=== PATIENT | female | born 2000 | race Caucasian/White ===

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

== ENCOUNTER 2020-01-27 02:10 | Emergency (ER) | payer OTHER, SELFPAY ==
[2020-01-27] MEDS ORDERED: ONDANSETRON 4 MG/2 ML VIAL ONE (02:57)
[2020-01-27] MEDS ORDERED: NA CHLORIDE 0.9% 1,000 ML ONE (02:57)
[2020-01-27 03:28] LABS: Absolute Lymphocytes (CBC) 3.4 K/uL (0.7-4.9); Basophils % 0.6 % (0-1.3); Hematocrit 36.4 % (36.0-45.0); Lymphocytes % 36.6 % (15.3-44.8); MPV 7.8 fL (7.6-11.3); RBC Red Blood Cell Count 4.12 M/uL (3.86-4.86)
[2020-01-27 03:41] LABS: BUN Blood Urea Nitrogen 8 mg/dL (7-18); Bicarbonate 24 mmol/L (21-32); Glucose Level 98 mg/dL (74-106); HCG, Quantitative 3472 mIU/mL (1-3); Sodium Level 142 mmol/L (136-145)
[2020-01-27] MEDS ORDERED: POTASSIUM 25 MEQ EFFERV TAB ONE (04:05)
[2020-01-27] MEDS ORDERED: NITROFURAN MACRO 100 MG CAP PO ONE (04:40)
[2020-01-27 05:53] LABS: Urine Blood 3+ (NEG); Urine Glucose TRACE (NEG); Urine Protein 3+ (NEG); Urine pH 8.5 (5.0-7.0)
--- NOTE | 2020-01-27 06:17 | EDPHYS ---
Physician Documentation [facility] Name: Nabila Quinonez Age: 19 yrs Sex: Female : 2000 Arrival Date: 01/27/2020 Time: 02:13 Bed 7 Private MD: ED Physician Samm Reid HPI: 01/26 02:31 This 19 yrs old Female presents to ER via Unassigned with complaints of mh7 Vaginal Bleeding, +6 WKS PREG. 02:31 The patient presents with vaginal bleeding that is heavy, with clots. Onset: The mh7 symptoms/episode began/occurred yesterday. Modifying factors: The symptoms are alleviated by nothing, the symptoms are aggravated by nothing. Associated signs and symptoms: Pertinent positives: cramping, vaginal bleeding, Pertinent negatives: constipation, diarrhea, dyspareunia, dysuria, fever, hematuria, nausea, urinary frequency, vaginal discharge, vomiting. Severity of symptoms: At their worst the symptoms were moderate, earlier today, in the emergency department the symptoms have improved, moderately. 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 - Social history:: Smoking status: Patient denies any tobacco usage or history of. Patient/guardian denies using alcohol, street drugs, IV drugs. ROS: 02:31 Constitutional: Negative for fever, chills, and weight loss, Eyes: Negative for injury, mh7 pain, redness, and discharge, ENT: Negative for injury, pain, and discharge, Neck: Negative for injury, pain, and swelling, Cardiovascular: Negative for chest pain, palpitations, and edema, Respiratory: Negative for shortness of breath, cough, wheezing, and pleuritic chest pain, Abdomen/GI: Negative for abdominal pain, nausea, vomiting, diarrhea, and constipation, Back: Negative for injury and pain, MS/Extremity: Negative for injury and deformity, Skin: Negative for injury, rash, and discoloration, Neuro: Negative for headache, weakness, numbness, tingling, and seizure, Psych: Negative for depression, anxiety, suicide ideation, homicidal ideation, and hallucinations, Allergy/Immunology: Negative for hives, rash, and allergies, Endocrine: Negative for neck swelling, polydipsia, polyuria, polyphagia, and marked weight changes, Hematologic/Lymphatic: Negative for swollen nodes, abnormal bleeding, and unusual bruising. Exam: 06:10 Constitutional: This is a well developed, well nourished patient who is awake, alert, mh7 and in no acute distress. Head/Face: Normocephalic, atraumatic. Eyes: Pupils equal round and reactive to light, extra-ocular motions intact. Lids and lashes normal. Conjunctiva and sclera are non-icteric and not injected. Cornea within normal limits. Periorbital areas with no swelling, redness, or edema. Neck: Trachea midline, no thyromegaly or masses palpated, and no cervical lymphadenopathy. Supple, full range of motion without nuchal rigidity, or vertebral point tenderness. No Meningismus. Chest/axilla: Normal chest wall appearance and motion. Nontender with no deformity. No lesions are appreciated. Cardiovascular: Regular rate and rhythm with a normal S1 and S2. No gallops, murmurs, or rubs. Normal PMI, no JVD. No pulse deficits. Respiratory: Lungs have equal breath sounds bilaterally, clear to auscultation and percussion. No rales, rhonchi or wheezes noted. No increased work of breathing, no retractions or nasal flaring. Abdomen/GI: Soft, non-tender, with normal bowel sounds. No distension or tympany. No guarding or rebound. No evidence of tenderness throughout. Back: No spinal tenderness. No costovertebral tenderness. Full range of motion. 06:10 Skin: Warm, dry with normal turgor. Normal color with no rashes, no lesions, and no evidence of cellulitis. MS/ Extremity: Pulses equal, no cyanosis. Neurovascular intact. Full, normal range of motion. Neuro: Awake and alert, GCS 15, oriented to person, place, time, and situation. Cranial nerves II-XII grossly intact. Motor strength 5/5 in all extremities. Sensory grossly intact. Cerebellar exam normal. Normal gait. Psych: Awake, alert, with orientation to person, place and time. Behavior, mood, and affect are within normal limits. 06:10 : CVA tenderness, is absent, Pelvic Exam: External exam: is normal, Speculum exam: mild bleeding, no cervicitis, os that is open, tissue in cervix is seen, tissue in vagina is seen, bimanual exam reveals no cervical motion tenderness, os that is open, normal sized uterus, no uterine tenderness, no adnexa tenderness or masses bilaterally, discharge, is not appreciated, the nurse was present for the exam, Gravid exam: Bladder: is normal, Rectal exam: is refused by patient or guardian. Vital Signs: 02:37 BP 110 / 67; Pulse 84; Resp 18; Pulse Ox 100% on R/A; Weight 65.77 kg; Height 5 ft. 6 mg2 in. (167.64 cm); 03:44 Temp 97.8(TE); mg2 04:09 BP 103 / 65; Pulse 81; Resp 18; Pulse Ox 100% on R/A; mg2 05:31 BP 108 / 67; Pulse 90; Resp 18; Pulse Ox 100% on R/A; mg2 02:37 Body Mass Index 23.40 (65.77 kg, 167.64 cm) mg2 MDM: 06:10 Differential diagnosis: ectopic , menometrorrhagia, menorrhea, threatened Ab, mh7 inevitable Ab, complete Ab, retained Ab, septic Ab, missed Ab. Data reviewed: vital signs, nurses notes, lab test result(s), Beta HCG: CBC, electrolytes, urinalysis, radiologic studies, ultrasound. Data interpreted: Pulse oximetry: on room air is 100 %. Interpretation: normal. Counseling: I had a detailed discussion with the patient and/or guardian regarding: the historical points, exam findings, and any diagnostic results supporting the discharge/admit diagnosis, lab results, radiology results, to return to the emergency department if symptoms worsen or persist or if there are any questions or concerns that arise at home. Response to treatment: the patient's symptoms have resolved after treatment, the patient's blood pressure is in an acceptable range, mental status has returned to baseline, the patient no longer shows bradycardia, the patient is not short of breath, the patient is not tachycardic, the patient's pain is gone, the patient's temperature has normalized. 06:16 Patient medically screened. mh7 07:36 ED course: Well appearing, NAD. VSS, no focal neurological deficits. Discussed test [facility] results and findings with the patient. Also discussed treatment options including spontaneous passage, Misoprostol, and D\T\C. Patient preferred to try spontaneous passage. She will follow up with her doctor but agreed to return to the ED if worsening of symptoms or other concerns.. 01/26 02:30 Order name: Abo/rh Typing; Complete Time: 04:09 [facility] 01/26 02:30 Order name: Basic Metabolic Panel; Complete Time: 03:45 [facility] 01/26 02:30 Order name: CBC with Diff; Complete Time: 03:45 [facility] 01/26 02:30 Order name: HCG-Quantitative; Complete Time: 03:45 [facility] 01/26 04:10 Order name: Urine --Ancillary (enter results) [facility] 01/26 04:10 Order name: Urine Dipstick--Ancillary (enter results) [facility] 01/26 02:30 Order name: IV Saline Lock; Complete Time: 02:57 [facility] 01/26 02:30 Order name: Labs collected and sent; Complete Time: 02:57 [facility] 01/26 02:30 Order name: US Transvaginal Ob [facility] 01/26 02:30 Order name: NPO; Complete Time: 02:57 [facility] 01/26 02:30 Order name: Urine Dipstick-Ancillary (obtain specimen); Complete Time: 04:08 [facility] 01/26 02:30 Order name: Urine Test (obtain specimen); Complete Time: 03:01 7 Administered Medications: 03:01 Drug: Zofran (Ondansetron) 4 mg Route: IVP; Site: left forearm; mg2 03:53 Follow up: Response: No adverse reaction mg2 03:01 Drug: NS 0.9% 1000 ml Route: IV; Rate: 1000 ml; Site: left forearm; mg2 04:02 Drug: Potassium Effervescent Tablet 50 mEq Route: PO; mg2 04:02 Follow up: Response: No adverse reaction mg2 04:35 Drug: Macrobid 100 mg Route: PO; mg2 Disposition: 01/27/20 06:16 Discharged to Home. Impression: Incomplete spontaneous without complication, Urinary tract infection, site not specified. - Condition is Stable. - Discharge Instructions: Urinary Tract Infection, Adult, [id number], Miscarriage, [id number]. - Prescriptions for Zofran ODT 4 mg Oral tablet,disintegrating - place 1 tablet by TRANSLINGUAL route every 8 hours As needed; 6 tablet. Tylenol- Codeine #3 300-30 mg Oral Tablet - take 1 tablet by ORAL route every 6 hours As needed; 12 tablet. Macrobid 100 mg Oral Capsule - take 1 capsule by ORAL route every 12 hours for 7 days; 14 capsule. - Medication Reconciliation Form, Thank You Letter, Antibiotic Education, Prescription Opioid Use form. - Follow up: Private Physician; When: 24 Hours; Reason: Worsening of condition, Recheck today's complaints, Continuance of care, Re-evaluation by your physician. Follow up: Ivania Barreto MD; When: 24 Hours; Reason: Worsening of condition, Recheck today's complaints. - Problem is new. - Symptoms have improved. Signatures: Dispatcher [employer] EDVA Brittany Vega RN RN lp1 John García RN RN mg2 Samm Reid MD MD 7 Corrections: (The following items were deleted from the chart) 03:54 03:46 Transvaginal Study (Probe)+[email or web address] ordered. [facility] 06:16 06:16 01/27/2020 06:16 Discharged to Home. Impression: Incomplete spontaneous mh7 without complication. Condition is Stable. Forms are Medication Reconciliation Form, Thank You Letter, Antibiotic Education, Prescription Opioid Use. Follow up: Private Physician; When: 24 Hours; Reason: Worsening of condition, Recheck today's complaints, Continuance of care, Re-evaluation by your physician. Follow up: Ivania Dent; When: 24 Hours; Reason: Worsening of condition, Recheck today's complaints. Problem is new. Symptoms have improved. mh7 06:23 06:16 01/27/2020 06:16 Discharged to Home. Impression: Incomplete spontaneous mg2 without complication; Urinary tract infection, site not specified. Condition is Stable. Forms are Medication Reconciliation Form, Thank You Letter, Antibiotic Education, Prescription Opioid Use. Follow up: Private Physician; When: 24 Hours; Reason: Worsening of condition, Recheck today's complaints, Continuance of care, Re-evaluation by your physician. Follow up: Ivania Jax Dent; When: 24 Hours; Reason: Worsening of condition, Recheck today's complaints. Problem is new. Symptoms have improved. mh7
--- NOTE | 2020-01-27 06:17 | ER ---
Nurse's Notes [facility] Name: Nabila Quinonez Age: 19 yrs Sex: Female : 2000 Arrival Date: 01/27/2020 Time: 02:13 Bed 7 Private MD: Diagnosis: Incomplete spontaneous without complication;Urinary tract infection, site not specified Presentation: 01/26 02:37 Chief complaint: Parent and/or Guardian states: she is 6 weeks , been having mg2 vag bleeding and abdominal pain since yesterday was seen in [facility] yesterday. Coronavirus screen: Client denies travel out of the [place] in the last 14 days. At this time, the client does not indicate any symptoms associated with coronavirus-19. Ebola Screen: No symptoms or risks identified at this time. Initial Sepsis Screen: Does the patient meet any 2 criteria? No. Patient's initial sepsis screen is negative. Does the patient have a suspected source of infection? No. Patient's initial sepsis screen is negative. Risk Assessment: Do you want to hurt yourself or someone else? Patient reports no desire to harm self or others. Onset of symptoms was January 26, 2020. 02:37 Method Of Arrival: Wheelchair mg2 02:37 Acuity: FRENCH 3 mg2 Triage Assessment: 02:57 General: Appears in no apparent distress. comfortable, Behavior is calm, cooperative. mg2 Pain: Complains of pain in abdomen. EENT: No signs and/or symptoms were reported regarding the EENT system. Neuro: Level of Consciousness is awake, alert, obeys commands, Oriented to person, place, time, situation. Cardiovascular: Capillary refill < 3 seconds Patient's skin is warm and dry. Respiratory: Airway is patent Respiratory effort is even, unlabored, Respiratory pattern is regular, symmetrical. GI: Reports lower abdominal pain, vomiting. : Reports vaginal bleeding that is with clots, moderate flow, since yesterday. Derm: Skin is intact, is healthy with good turgor, Skin is pink, warm \T\ dry. normal. Musculoskeletal: Circulation, motion, and sensation intact. Capillary refill < 3 seconds. 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 - Social history:: Smoking status: Patient denies any tobacco usage or history of. Patient/guardian denies using alcohol, street drugs, IV drugs. Screenin:58 Abuse screen: Denies threats or abuse. Denies injuries from another. Nutritional mg2 screening: No deficits noted. Tuberculosis screening: No symptoms or risk factors identified. Fall Risk IV access (20 points). Assessment: 02:58 General: see triage assessment. mg2 03:52 Reassessment: civil cadd technician at bedside to re-evaluate after pelvic exam and POC lp1 obtained with Dr. Reid. 04:08 Reassessment: POC sent to lab for histopathology. mg2 04:18 Reassessment: Verbal order from Dr. Reid for Macrobid 100mg PO now. lp1 05:31 Reassessment: Patient appears in no apparent distress at this time. Patient and/or mg2 family updated on plan of care and expected duration. Pain level reassessed. Vital Signs: 02:37 BP 110 / 67; Pulse 84; Resp 18; Pulse Ox 100% on R/A; Weight 65.77 kg; Height 5 ft. 6 mg2 in. (167.64 cm); 03:44 Temp 97.8(TE); mg2 04:09 BP 103 / 65; Pulse 81; Resp 18; Pulse Ox 100% on R/A; mg2 05:31 BP 108 / 67; Pulse 90; Resp 18; Pulse Ox 100% on R/A; mg2 02:37 Body Mass Index 23.40 (65.77 kg, 167.64 cm) mg2 ED Course: 02:13 Patient arrived in ED. bp1 02:23 Samm Reid MD is Attending Physician. mh7 02:37 John García, CORIN is Primary Nurse. mg2 02:39 Triage completed. mg2 02:39 Arm band placed on. mg2 02:59 Patient has correct armband on for positive identification. Pulse ox on. NIBP on. Door mg2 closed. Warm blanket given. 02:59 No provider procedures requiring assistance completed. Inserted saline lock: 22 gauge mg2 in left forearm, using aseptic technique. Blood collected. by JENNIFER Hendrix. 03:43 Transvaginal Ob In Process Unspecified. EDMS 03:45 Assist provider with pelvic exam: Set up pelvic tray. Performed by Samm Reid MD lp1 Specimens sent to lab. POC sent to pathology. 06:15 Ivania Barreto MD is Referral Physician. [facility] 06:22 IV discontinued, intact, bleeding controlled, No redness/swelling at site. Pressure mg2 dressing applied. Administered Medications: 03:01 Drug: Zofran (Ondansetron) 4 mg Route: IVP; Site: left forearm; mg2 03:53 Follow up: Response: No adverse reaction mg2 03:01 Drug: NS 0.9% 1000 ml Route: IV; Rate: 1000 ml; Site: left forearm; mg2 04:02 Drug: Potassium Effervescent Tablet 50 mEq Route: PO; mg2 04:02 Follow up: Response: No adverse reaction mg2 04:35 Drug: Macrobid 100 mg Route: PO; mg2 Outcome: 06:16 Discharge ordered by . [facility] 06:22 Discharged to home ambulatory, with family. mg2 06:22 Condition: stable 06:22 Discharge instructions given to patient, family, Instructed on discharge instructions, follow up and referral plans. medication usage, Demonstrated understanding of instructions, follow-up care, medications, Prescriptions given X 3. 06:23 Patient left the ED. mg2 Signatures: Dispatcher [employer] EDNC Brittany Vega RN RN lp1 John García RN RN mg2 Ai Spears Maurice, MD MD 7 Corrections: (The following items were deleted from the chart) 02:57 02:37 BP 110 / 67; Resp 18bpm; Pulse Ox 100% RA; 65.77 kg; Height 5 ft. 6 in.; BMI: mg2 23.4; mg2 05:32 05:31 Pulse 90bpm; Resp 18bpm; Pulse Ox 100% RA; mg2 mg2
[2020-01-27 06:40] VITALS: O2SAT 100
[2020-01-27 06:42] VITALS: TEMP 97.8
[2020-01-27 06:45] VITALS: BP 108/67
--- NOTE | 2020-01-27 08:01 | RAD REPORT ---
EXAM DESCRIPTION: US - Transvaginal OB - 01/27/2020 3:42 am CLINICAL HISTORY: with pelvic pain and vaginal bleeding COMPARISON: None. FINDINGS: The uterus measures 10 x 5 x 5 centimeters. A gestational sac is present within the lower uterine segment near the cervix. It contains a yolk sac. It measures 1.7 x 1 x 2.7 centimeters. A fe saida pole is not seen The right and left ovaries normal in size and echotexture the. Left ovary is normal in size and echot exture. . An adnexal mass is not noted. No significant free fluid is seen. IMPRESSION: These findings likely indicate an impending . The estimate gestational age 6 wee ks 0 days
== END 2020-01-27 06:23 | disposition home or self-care (01) ==
LOC: ER 02:10
DX: O03.4 Incomplete spontaneous abortion without complication (principal); O23.41 Unspecified infection of urinary tract in pregnancy, first trimester; Z3A.01 Less than 8 weeks gestation of pregnancy
CPT/HCPCS: 36415; 76817; 80048; 81003; 81025; 84702; 85025; 86900; 86901; 88305; 96374; 99284; J2405; J7030

== ENCOUNTER 2021-02-11 08:31 | Emergency (ER) | payer OTHER ==
--- OUTSIDE RECORDS SUMMARY | 2021-02-11 08:40 | XMS REPORT | Continuity of Care Document ---
:2000 Author Organization [facility] t Address [address] [place] [address] Care Team Providers Name Role Phone Angel ALVA C Primary Care Physician Visit, Nurse Attending Clinician Unavailable Angel ALVA C Attending Clinician Marlen ORTIZ Attending Clinician Unavailable Doctor Unassigned, Name Attending Clinician Unavailable Jorge BEATTY, N Attending Clinician Dillan APTEL Attending Clinician Unavailable Ang Castillo DO Attending Clinician Rina BEATTY, R Attending Clinician Sher FLYNN Attending Clinician Unavailable Brittany Villalta MD Attending Clinician Ajay PAC, S Attending Clinician 3, M[facility] Usg Room Attending Clinician Unavailable Kathryn Castillo MD Attending Clinician Lab Attending Clinician Unavailable Lab, Fam Pob I Attending Clinician Unavailable Naman BEATTY Attending Clinician Henri BEATTY, F Attending Clinician Pollo Haque MD Attending Clinician Katherine TAPIA Attending Clinician Unavailable Payers Payer Name Policy Type Policy Number Effective Date Expiration Date Pollo ESPINOS [id number] 2019 HEALTH 00:00:00 Advance Directives Directive Decision Effective Termination Comments Source Date Date Healthcare Agents on N/A Univ ersity FileNameRelationshipHealthcare of [place] Agent Medical RelationshipCommunicationSare Branch [facility] [phone] (Mobile) Problems Condition Condition Condition Status Onset Resolution Last Treating Co mments Source Name Details Category Date Date Treatment Clinician Date Positive Positive Disease Active Unive rs test for test for 5-07 ity of herpes herpes 00:00: [place] simplex simplex 00 Medical virus virus Branch (HSV) (HSV) antibody antibody Stress at Stress at Disease Active Uni vers home home 3-05 ity of 00:00: [place] 00 Medical Branch Rubella Rubella Disease Active 2019-03 Overview: Univ ers non-immune non-immune 0-14 Address i ty of status, status, 00:00: [facility] antepartum antepartum 00 Me dical Branch GBS (group GBS (group Disease Active 2019-03 Overview : Univers B B 0-09 Pending ity of streptococ streptococ [place] UTI cus) UTI 00 Medica l complicati complicati Br anch ng ng Supervisio Supervisio Disease Active 2020- U nivers n of n of 0-07 ity of high[place]risk high[place] [facility] [place] Nausea and Nausea and Disease Active 2020- U nivers vomiting vomiting 0-07 ity of in in 00:00: [place] 00 [facility] Branch Chlamydia Chlamydia Disease Active Uni vers trachomati trachomati 831 it y of s s 00:00: [place] infection infection 00 Medi lazaro of lower of lower Branch genitourin genitourin tonya sites tonya sites BMI BMI Disease Active 2020- Univers 24.0-24.9, 24.0-24.9, 8-28 it y of adult adult 00:00: [place] 00 Medical Branch Encounter Encounter Disease Active Uni vers for other for other 8 ity of general general 00:00: [place] counseling counseling 00 Me dical or advice or advice Bran ch on on contracept contracept ion ion Marijuana Marijuana Disease Active Overview: Univers use use 8- Formattin ity of 00:00: g of this [place] 00 note Medical might be Branch different from the original. Reports quit 10/1/20, but states daily use prior to finding out about Allergies, Adverse Reactions, Alerts Allergy Allergy Status Severity Reaction(s) Onset Inactive Treating Comm ents Source Name Type Date Date Clinician NO KNOWN Drug Active Univers ALLERGIE Class ity of S [place] [facility] Social History Social Habit Start Date Stop Date Quantity Comments Source ASSERTION 2019-12-10 University of 00:00:00 [place] [facility] Exposure to Not sure University SARS-CoV-2 [place] [facility] (event) Branch Alcohol intake 2020-11-27 2020-11-27 Current drinker Unive rsity of 00:00:00 00:00:00 of alcohol [place] Medical (finding) Branch Tobacco use and 2020-05-15 2020-05-15 Never used Universit y of exposure 00:00:00 00:00:00 [place] [facility] History SDOH 2020-05-15 2020-05-15 2 University o f Alcohol Frequency 00:00:00 00:00:00 [facility] edical Branch Alcohol Comment 2020-05-15 2020-05-15 social Universit y of 00:00:00 00:00:00 [place] [facility] History SDOH 2019-11-08 2019-11-08 99 University o f Alcohol Std 00:00:00 00:00:00 [place] Medical Drinks Branch History SDOK 2019-11-08 2019-11-08 99 University o f Alcohol Binge 00:00:00 00:00:00 [facility] al Branch Sex Assigned At 2000 2000 Universit y of 00:00:00 00:00:00 [facility] Branch Smoking Status Start Date Stop Date Source Unknown if ever smoked Universit y of [place] [facility] [place] Current some day smoker 2020-07-16 00:00:00 [facility] ersity of [facility] Never smoker [facility] Medications Ordered Filled Start Stop Current Ordering Indication Dosage Frequency Signature Comments Components Source Medication Medication Date Date Medication? Clinician (SIG) Name Name medroxyPROG 2021- 150mg Uni vers ESTERone 05-29 control ity of (DEPO-PROVE 16:00: 16:59 counseling [place] RA) 00 :00 Medical injection Branch 150 mg medroxyPROG 2021- No [id number] 150mg Univers ESTERone 3-19 02-18 ity of (DEPO-PROVE 16:00: 16:59 [place] RA) 00 :00 Medical injection Branch 150 mg medroxyPROG 2021-0 2- No [id number] 150mg 150 mg, Univers ESTERone 3-01 05-18 Intramuscu ity of (DEPO-PROVE 16:00: 16:59 lar, [place] RA) 00 :00 [id number], Medical injection 4 doses, Branch 150 mg First dose on Mon05/29/20 at 1100, Last dose on Mon02/05/21 at 1100, Routine medroxyPROG 2021-0 2- No [id number] 150mg Univers ESTERone 3-19 -18 ity of (DEPO-PROVE 16:00: 16:59 [place] RA) 00 :00 Medical injection Branch 150 mg medroxyPROG 2021-0 2- No [id number] 150mg 150 mg, Univers ESTERone 3-01 05-18 Intramuscu ity of (DEPO-PROVE 16:00: 16:59 lar, [place] RA) 00 :00 [id number], Medical injection 4 doses, Branch 150 mg First dose on Mon05/29/20 at 1100, Last dose on Mon02/05/21 at 1100, Routine medroxyPROG 2021-0 2- No [id number] 150mg Univers ESTERone 3-01 05-18 ity of (DEPO-PROVE 16:00: 16:59 [place] RA) 00 :00 Medical injection Branch 150 mg medroxyPROG 2021-0 2- No [id number] 150mg Univers ESTERone 3-19 -18 ity of (DEPO-PROVE 16:00: 16:59 [place] RA) 00 :00 Medical injection Branch 150 mg medroxyPROG 2021-0 2- No [id number] 150mg Univers ESTERone 3-19 -18 ity of (DEPO-PROVE 16:00: 16:59 [place] RA) 00 :00 Medical injection Branch 150 mg medroxyPROG 2021-0 2- No [id number] 150mg Univers ESTERone 3-19 -18 ity of (DEPO-PROVE 16:00: 16:59 [place] RA) 00 :00 Medical injection Branch 150 mg medroxyPROG 2021-0 2- No [id number] 150mg Univers ESTERone 3-19 -18 ity of (DEPO-PROVE 16:00: 16:59 [place] RA) 00 :00 Medical injection Branch 150 mg medroxyPROG 2021- No [id number] 150mg Univers ESTERone 05-2918 ity of (DEPO-PROVE 16:00: 16:59 [place] RA) 00 :00 Medical injection Branch 150 mg medroxyPROG 2021- No [id number] 150mg 150 mg, Univers ESTERone 05-29-18 Intramuscu ity of (DEPO-PROVE 16:00: 16:59 lar, [place] RA) 00 :00 [id number], Medical injection 4 doses, Branch 150 mg First dose on Mon05/29/20 at 1100, Last dose on Mon02/05/21 at 1100, Routine medroxyPROG 2021- No [id number] 150mg Univers ESTERone 05-2918 ity of (DEPO-PROVE 16:00: 16:59 [place] RA) 00 :00 Medical injection Branch 150 mg medroxyPROG 2021- No [id number] 150mg Univers ESTERone 05-2918 ity of (DEPO-PROVE 16:00: 16:59 [place] RA) 00 :00 Medical injection Branch 150 mg medroxyPROG 0 2021- No [id number] 150mg Univers ESTERone 05-2918 ity of (DEPO-PROVE 16:00: 16:59 [place] RA) 00 :00 Medical injection Branch 150 mg medroxyPROG 2021- No [id number] 150mg 150 mg, Univers ESTERone 05-29-18 Intramuscu ity of (DEPO-PROVE 16:00: 16:59 lar, [place] RA) 00 :00 [id number], Medical injection 4 doses, Branch 150 mg First dose on Mon05/29/20 at 1100, Last dose on Mon02/05/21 at 1100, Routine medroxyPROG 2022- No 150mg Uni vers ESTERone 05-2918 control ity of (DEPO-PROVE 16:00: 16:59 counseling [place] RA) 00 :00 Medical injection Branch 150 mg multivitami Yes Take by Un kadeem n (DAILY 3-05 mouth. ity of VITAMINS 16:03: [place] ORAL) 28 Medical Branch multivitami 0 Yes Take by Un kadeem n (DAILY 3-05 mouth. ity of VITAMINS 16:03: [place] ORAL) 28 Medical Branch multivitami 0 Yes Take by Un kadeem n (DAILY 3-05 mouth. ity of VITAMINS 16:03: [place] ORAL) 28 Medical Branch multivitami 0 Yes Take by Un kadeem n (DAILY 3-05 mouth. ity of VITAMINS 16:03: [place] ORAL) 28 Medical Branch multivitami 0 Yes Take by Un kadeem n (DAILY 3-05 mouth. ity of VITAMINS 16:03: [place] ORAL) 28 Medical Branch multivitami 0 Yes Take by Un kadeem n (DAILY 3-05 mouth. ity of VITAMINS 16:03: [place] ORAL) 28 Medical Branch multivitami 0 Yes Take by Un kadeem n (DAILY 3-05 mouth. ity of VITAMINS 16:03: [place] ORAL) 28 Medical Branch multivitami 0 Yes Take by Un kadeem n (DAILY 3-05 mouth. ity of VITAMINS 16:03: [place] ORAL) 28 Medical Branch multivitami 0 Yes Take by Un kadeem n (DAILY 3-05 mouth. ity of VITAMINS 16:03: [place] ORAL) 28 Medical Branch multivitami 0 Yes Take by Un kadeem n (DAILY 3-05 mouth. ity of VITAMINS 16:03: [place] ORAL) 28 Medical Branch multivitami 0 Yes Take by Un kadeem n (DAILY 3-05 mouth. ity of VITAMINS 16:03: [place] ORAL) 28 Medical Branch multivitami 0 Yes Take by Un kadeem n (DAILY 3-05 mouth. ity of VITAMINS 16:03: [place] ORAL) 28 Medical Branch multivitami 0 Yes Take by Un kadeem n (DAILY 3-05 mouth. ity of VITAMINS 10:03: [place] ORAL) 28 Medical Branch multivitami 0 Yes Take by Un kadeem n (DAILY 3-05 mouth. ity of VITAMINS 10:03: [place] ORAL) 28 Medical Branch multivitami 0 Yes Take by Un kadeem n (DAILY 3-05 mouth. ity of VITAMINS 10:03: [place] ORAL) 28 Medical Branch multivitami Yes Take by Un kadeem n (DAILY 3-05 mouth. ity of VITAMINS 10:03: [place] ORAL) 28 Medical Branch amoxicillin 2020- No [id number] 1{tbl} Take 1 Univers -clavulanat -18 -29 tablet by it y of e 875-125 00:00: 05:59 mouth [place] mg per 00 :00 every 12 Medical tablet (twelve) Branch hours for 10 days. amoxicillin 2020- No [id number] 1{tbl} Take 1 Univers -clavulanat -18 - tablet by it y of e 875-125 00:00: 05:59 mouth [place] mg per 00 :00 every 12 Medical tablet (twelve) Branch hours for 10 days. ampicillin 2019-03 2020- No [id number] 500mg Take 1 Univers 500 mg 0-09 10-20 capsule by ity of capsule 00:00: 04:59 mouth 4 [place] 00 :00 (four) Medical times Branch daily for 10 days. ampicillin 2019-03- No [id number] 500mg Take 1 Univers 500 mg 0-09 10-20 capsule by ity of capsule 00:00: 04:59 mouth 4 [place] 00 :00 (four) Medical times Branch daily for 10 days. ampicillin 2019-03- No [id number] 500mg Take 1 Univers 500 mg 0-09 10-20 capsule by ity of capsule 00:00: 04:59 mouth 4 [place] 00 :00 (four) Medical times Branch daily for 10 days. proMETHazin 2019-03 Yes [id number] 25mg Take 1 Univers e 25 mg 0-07 tablet by ity of tablet 00:00: mouth [place] 00 every 6 Medical (six) Branch hours as needed for Nausea and Vomiting (N/V). PNV 67-iron 2019-03 Yes [id number] 1{each} Take 1 Univers ps-folate 0-07 Each by ity of no.1-dha 00:00: mouth [place] (VITAFOL 00 daily. Medical ULTRA) 29 Branch mg iron- 1 mg-200 mg Cap proMETHazin 2019-03 Yes [id number] 25mg Take 1 Univers e 25 mg 0-07 tablet by ity of tablet 00:00: mouth [place] 00 every 6 Medical (six) Branch hours as needed for Nausea and Vomiting (N/V). PNV 67-iron 2020-1 Yes [id number] 1{each} Take 1 Univers ps-folate 0-07 Each by ity of no.1-dha 00:00: mouth [place] (VITAFOL 00 daily. Medical ULTRA) 29 Branch mg iron- 1 mg-200 mg Cap proMETHazin 2020-1 Yes [id number] 25mg Take 1 Univers e 25 mg 0-07 tablet by ity of tablet 00:00: mouth [place] 00 every 6 Medical (six) Branch hours as needed for Nausea and Vomiting (N/V). PNV 67-iron 2020-1 Yes [id number] 1{each} Take 1 Univers ps-folate 0-07 Each by ity of no.1-dha 00:00: mouth [place] (VITAFOL 00 daily. Medical ULTRA) 29 Branch mg iron- 1 mg-200 mg Cap proMETHazin 2020-1 Yes [id number] 25mg Take 1 Univers e 25 mg 0-07 tablet by ity of tablet 00:00: mouth [place] 00 every 6 Medical (six) Branch hours as needed for Nausea and Vomiting (N/V). PNV 67-iron 2020-1 Yes [id number] 1{each} Take 1 Univers ps-folate 0-07 Each by ity of no.1-dha 00:00: mouth [place] (VITAFOL 00 daily. Medical ULTRA) 29 Branch mg iron- 1 mg-200 mg Cap proMETHazin 2020-1 Yes [id number] 25mg Take 1 Univers e 25 mg 0-07 tablet by ity of tablet 00:00: mouth [place] 00 every 6 Medical (six) Branch hours as needed for Nausea and Vomiting (N/V). PNV 67-iron 2020-1 Yes [id number] 1{each} Take 1 Univers ps-folate 0-07 Each by ity of no.1-dha 00:00: mouth [place] (VITAFOL 00 daily. Medical ULTRA) 29 Branch mg iron- 1 mg-200 mg Cap proMETHazin 2020-1 Yes [id number] 25mg Take 1 Univers e 25 mg 0-07 tablet by ity of tablet 00:00: mouth [place] 00 every 6 Medical (six) Branch hours as needed for Nausea and Vomiting (N/V). PNV 67-iron 2020-1 Yes [id number] 1{each} Take 1 Univers ps-folate 0-07 Each by ity of no.1-dha 00:00: mouth [place] (VITAFOL 00 daily. Medical ULTRA) 29 Branch mg iron- 1 mg-200 mg Cap proMETHazin 2020-1 Yes [id number] 25mg Take 1 Univers e 25 mg 0-07 tablet by ity of tablet 00:00: mouth [place] 00 every 6 Medical (six) Branch hours as needed for Nausea and Vomiting (N/V). PNV 67-iron 2020- Yes [id number] 1{each} Take 1 Univers ps-folate 0-07 Each by ity of no.1-dha 00:00: mouth [place] (VITAFOL 00 daily. Medical ULTRA) 29 Branch mg iron- 1 mg-200 mg Cap proMETHazin 2020-1 Yes [id number] 25mg Take 1 Univers e 25 mg 0-07 tablet by ity of tablet 00:00: mouth [place] 00 every 6 Medical (six) Branch hours as needed for Nausea and Vomiting (N/V). PNV 67-iron 2020- Yes [id number] 1{each} Take 1 Univers ps-folate 0-07 Each by ity of no.1-dha 00:00: mouth [place] (VITAFOL 00 daily. Medical ULTRA) 29 Branch mg iron- 1 mg-200 mg Cap proMETHazin 2020-1 Yes [id number] 25mg Take 1 Univers e 25 mg 0-07 tablet by ity of tablet 00:00: mouth [place] 00 every 6 Medical (six) Branch hours as needed for Nausea and Vomiting (N/V). PNV 67-iron 2020- Yes [id number] 1{each} Take 1 Univers ps-folate 0-07 Each by ity of no.1-dha 00:00: mouth [place] (VITAFOL 00 daily. Medical ULTRA) 29 Branch mg iron- 1 mg-200 mg Cap proMETHazin 2020-1 Yes [id number] 25mg Take 1 Univers e 25 mg 0-07 tablet by ity of tablet 00:00: mouth [place] 00 every 6 Medical (six) Branch hours as needed for Nausea and Vomiting (N/V). PNV 67-iron 2020- Yes [id number] 1{each} Take 1 Univers ps-folate 0-07 Each by ity of no.1-dha 00:00: mouth [place] (VITAFOL 00 daily. Medical ULTRA) 29 Branch mg iron- 1 mg-200 mg Cap proMETHazin 2020-1 Yes [id number] 25mg Take 1 Univers e 25 mg 0-07 tablet by ity of tablet 00:00: mouth [place] 00 every 6 Medical (six) Branch hours as needed for Nausea and Vomiting (N/V). PNV 67-iron 2020-1 Yes [id number] 1{each} Take 1 Univers ps-folate 0-07 Each by ity of no.1-dha 00:00: mouth [place] (VITAFOL 00 daily. Medical ULTRA) 29 Branch mg iron- 1 mg-200 mg Cap proMETHazin 2020-1 Yes [id number] 25mg Take 1 Univers e 25 mg 0-07 tablet by ity of tablet 00:00: mouth [place] 00 every 6 Medical (six) Branch hours as needed for Nausea and Vomiting (N/V). PNV 67-iron 2020- Yes [id number] 1{each} Take 1 Univers ps-folate 0-07 Each by ity of no.1-dha 00:00: mouth [place] (VITAFOL 00 daily. Medical ULTRA) 29 Branch mg iron- 1 mg-200 mg Cap proMETHazin 2020-1 Yes [id number] 25mg Take 1 Univers e 25 mg 0-07 tablet by ity of tablet 00:00: mouth [place] 00 every 6 Medical (six) Branch hours as needed for Nausea and Vomiting (N/V). PNV 67-iron 2020- Yes [id number] 1{each} Take 1 Univers ps-folate 0-07 Each by ity of no.1-dha 00:00: mouth [place] (VITAFOL 00 daily. Medical ULTRA) 29 Branch mg iron- 1 mg-200 mg Cap proMETHazin 2020-1 Yes [id number] 25mg Take 1 Univers e 25 mg 0-07 tablet by ity of tablet 00:00: mouth [place] 00 every 6 Medical (six) Branch hours as needed for Nausea and Vomiting (N/V). PNV 67-iron 2020-1 Yes [id number] 1{each} Take 1 Univers ps-folate 0-07 Each by ity of no.1-dha 00:00: mouth [place] (VITAFOL 00 daily. Medical ULTRA) 29 Branch mg iron- 1 mg-200 mg Cap proMETHazin 2020-1 Yes [id number] 25mg Take 1 Univers e 25 mg 0-07 tablet by ity of tablet 00:00: mouth [place] 00 every 6 Medical (six) Branch hours as needed for Nausea and Vomiting (N/V). PNV 67-iron 2020-1 Yes [id number] 1{each} Take 1 Univers ps-folate 0-07 Each by ity of no.1-dha 00:00: mouth [place] (VITAFOL 00 daily. Medical ULTRA) 29 Branch mg iron- 1 mg-200 mg Cap proMETHazin 2020-1 Yes [id number] 25mg Take 1 Univers e 25 mg 0-07 tablet by ity of tablet 00:00: mouth [place] 00 every 6 Medical (six) Branch hours as needed for Nausea and Vomiting (N/V). PNV 67-iron 2020-1 Yes [id number] 1{each} Take 1 Univers ps-folate 0-07 Each by ity of no.1-dha 00:00: mouth [place] (VITAFOL 00 daily. Medical ULTRA) 29 Branch mg iron- 1 mg-200 mg Cap proMETHazin 2020-1 Yes [id number] 25mg Take 1 Univers e 25 mg 0-07 tablet by ity of tablet 00:00: mouth [place] 00 every 6 Medical (six) Branch hours as needed for Nausea and Vomiting (N/V). PNV 67-iron 2020-1 Yes [id number] 1{each} Take 1 Univers ps-folate 0-07 Each by ity of no.1-dha 00:00: mouth [place] (VITAFOL 00 daily. Medical ULTRA) 29 Branch mg iron- 1 mg-200 mg Cap proMETHazin 2020-1 Yes [id number] 25mg Take 1 Univers e 25 mg 0-07 tablet by ity of tablet 00:00: mouth [place] 00 every 6 Medical (six) Branch hours as needed for Nausea and Vomiting (N/V). PNV 67-iron 2020-1 Yes [id number] 1{each} Take 1 Univers ps-folate 0-07 Each by ity of no.1-dha 00:00: mouth [place] (VITAFOL 00 daily. Medical ULTRA) 29 Branch mg iron- 1 mg-200 mg Cap proMETHazin 2020-1 Yes [id number] 25mg Take 1 Univers e 25 mg 0-07 tablet by ity of tablet 00:00: mouth [place] 00 every 6 Medical (six) Branch hours as needed for Nausea and Vomiting (N/V). PNV 67-iron 2020-1 Yes [id number] 1{each} Take 1 Univers ps-folate 0-07 Each by ity of no.1-dha 00:00: mouth [place] (VITAFOL 00 daily. Medical ULTRA) 29 Branch mg iron- 1 mg-200 mg Cap proMETHazin 2020-1 Yes [id number] 25mg Take 1 Univers e 25 mg 0-07 tablet by ity of tablet 00:00: mouth [place] 00 every 6 Medical (six) Branch hours as needed for Nausea and Vomiting (N/V). PNV 67-iron 2020- Yes [id number] 1{each} Take 1 Univers ps-folate 0-07 Each by ity of no.1-dha 00:00: mouth [place] (VITAFOL 00 daily. Medical ULTRA) 29 Branch mg iron- 1 mg-200 mg Cap proMETHazin 2020-1 Yes [id number] 25mg Take 1 Univers e 25 mg 0-07 tablet by ity of tablet 00:00: mouth [place] 00 every 6 Medical (six) Branch hours as needed for Nausea and Vomiting (N/V). PNV 67-iron 2020- Yes [id number] 1{each} Take 1 Univers ps-folate 0-07 Each by ity of no.1-dha 00:00: mouth [place] (VITAFOL 00 daily. Medical ULTRA) 29 Branch mg iron- 1 mg-200 mg Cap proMETHazin 2020-1 Yes [id number] 25mg Take 1 Univers e 25 mg 0-07 tablet by ity of tablet 00:00: mouth [place] 00 every 6 Medical (six) Branch hours as needed for Nausea and Vomiting (N/V). PNV 67-iron 2020- Yes [id number] 1{each} Take 1 Univers ps-folate 0-07 Each by ity of no.1-dha 00:00: mouth [place] (VITAFOL 00 daily. Medical ULTRA) 29 Branch mg iron- 1 mg-200 mg Cap proMETHazin 2020-1 Yes [id number] 25mg Take 1 Univers e 25 mg 0-07 tablet by ity of tablet 00:00: mouth [place] 00 every 6 Medical (six) Branch hours as needed for Nausea and Vomiting (N/V). PNV 67-iron 2020- Yes [id number] 1{each} Take 1 Univers ps-folate 0-07 Each by ity of no.1-dha 00:00: mouth [place] (VITAFOL 00 daily. Medical ULTRA) 29 Branch mg iron- 1 mg-200 mg Cap proMETHazin 2020- Yes [id number] 25mg Take 1 Univers e 25 mg 0-07 tablet by ity of tablet 00:00: mouth [place] 00 every 6 Medical (six) Branch hours as needed for Nausea and Vomiting (N/V). PNV 67-iron 2020- Yes [id number] 1{each} Take 1 Univers ps-folate 0-07 Each by ity of no.1-dha 00:00: mouth [place] (VITAFOL 00 daily. Medical ULTRA) 29 Branch mg iron- 1 mg-200 mg Cap proMETHazin 2020- Yes [id number] 25mg Take 1 Univers e 25 mg 0-07 tablet by ity of tablet 00:00: mouth [place] 00 every 6 Medical (six) Branch hours as needed for Nausea and Vomiting (N/V). PNV 67-iron 2020- Yes [id number] 1{each} Take 1 Univers ps-folate 0-07 Each by ity of no.1-dha 00:00: mouth [place] (VITAFOL 00 daily. Medical ULTRA) 29 Branch mg iron- 1 mg-200 mg Cap proMETHazin 2020- Yes [id number] 25mg Take 1 Univers e 25 mg 0-07 tablet by ity of tablet 00:00: mouth [place] 00 every 6 Medical (six) Branch hours as needed for Nausea and Vomiting (N/V). PNV 67-iron 2020- Yes [id number] 1{each} Take 1 Univers ps-folate 0-07 Each by ity of no.1-dha 00:00: mouth [place] (VITAFOL 00 daily. Medical ULTRA) 29 Branch mg iron- 1 mg-200 mg Cap proMETHazin 2020- Yes [id number] 25mg Take 1 Univers e 25 mg 0-07 tablet by ity of tablet 00:00: mouth [place] 00 every 6 Medical (six) Branch hours as needed for Nausea and Vomiting (N/V). PNV 67-iron 2020- Yes [id number] 1{each} Take 1 Univers ps-folate 0-07 Each by ity of no.1-dha 00:00: mouth [place] (VITAFOL 00 daily. Medical ULTRA) 29 Branch mg iron- 1 mg-200 mg Cap proMETHazin 2020-2020- No [id number] 25mg Take 1 Univers e 25 mg 0-07 03-05 tablet by ity of tablet 00:00: 00:00 mouth [place] 00 :00 every 6 Medical (six) Branch hours as needed for Nausea and Vomiting (N/V). PNV 67-iron 2019-03 No [id number] 1{each} Take 1 Univers ps-folate 0-07 03-05 Each by ity of no.1-dha 00:00: 00:00 mouth [place] (VITAFOL 00 :00 daily. Medical ULTRA) 29 Branch mg iron- 1 mg-200 mg Cap proMETHazin 2019-03 No [id number] 25mg Take 1 Univers e 25 mg 0-07 03-05 tablet by ity of tablet 00:00: 00:00 mouth [place] 00 :00 every 6 Medical (six) Branch hours as needed for Nausea and Vomiting (N/V). PNV 67-iron 2019-03 No [id number] 1{each} Take 1 Univers ps-folate 0-07 03-05 Each by ity of no.1-dha 00:00: 00:00 mouth [place] (VITAFOL 00 :00 daily. Medical ULTRA) 29 Branch mg iron- 1 mg-200 mg Cap proMETHazin 2019-03- No [id number] 25mg Take 1 Univers e 25 mg 0-07 03-05 tablet by ity of tablet 00:00: 00:00 mouth [place] 00 :00 every 6 Medical (six) Branch hours as needed for Nausea and Vomiting (N/V). PNV 67-iron 2019-03 No [id number] 1{each} Take 1 Univers ps-folate 0-07 03-05 Each by ity of no.1-dha 00:00: 00:00 mouth [place] (VITAFOL 00 :00 daily. Medical ULTRA) 29 Branch mg iron- 1 mg-200 mg Cap azithromyci 2019- No [id number] 1000mg Take 2 Univers n 8-31 -01 tablets by ity of (ZITHROMAX) 00:00: 04:59 mouth once [place] 500 mg 00 :00 now for 1 Medical tablet dose. Branch No known No Univers medications ity [facility] No known No Univers medications ity of [facility] No known No Univers medications ity of [facility] Immunizations Ordered Immunization Filled Immunization Date Status Commen ts Source Name Name Influenza Virus 2019-12-18 Completed Universit y of Vaccine Quad .5 mL 00:00:00 [place] Medical IM 6+ MO Branch Influenza Virus 2019-12-18 Completed Universit y of Vaccine Quad .5 mL 00:00:00 [place] Medical IM 6+ MO Branch Influenza Virus 2019-12-18 Completed Universit y of Vaccine Quad .5 mL 00:00:00 [place] Medical IM 6+ MO Branch Influenza Virus 2019-12-18 Completed Universit y of Vaccine Quad .5 mL 00:00:00 [place] Medical IM 6+ MO Branch Influenza Virus 2019-12-18 Completed Universit y of Vaccine Quad .5 mL 00:00:00 [place] Medical IM 6+ MO Branch Influenza Virus 2019-12-18 Completed Universit y of Vaccine Quad .5 mL 00:00:00 [place] Medical IM 6+ MO Branch Influenza Virus 2019-12-18 Completed Universit y of Vaccine Quad .5 mL 00:00:00 [place] Medical IM 6+ MO Branch Influenza Virus 2019-12-18 Completed Universit y of Vaccine Quad .5 mL 00:00:00 [place] Medical IM 6+ MO Branch Influenza Virus 2019-12-18 Completed Universit y of Vaccine Quad .5 mL 00:00:00 [place] Medical IM 6+ MO Branch Influenza Virus 2019-12-18 Completed Universit y of Vaccine Quad .5 mL 00:00:00 [place] Medical IM 6+ MO Branch Influenza Virus 2019-12-18 Completed Universit y of Vaccine Quad .5 mL 00:00:00 [place] Medical IM 6+ MO Branch Influenza Virus 2019-12-18 Completed Universit y of Vaccine Quad .5 mL 00:00:00 [place] Medical IM 6+ MO Branch Influenza Virus 2019-12-18 Completed Universit y of Vaccine Quad .5 mL 00:00:00 [place] Medical IM 6+ MO Branch Influenza Virus 2019-12-18 Completed Universit y of Vaccine Quad .5 mL 00:00:00 [place] Medical IM 6+ MO Branch Influenza Virus 2019-12-18 Completed Universit y of Vaccine Quad .5 mL 00:00:00 [facility] Influenza Virus 2019-12-18 Completed [facility] .5 mL 00:00:00 [facility] Influenza Virus 2019-12-18 Completed [facility] .5 mL 00:00:00 [facility] Influenza Virus 2019-12-18 Completed [facility] .5 mL 00:00:00 [facility] Influenza Virus 2019-12-18 Completed [facility] .5 mL 00:00:00 [facility] Influenza Virus 2019-12-18 Completed [facility] .5 mL 00:00:00 [facility] Influenza Virus 2019-12-18 Completed [facility] .5 mL 00:00:00 [facility] Influenza Virus 2019-12-18 Completed [facility] .5 mL 00:00:00 [facility] Influenza Virus 2019-12-18 Completed [facility] .5 mL 00:00:00 [facility] Influenza Virus 2019-12-18 Completed [facility] .5 mL 00:00:00 [facility] Influenza Virus 2019-12-18 Completed [facility] .5 mL 00:00:00 [facility] Influenza Virus 2019-12-18 Completed [facility] .5 mL 00:00:00 [facility] Influenza Virus 2019-12-18 Completed [facility] .5 mL 00:00:00 [facility] Influenza Virus 2019-12-18 Completed [facility] .5 mL 00:00:00 [facility] Influenza Virus 2019-12-18 Completed [facility] .5 mL 00:00:00 [facility] Influenza Virus 2019-12-18 Completed [facility] .5 mL 00:00:00 [facility] Influenza Virus 2019-12-18 Completed [facility] .5 mL 00:00:00 [facility] Influenza Virus 2019-12-18 Completed [facility] .5 mL 00:00:00 [facility] Influenza Virus 2019-12-18 Completed [facility] .5 mL 00:00:00 [facility] Influenza Virus 2019-12-18 Completed [facility] .5 mL 00:00:00 [facility] Influenza Virus 2019-12-18 Completed [facility] .5 mL 00:00:00 [facility] Influenza Virus 2019-12-18 Completed [facility] .5 mL 00:00:00 [facility] Influenza Virus 2019-12-18 Completed [facility] .5 mL 00:00:00 [facility] Influenza Virus 2019-12-18 Completed [facility] .5 mL 00:00:00 [facility] Influenza Virus 2019-12-18 Completed [facility] .5 mL 00:00:00 [facility] Influenza Virus 2019-12-18 Completed [facility] .5 mL 00:00:00 [facility] Influenza Virus 2019-12-18 Completed [facility] .5 mL 00:00:00 [facility] 6+ MO [facility] Meningococcal 2019-02-13 Completed [facility] Vaccine 00:00:00 [facility] Meningococcal 2019-02-13 Completed [facility] Vaccine 00:00:00 [facility] Meningococcal 2019-02-13 Completed [facility] Vaccine 00:00:00 [facility] Meningococcal 2019-02-13 Completed [facility] Vaccine 00:00:00 [facility] Meningococcal 2019-02-13 Completed [facility] Vaccine 00:00:00 [facility] Meningococcal 2019-02-13 Completed [facility] Vaccine 00:00:00 [facility] Meningococcal 2019-02-13 Completed [facility] Vaccine 00:00:00 [facility] Meningococcal 2019-02-13 Completed [facility] Vaccine 00:00:00 [facility] Meningococcal 2019-02-13 Completed [facility] Vaccine 00:00:00 [facility] Meningococcal 2019-02-13 Completed [facility] Vaccine 00:00:00 [facility] Meningococcal 2019-02-13 Completed [facility] Vaccine 00:00:00 [facility] Meningococcal 2019-02-13 Completed [facility] Vaccine 00:00:00 [facility] Meningococcal 2019-02-13 Completed [facility] Vaccine 00:00:00 [facility] Meningococcal 2019-02-13 Completed [facility] Vaccine 00:00:00 [facility] Meningococcal 2019-02-13 Completed [facility] Vaccine 00:00:00 [facility] Meningococcal 2019-02-13 Completed [facility] Vaccine 00:00:00 [facility] HPV 2014-01-02 Completed [facility] 00:00:00 [facility] HPV 2014-01-02 Completed [facility] 00:00:00 [facility] HPV 2014-01-02 Completed [facility] 00:00:00 [facility] HPV 2014-01-02 Completed [facility] 00:00:00 [facility] HPV 2014-01-02 Completed [facility] 00:00:00 [facility] HPV 2014-01-02 Completed [facility] 00:00:00 [facility] HPV 2014-01-02 Completed [facility] 00:00:00 [facility] HPV 2014-01-02 Completed [facility] 00:00:00 [facility] HPV 2014-01-02 Completed [facility] 00:00:00 [facility] HPV 2014-01-02 Completed [facility] 00:00:00 [facility] HPV 2014-01-02 Completed [facility] 00:00:00 [facility] HPV 2014-01-02 Completed [facility] 00:00:00 [facility] HPV 2014-01-02 Completed [facility] 00:00:00 [facility] HPV 2014-01-02 Completed [facility] 00:00:00 [facility] HPV 2014-01-02 Completed [facility] 00:00:00 [facility] HPV 2014-01-02 Completed [facility] 00:00:00 [facility] TDAP 2012-12-25 Completed [facility] 00:00:00 [facility] HPV 2012-12-25 Completed [facility] 00:00:00 [facility] Meningococcal 2012-12-25 Completed [facility] Vaccine 00:00:00 [facility] TDAP 2012-12-25 Completed [facility] 00:00:00 [facility] HPV 2012-12-25 Completed [facility] 00:00:00 [facility] Meningococcal 2012-12-25 Completed [facility] Vaccine 00:00:00 [facility] HPV 2012-12-25 Completed [facility] 00:00:00 [facility] Meningococcal 2012-12-25 Completed [facility] Vaccine 00:00:00 [facility] TDAP 2012-12-25 Completed [facility] 00:00:00 [facility] HPV 2012-12-25 Completed [facility] 00:00:00 [facility] Meningococcal 2012-12-25 Completed [facility] Vaccine 00:00:00 [facility] TDAP 2012-12-25 Completed [facility] 00:00:00 [facility] HPV 2012-12-25 Completed [facility] 00:00:00 [facility] Meningococcal 2012-12-25 Completed [facility] Vaccine 00:00:00 [facility] TDAP 2012-12-25 Completed [facility] 00:00:00 [facility] HPV 2012-12-25 Completed [facility] 00:00:00 [facility] Meningococcal 2012-12-25 Completed [facility] Vaccine 00:00:00 [facility] TDAP 2012-12-25 Completed [facility] 00:00:00 [facility] HPV 2012-12-25 Completed [facility] 00:00:00 [facility] Meningococcal 2012-12-25 Completed [facility] Vaccine 00:00:00 [facility] TDAP 2012-12-25 Completed [facility] 00:00:00 [facility] HPV 2012-12-25 Completed [facility] 00:00:00 [facility] Meningococcal 2012-12-25 Completed [facility] Vaccine 00:00:00 [facility] TDAP 2012-12-25 Completed [facility] 00:00:00 [facility] HPV 2012-12-25 Completed [facility] 00:00:00 [facility] HPV 2012-12-25 Completed [facility] 00:00:00 [facility] Meningococcal 2012-12-25 Completed [facility] Vaccine 00:00:00 [facility] TDAP 2012-12-25 Completed [facility] 00:00:00 [facility] HPV 2012-12-25 Completed [facility] 00:00:00 [facility] Meningococcal 2012-12-25 Completed [facility] Vaccine 00:00:00 [facility] TDAP 2012-12-25 Completed [facility] 00:00:00 [facility] HPV 2012-12-25 Completed [facility] 00:00:00 [facility] Meningococcal 2012-12-25 Completed [facility] of Vaccine 00:00:00 [facility] TDAP 2012-12-25 Completed [facility] 00:00:00 [facility] HPV 2012-12-25 Completed [facility] 00:00:00 [facility] Meningococcal 2012-12-25 Completed [facility] Vaccine 00:00:00 [facility] TDAP 2012-12-25 Completed [facility] 00:00:00 [facility] HPV 2012-12-25 Completed [facility] 00:00:00 [facility] Meningococcal 2012-12-25 Completed [facility] Vaccine 00:00:00 [facility] Meningococcal 2012-12-25 Completed [facility] Vaccine 00:00:00 [facility] TDAP 2012-12-25 Completed [facility] 00:00:00 [facility] HPV 2012-12-25 Completed [facility] 00:00:00 [facility] Meningococcal 2012-12-25 Completed [facility] of Vaccine 00:00:00 [facility] TDAP 2012-12-25 Completed [facility] of 00:00:00 [facility] HPV 2012-12-25 Completed [facility] 00:00:00 [facility] Meningococcal 2012-12-25 Completed [facility] of Vaccine 00:00:00 [facility] TDAP 2012-12-25 Completed [facility] 00:00:00 [facility] TDAP 2012-12-25 Completed [facility] 00:00:00 [facility] Varicella 2006-05-10 Completed [facility] of (varivax)(chicken 00:00:00 [facility] pox[facility] HEPATITIS A 2006-05-10 Completed [facility] 00:00:00 [facility] Varicella 2006-05-10 Completed [facility] (varivax)(chicken 00:00:00 [facility] pox[facility] HEPATITIS A 2006-05-10 Completed [facility] 00:00:00 [facility] HEPATITIS A 2006-05-10 Completed [facility] 00:00:00 [facility] Varicella 2006-05-10 Completed [facility] (varivax)(chicken 00:00:00 [facility] pox[facility] HEPATITIS A 2006-05-10 Completed [facility] 00:00:00 [facility] Varicella 2006-05-10 Completed [facility] (varivax)(chicken 00:00:00 [facility] pox[facility] HEPATITIS A 2006-05-10 Completed [facility] 00:00:00 [facility] Varicella 2006-05-10 Completed [facility] (varivax)(chicken 00:00:00 [facility] pox) [facility] HEPATITIS A 2006-05-10 Completed [facility] 00:00:00 [facility] Varicella 2006-05-10 Completed [facility] (varivax)(chicken 00:00:00 [facility] pox[facility] HEPATITIS A 2006-05-10 Completed [facility] 00:00:00 [facility] Varicella 2006-05-10 Completed [facility] (varivax)(chicken 00:00:00 [facility] pox[facility] HEPATITIS A 2006-05-10 Completed [facility] 00:00:00 [facility] Varicella 2006-05-10 Completed [facility] (varivax)(chicken 00:00:00 [facility] pox) [facility] HEPATITIS A 2006-05-10 Completed [facility] 00:00:00 [facility] Varicella 2006-05-10 Completed [facility] (varivax)(chicken 00:00:00 [facility] pox) [facility] HEPATITIS A 2006-05-10 Completed [facility] 00:00:00 [facility] Varicella 2006-05-10 Completed [facility] (varivax)(chicken 00:00:00 [facility] pox) [facility] HEPATITIS A 2006-05-10 Completed [facility] 00:00:00 [facility] Varicella 2006-05-10 Completed [facility] (varivax)(chicken 00:00:00 [facility] pox) [facility] HEPATITIS A 2006-05-10 Completed [facility] 00:00:00 [facility] HEPATITIS A 2006-05-10 Completed [facility] 00:00:00 [facility] Varicella 2006-05-10 Completed [facility] (varivax)(chicken 00:00:00 [facility] pox) [facility] HEPATITIS A 2006-05-10 Completed [facility] 00:00:00 [facility] Varicella 2006-05-10 Completed [facility] (varivax)(chicken 00:00:00 [facility] pox[facility] HEPATITIS A 2006-05-10 Completed [facility] 00:00:00 [facility] Varicella 2006-05-10 Completed [facility] (varivax)(chicken 00:00:00 [facility] pox) [facility] HEPATITIS A 2006-05-10 Completed [facility] 00:00:00 [facility] Varicella 2006-05-10 Completed [facility] (varivax)(chicken 00:00:00 [facility] Varicella 2006-05-10 Completed [facility] (varivax)(chicken 00:00:00 [facility] MMR 2005-10-12 Completed [facility] 00:00:00 [facility] Polio (IPV/OPV) 2005-10-12 Completed [facility] 00:00:00 [facility] DTP 2005-10-12 Completed [facility] 00:00:00 [facility] HEPATITIS A 2005-10-12 Completed [facility] of 00:00:00 [facility] MMR 2005-10-12 Completed [facility] 00:00:00 [facility] Polio (IPV/OPV) 2005-10-12 Completed [facility] 00:00:00 [facility] DTP 2005-10-12 Completed [facility] 00:00:00 [facility] HEPATITIS A 2005-10-12 Completed [facility] 00:00:00 [facility] DTP 2005-10-12 Completed [facility] 00:00:00 [facility] HEPATITIS A 2005-10-12 Completed [facility] 00:00:00 [facility] MMR 2005-10-12 Completed [facility] 00:00:00 [facility] Polio (IPV/OPV) 2005-10-12 Completed [facility] 00:00:00 [facility] DTP 2005-10-12 Completed [facility] 00:00:00 [facility] HEPATITIS A 2005-10-12 Completed [facility] 00:00:00 [facility] MMR 2005-10-12 Completed [facility] of 00:00:00 [facility] Polio (IPV/OPV) 2005-10-12 Completed [facility] 00:00:00 [facility] DTP 2005-10-12 Completed [facility] 00:00:00 [facility] HEPATITIS A 2005-10-12 Completed [facility] 00:00:00 [facility] MMR 2005-10-12 Completed [facility] of 00:00:00 [facility] Polio (IPV/OPV) 2005-10-12 Completed [facility] 00:00:00 [facility] DTP 2005-10-12 Completed [facility] 00:00:00 [facility] HEPATITIS A 2005-10-12 Completed [facility] of 00:00:00 [facility] MMR 2005-10-12 Completed [facility] 00:00:00 [facility] Polio (IPV/OPV) 2005-10-12 Completed [facility] 00:00:00 [facility] DTP 2005-10-12 Completed [facility] 00:00:00 [facility] HEPATITIS A 2005-10-12 Completed [facility] 00:00:00 [facility] MMR 2005-10-12 Completed [facility] 00:00:00 [facility] Polio (IPV/OPV) 2005-10-12 Completed [facility] 00:00:00 [facility] DTP 2005-10-12 Completed [facility] 00:00:00 [facility] HEPATITIS A 2005-10-12 Completed [facility] 00:00:00 [facility] MMR 2005-10-12 Completed [facility] 00:00:00 [facility] Polio (IPV/OPV) 2005-10-12 Completed [facility] 00:00:00 [facility] DTP 2005-10-12 Completed [facility] 00:00:00 [facility] HEPATITIS A 2005-10-12 Completed [facility] 00:00:00 [facility] MMR 2005-10-12 Completed [facility] 00:00:00 [facility] Polio (IPV/OPV) 2005-10-12 Completed [facility] 00:00:00 [facility] DTP 2005-10-12 Completed [facility] 00:00:00 [facility] HEPATITIS A 2005-10-12 Completed [facility] 00:00:00 [facility] MMR 2005-10-12 Completed [facility] 00:00:00 [facility] Polio (IPV/OPV) 2005-10-12 Completed [facility] 00:00:00 [facility] DTP 2005-10-12 Completed [facility] 00:00:00 [facility] DTP 2005-10-12 Completed [facility] 00:00:00 [facility] HEPATITIS A 2005-10-12 Completed [facility] of 00:00:00 [facility] MMR 2005-10-12 Completed [facility] 00:00:00 [facility] Polio (IPV/OPV) 2005-10-12 Completed [facility] 00:00:00 [facility] DTP 2005-10-12 Completed [facility] 00:00:00 [facility] HEPATITIS A 2005-10-12 Completed [facility] 00:00:00 [facility] HEPATITIS A 2005-10-12 Completed [facility] 00:00:00 [facility] MMR 2005-10-12 Completed [facility] 00:00:00 [facility] Polio (IPV/OPV) 2005-10-12 Completed [facility] 00:00:00 [facility] DTP 2005-10-12 Completed [facility] 00:00:00 [facility] HEPATITIS A 2005-10-12 Completed [facility] 00:00:00 [facility] MMR 2005-10-12 Completed [facility] 00:00:00 [facility] Polio (IPV/OPV) 2005-10-12 Completed [facility] 00:00:00 [facility] DTP 2005-10-12 Completed [facility] 00:00:00 [facility] HEPATITIS A 2005-10-12 Completed [facility] 00:00:00 [facility] MMR 2005-10-12 Completed [facility] 00:00:00 [facility] MMR 2005-10-12 Completed [facility] 00:00:00 [facility] Polio (IPV/OPV) 2005-10-12 Completed [facility] 00:00:00 [facility] DTP 2005-10-12 Completed [facility] 00:00:00 [facility] HEPATITIS A 2005-10-12 Completed [facility] of 00:00:00 [facility] MMR 2005-10-12 Completed [facility] 00:00:00 [facility] Polio (IPV/OPV) 2005-10-12 Completed [facility] 00:00:00 [facility] Polio (IPV/OPV) 2005-10-12 Completed [facility] 00:00:00 [facility] DTP 2003-10-27 Completed [facility] of 00:00:00 [facility] HIB 4 Dose Schedule 2003-10-27 Completed Unive rsity of 00:00:00 [facility] DTP 2003-10-27 Completed [facility] of 00:00:00 [facility] HIB 4 Dose Schedule 2003-10-27 Completed Unive rsity of 00:00:00 [facility] DTP 2003-10-27 Completed [facility] of 00:00:00 [facility] HIB 4 Dose Schedule 2003-10-27 Completed Unive rsity of 00:00:00 [facility] DTP 2003-10-27 Completed [facility] of 00:00:00 [facility] HIB 4 Dose Schedule 2003-10-27 Completed Unive rsity of 00:00:00 [facility] DTP 2003-10-27 Completed [facility] of 00:00:00 [facility] HIB 4 Dose Schedule 2003-10-27 Completed Unive rsity of 00:00:00 [facility] DTP 2003-10-27 Completed [facility] of 00:00:00 [facility] HIB 4 Dose Schedule 2003-10-27 Completed Unive rsity of 00:00:00 [facility] DTP 2003-10-27 Completed [facility] of 00:00:00 [facility] HIB 4 Dose Schedule 2003-10-27 Completed Unive rsity of 00:00:00 [facility] DTP 2003-10-27 Completed [facility] of 00:00:00 [facility] HIB 4 Dose Schedule 2003-10-27 Completed Unive rsity of 00:00:00 [facility] DTP 2003-10-27 Completed [facility] of 00:00:00 [facility] HIB 4 Dose Schedule 2003-10-27 Completed Unive rsity of 00:00:00 [facility] DTP 2003-10-27 Completed [facility] of 00:00:00 [facility] HIB 4 Dose Schedule 2003-10-27 Completed Unive rsity of 00:00:00 [facility] DTP 2003-10-27 Completed [facility] of 00:00:00 [facility] DTP 2003-10-27 Completed [facility] of 00:00:00 [facility] HIB 4 Dose Schedule 2003-10-27 Completed Unive rsity of 00:00:00 [facility] HIB 4 Dose Schedule 2003-10-27 Completed Unive rsity of 00:00:00 [facility] DTP 2003-10-27 Completed [facility] of 00:00:00 [facility] HIB 4 Dose Schedule 2003-10-27 Completed Unive rsity of 00:00:00 [facility] DTP 2003-10-27 Completed [facility] of 00:00:00 [facility] HIB 4 Dose Schedule 2003-10-27 Completed Unive rsity of 00:00:00 [facility] DTP 2003-10-27 Completed [facility] of 00:00:00 [facility] HIB 4 Dose Schedule 2003-10-27 Completed Unive rsity of 00:00:00 [facility] DTP 2003-10-27 Completed [facility] of 00:00:00 [facility] HIB 4 Dose Schedule 2003-10-27 Completed Unive rsity of 00:00:00 [facility] MMR 2001-10-10 Completed [facility] of 00:00:00 [facility] Polio (IPV/OPV) 2001-10-10 Completed [facility] 00:00:00 [facility] Varicella 2001-10-10 Completed [facility] of (varivax)(chicken 00:00:00 [place] [facility] pox) [facility] Pneumococcal 7 2001-10-10 Completed [facility] of Conjugate, PCV7 00:00:00 [place] [facility] (Prevnar7) [facility] MMR 2001-10-10 Completed [facility] of 00:00:00 [facility] Polio (IPV/OPV) 2001-10-10 Completed [facility] 00:00:00 [facility] Varicella 2001-10-10 Completed [facility] (varivax)(chicken 00:00:00 [facility] pox) [facility] Pneumococcal 7 2001-10-10 Completed [facility] Conjugate, PCV7 00:00:00 [facility] (Prevnar7) [facility] MMR 2001-10-10 Completed [facility] of 00:00:00 [facility] MMR 2001-10-10 Completed [facility] of 00:00:00 [facility] Polio (IPV/OPV) 2001-10-10 Completed [facility] 00:00:00 [facility] Varicella 2001-10-10 Completed [facility] (varivax)(chicken 00:00:00 [facility] pox) [facility] Pneumococcal 7 2001-10-10 Completed [facility] Conjugate, PCV7 00:00:00 [facility] (Prevnar7) [facility] Polio (IPV/OPV) 2001-10-10 Completed [facility] 00:00:00 [facility] MMR 2001-10-10 Completed [facility] of 00:00:00 [facility] Polio (IPV/OPV) 2001-10-10 Completed [facility] 00:00:00 [facility] Varicella 2001-10-10 Completed [facility] (varivax)(chicken 00:00:00 [place] [facility]ox[facility] Pneumococcal 7 2001-10-10 Completed [facility] Conjugate, PCV7 00:00:00 [place] [facility] (Prevnar7) [facility] Varicella 2001-10-10 Completed [facility] (varivax)(chicken 00:00:00 [facility] pox) [facility] Pneumococcal 7 2001-10-10 Completed [facility] Conjugate, PCV7 00:00:00 [place] [facility] (Prevnar7) [facility] Polio (IPV/OPV) 2001-10-10 Completed [facility] 00:00:00 [facility] Varicella 2001-10-10 Completed [facility] (varivax)(chicken 00:00:00 [facility] pox) [facility] Pneumococcal 7 2001-10-10 Completed [facility] of Conjugate, PCV7 00:00:00 [place] [facility] (Prevnar7) [facility] MMR 2001-10-10 Completed [facility] 00:00:00 [facility] Polio (IPV/OPV) 2001-10-10 Completed [facility] 00:00:00 [facility] Varicella 2001-10-10 Completed [facility] (varivax)(chicken 00:00:00 [facility] pox) [facility] MMR 2001-10-10 Completed [facility] 00:00:00 [facility] Polio (IPV/OPV) 2001-10-10 Completed [facility] 00:00:00 [facility] Varicella 2001-10-10 Completed [facility] (varivax)(chicken 00:00:00 [facility] pox) [facility] Pneumococcal 7 2001-10-10 Completed [facility] Conjugate, PCV7 00:00:00 [place] [facility] (Prevnar7) [facility] MMR 2001-10-10 Completed [facility] 00:00:00 [facility] Polio (IPV/OPV) 2001-10-10 Completed [facility] 00:00:00 [facility] Pneumococcal 7 2001-10-10 Completed [facility] Conjugate, PCV7 00:00:00 [place] [facility] (Prevnar7) [facility] Varicella 2001-10-10 Completed [facility] (varivax)(chicken 00:00:00 [facility] edical pox) Branch Pneumococcal 7 2001-10-10 Completed [facility] Conjugate, PCV7 00:00:00 [place] [facility] (Prevnar7) [facility] MMR 2001-10-10 Completed [facility] 00:00:00 [facility] Polio (IPV/OPV) 2001-10-10 Completed [facility]it [facility] 00:00:00 [facility] Varicella 2001-10-10 Completed [facility] (varivax)(chicken 00:00:00 [facility] edical pox) Branch Pneumococcal 7 2001-10-10 Completed [facility] Conjugate, PCV7 00:00:00 [place] [facility] (Prevnar7) [facility] MMR 2001-10-10 Completed [facility] 00:00:00 [facility] Polio (IPV/OPV) 2001-10-10 Completed [facility]it [facility] of 00:00:00 [facility] Varicella 2001-10-10 Completed [facility] (varivax)(chicken 00:00:00 [facility] edical pox) Branch Pneumococcal 7 2001-10-10 Completed [facility] Conjugate, PCV7 00:00:00 [place] [facility] (Prevnar7) [facility] MMR 2001-10-10 Completed [facility] 00:00:00 [facility] MMR 2001-10-10 Completed [facility] of 00:00:00 [facility] Polio (IPV/OPV) 2001-10-10 Completed [facility]it y of 00:00:00 [facility] Varicella 2001-10-10 Completed [facility] (varivax)(chicken 00:00:00 [facility] edical pox) Branch Pneumococcal 7 2001-10-10 Completed [facility] Conjugate, PCV7 00:00:00 [place] [facility] (Prevnar7) [facility] MMR 2001-10-10 Completed [facility] of 00:00:00 [facility] Polio (IPV/OPV) 2001-10-10 Completed [facility]it [facility] 00:00:00 [facility] Varicella 2001-10-10 Completed [facility] (varivax)(chicken 00:00:00 [place] [facility] pox) [facility] Pneumococcal 7 2001-10-10 Completed [facility] Conjugate, PCV7 00:00:00 [place] [facility] (Prevnar7) [facility] MMR 2001-10-10 Completed [facility] 00:00:00 [facility] Polio (IPV/OPV) 2001-10-10 Completed [facility]it [facility] 00:00:00 [facility] Varicella 2001-10-10 Completed [facility] (varivax)(chicken 00:00:00 [place] [facility] pox) [facility] Pneumococcal 7 2001-10-10 Completed [facility] Conjugate, PCV7 00:00:00 [place] [facility] (Prevnar7) [facility] MMR 2001-10-10 Completed [facility] 00:00:00 [facility] Polio (IPV/OPV) 2001-10-10 Completed [facility]it [facility] 00:00:00 [facility] Varicella 2001-10-10 Completed [facility] (varivax)(chicken 00:00:00 [place] [facility] pox) [facility] Pneumococcal 7 2001-10-10 Completed [facility] Conjugate, PCV7 00:00:00 [place] [facility] (Prevnar7) [facility] MMR 2001-10-10 Completed [facility] 00:00:00 [facility] Polio (IPV/OPV) 2001-10-10 Completed [facility]it [facility] of 00:00:00 [facility] Varicella 2001-10-10 Completed [facility] (varivax)(chicken 00:00:00 [place] [facility] pox) [facility] Pneumococcal 7 2001-10-10 Completed [facility] Conjugate, PCV7 00:00:00 [place] [facility] (Prevnar7) Branch Hep B, Adol or Pedi 2001-07-06 Completed Unive rsity of Dosage 00:00:00 [facility] Hep B, Adol or Pedi 2001-07-06 Completed Unive rsity of Dosage 00:00:00 [facility] Hep B, Adol or Pedi 2001-07-06 Completed Unive rsity of Dosage 00:00:00 [facility] Hep B, Adol or Pedi 2001-07-06 Completed Unive rsity of Dosage 00:00:00 [facility] Hep B, Adol or Pedi 2001-07-06 Completed Unive rsity of Dosage 00:00:00 [facility] Hep B, Adol or Pedi 2001-07-06 Completed Unive rsity of Dosage 00:00:00 [facility] Hep B, Adol or Pedi 2001-07-06 Completed Unive rsity of Dosage 00:00:00 [facility] Hep B, Adol or Pedi 2001-07-06 Completed Unive rsity of Dosage 00:00:00 [facility] Hep B, Adol or Pedi 2001-07-06 Completed Unive rsity of Dosage 00:00:00 [facility] Hep B, Adol or Pedi 2001-07-06 Completed Unive rsity of Dosage 00:00:00 [facility] Hep B, Adol or Pedi 2001-07-06 Completed Unive rsity of Dosage 00:00:00 [facility] Hep B, Adol or Pedi 2001-07-06 Completed Unive rsity of Dosage 00:00:00 [facility] Hep B, Adol or Pedi 2001-07-06 Completed Unive rsity of Dosage 00:00:00 [facility] Hep B, Adol or Pedi 2001-07-06 Completed Unive rsity of Dosage 00:00:00 [facility] Hep B, Adol or Pedi 2001-07-06 Completed Unive rsity of Dosage 00:00:00 [facility] Hep B, Adol or Pedi 2001-07-06 Completed Unive rsity of Dosage 00:00:00 [facility] DTP 2001-04-10 Completed University of 00:00:00 [facility] HIB 4 Dose Schedule 2001-04-10 Completed Unive rsity of 00:00:00 [facility] DTP 2001-04-10 Completed [facility] of 00:00:00 [facility] DTP 2001-04-10 Completed University of 00:00:00 [facility] HIB 4 Dose Schedule 2001-04-10 Completed Unive rsity of 00:00:00 [facility] DTP 2001-04-10 Completed [facility] of 00:00:00 [facility] HIB 4 Dose Schedule 2001-04-10 Completed Unive rsity of 00:00:00 [facility] DTP 2001-04-10 Completed [facility] of 00:00:00 [facility] HIB 4 Dose Schedule 2001-04-10 Completed Unive rsity of 00:00:00 [facility] HIB 4 Dose Schedule 2001-04-10 Completed Unive rsity of 00:00:00 [facility] DTP 2001-04-10 Completed [facility] of 00:00:00 [facility] HIB 4 Dose Schedule 2001-04-10 Completed Unive rsity of 00:00:00 [facility] DTP 2001-04-10 Completed [facility] of 00:00:00 [facility] HIB 4 Dose Schedule 2001-04-10 Completed Unive rsity of 00:00:00 [facility] DTP 2001-04-10 Completed [facility] of 00:00:00 [facility] HIB 4 Dose Schedule 2001-04-10 Completed Unive rsity of 00:00:00 [facility] DTP 2001-04-10 Completed [facility] of 00:00:00 [facility] HIB 4 Dose Schedule 2001-04-10 Completed Unive rsity of 00:00:00 [facility] DTP 2001-04-10 Completed University of 00:00:00 [facility] HIB 4 Dose Schedule 2001-04-10 Completed Unive rsity of 00:00:00 [facility] DTP 2001-04-10 Completed [facility] of 00:00:00 [facility] DTP 2001-04-10 Completed [facility] of 00:00:00 [facility] HIB 4 Dose Schedule 2001-04-10 Completed Unive rsity of 00:00:00 [facility] HIB 4 Dose Schedule 2001-04-10 Completed Unive rsity of 00:00:00 [facility] DTP 2001-04-10 Completed [facility] of 00:00:00 [facility] HIB 4 Dose Schedule 2001-04-10 Completed Unive rsity of 00:00:00 [facility] DTP 2001-04-10 Completed [facility] of 00:00:00 [facility] HIB 4 Dose Schedule 2001-04-10 Completed Unive rsity of 00:00:00 [facility] DTP 2001-04-10 Completed [facility] of 00:00:00 [facility] HIB 4 Dose Schedule 2001-04-10 Completed Unive rsity of 00:00:00 [facility] DTP 2001-04-10 Completed [facility] of 00:00:00 [facility] HIB 4 Dose Schedule 2001-04-10 Completed Unive rsity of 00:00:00 [facility] Polio (IPV/OPV) 2001-02-12 Completed Universit y of 00:00:00 [facility] DTP 2001-02-12 Completed [facility] 00:00:00 [facility] DTP 2001-02-12 Completed [facility] of 00:00:00 [facility] HIB 4 Dose Schedule 2001-02-12 Completed Unive rsity of 00:00:00 [facility] Polio (IPV/OPV) 2001-02-12 Completed Universit y of 00:00:00 [facility] DTP 2001-02-12 Completed [facility] of 00:00:00 [facility] HIB 4 Dose Schedule 2001-02-12 Completed Unive rsity of 00:00:00 [facility] Polio (IPV/OPV) 2001-02-12 Completed Universit y of 00:00:00 [facility] DTP 2001-02-12 Completed [facility] of 00:00:00 [facility] HIB 4 Dose Schedule 2001-02-12 Completed Unive rsity of 00:00:00 [facility] HIB 4 Dose Schedule 2001-02-12 Completed Unive rsity of 00:00:00 [facility] Polio (IPV/OPV) 2001-02-12 Completed Universit y of 00:00:00 [facility] DTP 2001-02-12 Completed [facility] of 00:00:00 [facility] HIB 4 Dose Schedule 2001-02-12 Completed Unive rsity of 00:00:00 [facility] Polio (IPV/OPV) 2001-02-12 Completed Universit y of 00:00:00 [facility] DTP 2001-02-12 Completed [facility] of 00:00:00 [facility] HIB 4 Dose Schedule 2001-02-12 Completed Unive rsity of 00:00:00 [facility] Polio (IPV/OPV) 2001-02-12 Completed Universit y of 00:00:00 [facility] DTP 2001-02-12 Completed [facility] of 00:00:00 [facility] HIB 4 Dose Schedule 2001-02-12 Completed Unive rsity of 00:00:00 [facility] Polio (IPV/OPV) 2001-02-12 Completed Universit y of 00:00:00 [facility] Polio (IPV/OPV) 2001-02-12 Completed [facility]it y of 00:00:00 [facility] DTP 2001-02-12 Completed [facility] of 00:00:00 [facility] HIB 4 Dose Schedule 2001-02-12 Completed Unive rsity of 00:00:00 [facility] Polio (IPV/OPV) 2001-02-12 Completed [facility]it y of 00:00:00 [facility] DTP 2001-02-12 Completed [facility] 00:00:00 [facility] DTP 2001-02-12 Completed [facility] of 00:00:00 [facility] HIB 4 Dose Schedule 2001-02-12 Completed Unive rsity of 00:00:00 [facility] Polio (IPV/OPV) 2001-02-12 Completed [facility]it y of 00:00:00 [facility] DTP 2001-02-12 Completed [facility] of 00:00:00 [facility] HIB 4 Dose Schedule 2001-02-12 Completed Unive rsity of 00:00:00 [facility] HIB 4 Dose Schedule 2001-02-12 Completed Unive rsity of 00:00:00 [facility] DTP 2001-02-12 Completed [facility] of 00:00:00 [facility] Polio (IPV/OPV) 2001-02-12 Completed [facility]it y of 00:00:00 [facility] DTP 2001-02-12 Completed [facility] of 00:00:00 [facility] HIB 4 Dose Schedule 2001-02-12 Completed Unive rsity of 00:00:00 [facility] Polio (IPV/OPV) 2001-02-12 Completed [facility]it y of 00:00:00 [facility] DTP 2001-02-12 Completed [facility] of 00:00:00 [facility] HIB 4 Dose Schedule 2001-02-12 Completed Unive rsity of 00:00:00 [facility] Polio (IPV/OPV) 2001-02-12 Completed [facility]it y of 00:00:00 [facility] DTP 2001-02-12 Completed [facility] of 00:00:00 [facility] HIB 4 Dose Schedule 2001-02-12 Completed Unive rsity of 00:00:00 [facility] Polio (IPV/OPV) 2001-02-12 Completed [facility]it y of 00:00:00 [facility] HIB 4 Dose Schedule 2001-02-12 Completed Unive rsity of 00:00:00 [facility] DTP 2001-02-12 Completed [facility] of 00:00:00 [facility] Polio (IPV/OPV) 2001-02-12 Completed [facility]it y of 00:00:00 [facility] HIB 4 Dose Schedule 2001-02-12 Completed Unive rsity of 00:00:00 [facility] Polio (IPV/OPV) 2001-02-12 Completed [facility]it y of 00:00:00 [facility] DTP 2000 Completed [facility] of 00:00:00 [facility] HIB 4 Dose Schedule 2000 Completed Unive rsity of 00:00:00 [facility] Hep B, Adol or Pedi 2000 Completed Unive rsity of Dosage 00:00:00 [facility] Polio (IPV/OPV) 2000 Completed [facility] of 00:00:00 [facility] Pneumococcal 7 2000 Completed [facility] of Conjugate, PCV7 00:00:00 [place] [facility] (Prevnar7) [facility] DTP 2000 Completed [facility] 00:00:00 [facility] Polio (IPV/OPV) 2000 Completed [facility] of 00:00:00 [facility] HIB 4 Dose Schedule 2000 Completed Unive rsity of 00:00:00 [facility] Hep B, Adol or Pedi 2000 Completed Unive rsity of Dosage 00:00:00 [facility] Polio (IPV/OPV) 2000 Completed [facility] of 00:00:00 [facility] Pneumococcal 7 2000 Completed [facility] Conjugate, PCV7 00:00:00 [place] [facility] (Prevnar7) [facility] DTP 2000 Completed [facility] 00:00:00 [facility] HIB 4 Dose Schedule 2000 Completed Unive rsity of 00:00:00 [facility] Hep B, Adol or Pedi 2000 Completed Unive rsity of Dosage 00:00:00 [facility] Polio (IPV/OPV) 2000 Completed [facility] of 00:00:00 [facility] Pneumococcal 7 2000 Completed [facility] Conjugate, PCV7 00:00:00 [place] [facility] (Prevnar7) [facility] DTP 2000 Completed [facility] 00:00:00 [facility] Pneumococcal 7 2000 Completed [facility] Conjugate, PCV7 00:00:00 [place] [facility] (Prevnar7) [facility] HIB 4 Dose Schedule 2000 Completed Unive rsity of 00:00:00 [facility] Hep B, Adol or Pedi 2000 Completed Unive rsity of Dosage 00:00:00 [facility] Polio (IPV/OPV) 2000 Completed [facility] of 00:00:00 [facility] Pneumococcal 7 2000 Completed [facility] Conjugate, PCV7 00:00:00 [place] [facility] (Prevnar7) [facility] DTP 2000 Completed [facility] 00:00:00 [facility] HIB 4 Dose Schedule 2000 Completed Unive rsity of 00:00:00 [facility] Hep B, Adol or Pedi 2000 Completed Unive rsity of Dosage 00:00:00 [facility] Polio (IPV/OPV) 2000 Completed [facility] 00:00:00 [facility] Pneumococcal 7 2000 Completed [facility] Conjugate, PCV7 00:00:00 [place] [facility] (Prevnar7) [facility] DTP 2000 Completed [facility] 00:00:00 [facility] DTP 2000 Completed [facility] 00:00:00 [facility] HIB 4 Dose Schedule 2000 Completed Unive rsity of 00:00:00 [facility] Hep B, Adol or Pedi 2000 Completed Unive rsity of Dosage 00:00:00 [facility] Polio (IPV/OPV) 2000 Completed [facility] of 00:00:00 [facility] Pneumococcal 7 2000 Completed [facility] Conjugate, PCV7 00:00:00 [place] [facility] (Prevnar7) [facility] DTP 2000 Completed [facility] 00:00:00 [facility] HIB 4 Dose Schedule 2000 Completed Unive rsity of 00:00:00 [facility] Hep B, Adol or Pedi 2000 Completed Unive rsity of Dosage 00:00:00 [facility] Polio (IPV/OPV) 2000 Completed [facility] 00:00:00 [facility] Pneumococcal 7 2000 Completed [facility] Conjugate, PCV7 00:00:00 [place] [facility] (Prevnar7) [facility] DTP 2000 Completed [facility] 00:00:00 [facility] HIB 4 Dose Schedule 2000 Completed Unive rsity of 00:00:00 [facility] DTP 2000 Completed [facility] 00:00:00 [facility] HIB 4 Dose Schedule 2000 Completed Unive rsity of 00:00:00 [facility] Hep B, Adol or Pedi 2000 Completed Unive rsity of Dosage 00:00:00 [facility] Polio (IPV/OPV) 2000 Completed [facility] 00:00:00 [facility] Pneumococcal 7 2000 Completed [facility] Conjugate, PCV7 00:00:00 [place] [facility] (Prevnar7) [facility] DT 2000 Completed [facility] 00:00:00 [facility] HIB 4 Dose Schedule 2000 Completed Unive rsity of 00:00:00 [facility] HIB 4 Dose Schedule 2000 Completed Unive rsity of 00:00:00 [facility] Hep B, Adol or Pedi 2000 Completed Unive rsity of Dosage 00:00:00 [facility] Polio (IPV/OPV) 2000 Completed [facility] 00:00:00 [facility] Hep B, Adol or Pedi 2000 Completed Unive rsity of Dosage 00:00:00 [facility] Pneumococcal 7 2000 Completed [facility] of Conjugate, PCV7 00:00:00 [place] [facility] (Prevnar7) [facility] DTP 2000 Completed [facility] 00:00:00 [facility] HIB 4 Dose Schedule 2000 Completed Unive rsity of 00:00:00 [facility] Hep B, Adol or Pedi 2000 Completed Unive rsity of Dosage 00:00:00 [facility] Polio (IPV/OPV) 2000 Completed [facility] 00:00:00 [facility] Pneumococcal 7 2000 Completed [facility] Conjugate, PCV7 00:00:00 [place] [facility] (Prevnar7) [facility] Hep B, Adol or Pedi 2000 Completed Unive rsity of Dosage 00:00:00 [facility] DTP 2000 Completed [facility] 00:00:00 [facility] HIB 4 Dose Schedule 2000 Completed Unive rsity of 00:00:00 [facility] Hep B, Adol or Pedi 2000 Completed Unive rsity of Dosage 00:00:00 [facility] Polio (IPV/OPV) 2000 Completed [facility] 00:00:00 [facility] Polio (IPV/OPV) 2000 Completed [facility] 00:00:00 [facility] Pneumococcal 7 2000 Completed [facility] of Conjugate, PCV7 00:00:00 [place] [facility] (Prevnar7) [facility] DTP 2000 Completed [facility] 00:00:00 [facility] HIB 4 Dose Schedule 2000 Completed Unive rsity of 00:00:00 [facility] Hep B, Adol or Pedi 2000 Completed Unive rsity of Dosage 00:00:00 [facility] Polio (IPV/OPV) 2000 Completed [facility] 00:00:00 [facility] Polio (IPV/OPV) 2000 Completed [facility] 00:00:00 [facility] Pneumococcal 7 2000 Completed [facility] of Conjugate, PCV7 00:00:00 [place] [facility] (Prevnar7) [facility] DTP 2000 Completed [facility] 00:00:00 [facility] HIB 4 Dose Schedule 2000 Completed Unive rsity of 00:00:00 [facility] Pneumococcal 7 2000 Completed [facility] Conjugate, PCV7 00:00:00 [place] [facility] (Prevnar7) [facility] Hep B, Adol or Pedi 2000 Completed Unive rsity of Dosage 00:00:00 [facility] Polio (IPV/OPV) 2000 Completed [facility] 00:00:00 [facility] Pneumococcal 7 2000 Completed [facility] Conjugate, PCV7 00:00:00 [place] [facility] (Prevnar7) [facility] Pneumococcal 7 2000 Completed [facility] of Conjugate, PCV7 00:00:00 [place] [facility] (Prevnar7) [facility] DTP 2000 Completed [facility] 00:00:00 [facility] HIB 4 Dose Schedule 2000 Completed Unive rsity of 00:00:00 [facility] Hep B, Adol or Pedi 2000 Completed Unive rsity of Dosage 00:00:00 [facility] Hep B, Adol or Pedi 2000 Completed Unive rsity of Dosage 00:00:00 [facility] Hep B, Adol or Pedi 2000 Completed Unive rsity of Dosage 00:00:00 [facility] Hep B, Adol or Pedi 2000 Completed Unive rsity of Dosage 00:00:00 [facility] Hep B, Adol or Pedi 2000 Completed Unive rsity of Dosage 00:00:00 [facility] Hep B, Adol or Pedi 2000 Completed Unive rsity of Dosage 00:00:00 [facility] Hep B, Adol or Pedi 2000 Completed Unive rsity of Dosage 00:00:00 [facility] Hep B, Adol or Pedi 2000 Completed Unive rsity of Dosage 00:00:00 [facility] Hep B, Adol or Pedi 2000 Completed Unive rsity of Dosage 00:00:00 [facility] Hep B, Adol or Pedi 2000 Completed [facility] rsity of Dosage 00:00:00 [facility] Hep B, Adol or Pedi 2000 Completed [facility]ive rsity of Dosage 00:00:00 [facility] Hep B, Adol or Pedi 2000 Completed Unive rsity of Dosage 00:00:00 [facility] Hep B, Adol or Pedi 2000 Completed Unive rsity of Dosage 00:00:00 [facility] Hep B, Adol or Pedi 2000 Completed Unive rsity of Dosage 00:00:00 [facility] Hep B, Adol or Pedi 2000 Completed [facility]ive rsity of Dosage 00:00:00 [facility] Hep B, Adol or Pedi 2000 Completed [facility]ive rsity of Dosage 00:00:00 [facility] Hep B, Adol or Pedi 2000 Completed Unive rsity of Dosage 00:00:00 [facility] Vital Signs Vital Name Observation Time Observation Value Comments Source Systolic blood 2020-11-27 18:18:00 115 mm[Hg] [facility] Diastolic blood 2020-11-27 18:18:00 73 mm[Hg] [facility] Heart rate 2020-11-27 18:18:00 88 /min [facility] Body temperature 2020-11-27 18:18:00 37 Li [facility] Respiratory rate 2020-11-27 18:18:00 18 /min [facility] Body height 2020-11-27 18:18:00 162.6 cm [facility] Body weight 2020-11-27 18:18:00 67.541 kg [facility] BMI 2020-11-27 18:18:00 25.56 kg/m2 [facility] Systolic blood 2020-08-27 19:52:00 135 mm[Hg] [facility] pressure [facility] Diastolic blood 2020-08-27 19:52:00 85 mm[Hg] [facility] of pressure [facility] Heart rate 2020-08-27 19:52:00 88 /min [facility] Body temperature 2020-08-27 19:52:00 36.94 Li [facility] Respiratory rate 2020-08-27 19:52:00 16 /min [facility] Body height 2020-08-27 19:52:00 162.6 cm [facility] Body weight 2020-08-27 19:52:00 65.409 kg [facility] BMI 2020-08-27 19:52:00 24.75 kg/m2 [facility] Systolic blood 2020-07-16 20:47:00 130 mm[Hg] [facility] Diastolic blood 2020-07-16 20:47:00 80 mm[Hg] [facility] of pressure [facility] Heart rate 2020-07-16 20:47:00 95 /min [facility] Body temperature 2020-07-16 20:47:00 37 Li [facility] Respiratory rate 2020-07-16 20:47:00 16 /min [facility] of [facility] Body height 2020-07-16 20:47:00 167.6 cm [facility] Body weight 2020-07-16 20:47:00 63.73 kg [facility] BMI 2020-07-16 20:47:00 22.68 kg/m2 [facility] Systolic blood 2020-07-16 20:47:00 130 mm[Hg] [facility] of pressure [facility] Diastolic blood 2020-07-16 20:47:00 80 mm[Hg] [facility] of pressure [facility] Heart rate 2020-07-16 20:47:00 95 /min [facility] Body temperature 2020-07-16 20:47:00 37 Li [facility] Respiratory rate 2020-07-16 20:47:00 16 /min [facility] Body height 2020-07-16 20:47:00 167.6 cm [facility] Body weight 2020-07-16 20:47:00 63.73 kg [facility] BMI 2020-07-16 20:47:00 22.68 kg/m2 [facility] Systolic blood 2020-07-16 20:47:00 130 mm[Hg] [facility] of pressure [facility] Diastolic blood 2020-07-16 20:47:00 80 mm[Hg] [facility] of pressure [facility] Heart rate 2020-07-16 20:47:00 95 /min [facility] Body temperature 2020-07-16 20:47:00 37 Li [facility] Respiratory rate 2020-07-16 20:47:00 16 /min [facility] Body height 2020-07-16 20:47:00 167.6 cm [facility] Body weight 2020-07-16 20:47:00 63.73 kg [facility] BMI 2020-07-16 20:47:00 22.68 kg/m2 [facility] Systolic blood 2020-07-16 20:47:00 130 mm[Hg] [facility] pressure [facility] Diastolic blood 2020-07-16 20:47:00 80 mm[Hg] [facility] pressure [facility] Heart rate 2020-07-16 20:47:00 95 /min [facility] Body temperature 2020-07-16 20:47:00 37 Li [facility] Respiratory rate 2020-07-16 20:47:00 16 /min [facility] Body height 2020-07-16 20:47:00 167.6 cm [facility] Body weight 2020-07-16 20:47:00 63.73 kg [facility] BMI 2020-07-16 20:47:00 22.68 kg/m2 [facility] Systolic blood 2020-05-29 15:26:00 131 mm[Hg] Univer [facility]ity [facility] Diastolic blood 2020-05-29 15:26:00 85 mm[Hg] Unive rsity of pressure [facility] Heart rate 2020-05-29 15:26:00 82 /min [facility] Body temperature 2020-05-29 15:26:00 36.67 Li Univ [facility] Respiratory rate 2020-05-29 15:26:00 16 /min Univ [facility] [place] [facility] Body height 2020-05-29 15:26:00 167.6 cm [facility] Body weight 2020-05-29 15:26:00 62.71 kg [facility] BMI 2020-05-29 15:26:00 22.31 kg/m2 [facility] Systolic blood 2020-05-15 15:45:00 122 mm[Hg] [facility] Diastolic blood 2020-05-15 15:45:00 83 mm[Hg] Unive rsity of pressure [facility] Heart rate 2020-05-15 15:45:00 109 /min [facility] Body temperature 2020-05-15 15:45:00 37.11 Li [facility] Respiratory rate 2020-05-15 15:45:00 16 /min [facility] Body height 2020-05-15 15:45:00 167.6 cm [facility] [place] [facility] Body weight 2020-05-15 15:45:00 63.56 kg [facility] [place] [facility] BMI 2020-05-15 15:45:00 22.62 kg/m2 [facility] Systolic blood 2020-03-31 01:52:00 127 mm[Hg] Univer [facility]ity of pressure [facility] Diastolic blood 2020-03-31 01:52:00 84 mm[Hg] Unive rsity of pressure [facility] Heart rate 2020-03-31 01:52:00 84 /min [facility] Body temperature 2020-03-31 01:52:00 36.94 Li [facility] Respiratory rate 2020-03-31 01:52:00 16 /min [facility] Body height 2020-03-31 01:52:00 167.6 cm [facility] Body weight 2020-03-31 01:52:00 65.772 kg [facility] BMI 2020-03-31 01:52:00 23.40 kg/m2 [facility] Oxygen saturation in 2020-03-31 01:52:00 100 /min University of Arterial blood by [facility] Pulse oximetry Branch Systolic blood 2020-01-26 04:02:00 120 mm[Hg] Univer [facility]ity of pressure [facility] Diastolic blood 2020-01-26 04:02:00 81 mm[Hg] Unive rsity of pressure [facility] Heart rate 2020-01-26 04:02:00 88 /min [facility] Respiratory rate 2020-01-26 04:02:00 16 /min Univ [facility] Oxygen saturation in 2020-01-26 04:02:00 99 /min University of Arterial blood by [facility] Pulse oximetry Branch Body temperature 2020-01-26 01:49:00 36.72 Li [facility] Body height 2020-01-26 01:49:00 167.6 cm [facility] Body weight 2020-01-26 01:49:00 65.772 kg [facility] BMI 2020-01-26 01:49:00 23.40 kg/m2 [facility] Systolic blood 2020-01-15 16:27:00 126 mm[Hg] Univer [facility]ity of pressure [facility] Diastolic blood 2020-01-15 16:27:00 76 mm[Hg] Unive rsity of pressure [facility] Heart rate 2020-01-15 16:27:00 74 /min [facility] Body temperature 2020-01-15 16:27:00 36.22 Li [facility] Respiratory rate 2020-01-15 16:27:00 16 /min [facility] Body height 2020-01-15 16:27:00 165.1 cm [facility] Body weight 2020-01-15 16:27:00 67.586 kg [facility] [place] [facility] BMI 2020-01-15 16:27:00 24.79 kg/m2 [facility] [place] [facility] Systolic blood 2019-12-18 15:29:00 127 mm[Hg] Univer [facility]ity of pressure [facility] Diastolic blood 2019-12-18 15:29:00 70 mm[Hg] Unive rsity of pressure [facility] Heart rate 2019-12-18 15:29:00 66 /min [facility] Body temperature 2019-12-18 15:29:00 36.33 Li [facility] [place] [facility] Respiratory rate 2019-12-18 15:29:00 16 /min [facility] Body height 2019-12-18 15:29:00 165.1 cm [facility] Body weight 2019-12-18 15:29:00 64.949 kg [facility] [place] [facility] BMI 2019-12-18 15:29:00 23.83 kg/m2 [facility] [place] [facility] Systolic blood 2019-11-08 15:20:00 125 mm[Hg] Univer [facility]ity of pressure [facility] Diastolic blood 2019-11-08 15:20:00 83 mm[Hg] Unive rsity of pressure [facility] Heart rate 2019-11-08 15:20:00 71 /min [facility] Body temperature 2019-11-08 15:20:00 36.67 Li [facility] Respiratory rate 2019-11-08 15:20:00 16 /min [facility] Body height 2019-11-08 15:20:00 165.1 cm Universi ty of [facility] Body weight 2019-11-08 15:20:00 65.97 kg Universi ty of [facility] BMI 2019-11-08 15:20:00 24.20 kg/m2 Universi ty of [facility] Systolic blood 2019-08-27 17:25:47 118 mm[Hg] Univer sity of pressure [facility] Diastolic blood 2019-08-27 17:25:47 77 mm[Hg] Unive rsity of pressure [facility] Body temperature 2019-08-27 17:25:47 37.17 Li [facility] Respiratory rate 2019-08-27 17:25:47 16 /min [facility] Heart rate 2019-08-27 17:15:00 83 /min Universi ty of [facility] Body height 2019-08-27 17:15:00 165.1 cm Universi ty of [facility] Body weight 2019-08-27 17:15:00 63.504 kg [facility]i ty [facility] BMI 2019-08-27 17:15:00 23.30 kg/m2 Universi ty [facility] Oxygen saturation in 2019-08-27 17:15:00 98 /min [facility] Arterial blood by [facility] Pulse oximetry Branch Procedures Procedure Date / Time Performed Performing Clinician [facility] e ASSIGNMENT OF BENEFITS 2020-11-27 18:03:19 Doctor Unassigned, No [facility] CLINIC RECORD / SMR 2020-09-21 05:01:00 [facility]igned, [facility] 2020-05-29 15:27:00 [facility] 2020-05-15 15:50:00 Kamilah Flynn [facility] ASSIGNMENT OF BENEFITS 2020-05-15 15:29:12 Doctor Unassigned, No [facility] CONSENT/REFUSAL FOR 2020-03-31 01:43:32 Doctor Unassigned, No Un [facility] [place] DIAGNOSIS AND [facility] TREATMENT BASIC METABOLIC PANEL 2020-01-26 02:58:00 Cathryn Moss [facility] (NA, K, CL, CO2, Medical Branch GLUCOSE, BUN, CREATININE, CA) TOTAL BETA HCG ASSAY 2020-01-26 02:58:00 Cathryn Moss [facility] URINALYSIS 2020-01-26 02:58:00 Cathryn Moss [facility] HB ABO GROUPING 2020-01-26 02:09:00 Cathryn Moss [facility] CBC WITH DIFF 2020-01-26 02:08:00 [facility] 2020-01-17 18:01:00 Aileen Ortiz [facility] ULTRASOUND [facility] Branch POCT URINALYSIS 2020-01-15 16:29:00 Aileen Ortiz [facility] FLU VACC ([id number]), 2019-12-18 16:05:36 Aileen Ortiz U [facility] 6+ MONTHS, IM, QUAD Medical Bran ch POCT URINALYSIS W/O 2019-12-18 15:20:00 Aileen Ortiz Uni [facility] [place] SPECIFIC GRAVITY [facility] POCT TEST 2019-12-18 15:19:00 Aileen Ortiz Uni [facility] REPORT OF 2019-12-18 05:01:00 Doctor Unassigned, No [facility] POCT TEST 2019-11-08 15:23:00 Erica Patel [facility] ASSIGNMENT OF BENEFITS 2019-11-08 15:08:04 Doctor Unassigned, No [facility] NOTICE OF PRIVACY 2019-08-27 16:47:13 Doctor Unassigned, No [facility] CONSENT/REFUSAL FOR 2019-08-27 16:46:57 Doctor Unassigned, No [facility] AND [facility] TREATMENT Plan of Care Planned Activity Planned Date Details Comments Source Future Scheduled 2022-12-25 DTaP,Tdap,and Td Univers ity of Test 00:00:00 Vaccines (7 - Td) [facility] [code = Branch DTaP,Tdap,and Td Vaccines (7 - Td)] Future Scheduled 2022-12-25 DTaP,Tdap,and Td Univers ity of Test 00:00:00 Vaccines (7 - Td) [facility] [code = Branch DTaP,Tdap,and Td Vaccines (7 - Td)] Future Scheduled 2020-12-17 Screening for University of Test 00:00:00 Chlamydia [place] [facility] trachomatis Branch (procedure) [code = 719808078] Future Scheduled 2020-12-17 Screening for University of Test 00:00:00 Chlamydia [place] [facility] trachomatis Branch (procedure) [code = 714800440] Future Scheduled 2020-11-07 Depression screening Uni versity of Test 00:00:00 (procedure) [code = [facility] dical 976631385] Branch Future Scheduled 2020-11-07 MENINGOCOCCAL B Postponed from Univer sity of Test 00:00:00 VACCINES (1 of 2 - 2010 [place] [facility] Risk Bexsero 2-dose (Alternative Branch series) [code = Guidelines) MENINGOCOCCAL B VACCINES (1 of 2 - Risk Bexsero 2-dose series)] Future Scheduled 2020-11-07 Well child visit Univers ity of Test 00:00:00 (procedure) [code = [facility] dical 412613989] Branch Future Scheduled 2020-11-07 Depression screening Uni versity of Test 00:00:00 (procedure) [code = [facility] dical 511654734] Branch Future Scheduled 2020-11-07 MENINGOCOCCAL B Postponed from Univer sity of Test 00:00:00 VACCINES (1 of 2 - 2010 [place] [facility] Risk Bexsero 2-dose (Alternative Branch series) [code = Guidelines) MENINGOCOCCAL B VACCINES (1 of 2 - Risk Bexsero 2-dose series)] Future Scheduled 2020-11-07 Well child visit Univers ity of Test 00:00:00 (procedure) [code = [facility] dical 346481391] Branch Future Scheduled 2018 Hepatitis C University of Test 00:00:00 screening [place] [facility] (procedure) [code = Branch 882432149] Future Scheduled 2018 Hepatitis C University of Test 00:00:00 screening [place] [facility] (procedure) [code = Branch 413451203] Future Scheduled 2016 SARS-CoV-2 University of Test 00:00:00 (COVID-19) Vaccine [place] [facility] (1) [code = Branch SARS-CoV-2 (COVID-19) Vaccine (1)] Future Scheduled 2016 SARS-CoV-2 University of Test 00:00:00 (COVID-19) Vaccine [place] [facility] (1) [code = Branch SARS-CoV-2 (COVID-19) Vaccine (1)] Future Scheduled 2006 PNEUMOCOCCAL 0-64 Univer sity of Test 00:00:00 YEARS COMBINED [place] [facility] SERIES (1 of 1 - Branch PPSV23) [code = PNEUMOCOCCAL 0-64 YEARS COMBINED SERIES (1 of 1 - PPSV23)] Future Scheduled 2006 PNEUMOCOCCAL 0-64 Univer sity of Test 00:00:00 YEARS COMBINED [place] [facility] SERIES (1 of 1 - Branch PPSV23) [code = PNEUMOCOCCAL 0-64 YEARS COMBINED SERIES (1 of 1 - PPSV23)] Future Scheduled HIV 1/2 AG-AB WITH Unive rsity of Test REFLEX [code = [place] [employer] 05512-8] Branch Future Scheduled GALV ONLY - [place] Uni versity of Test IGG/IGM [code = [employer] ISH 68300-9] Branch Future Scheduled TRICHOMONAS University of Test AMPLIFIED ASSAY [place] [facility] [code = 38245-3] Branch Future Scheduled HSV 1 AND 2 University of Test GLYCOPROTEIN G IGG [place] [facility] ical [code = [id number]] Branch Future Scheduled HIV 1/2 AG-AB WITH Unive rsity of Test REFLEX [code = [employer] 31854-8] Branch Future Scheduled GALV ONLY - [place] Uni versity of Test IGG/IGM [code = [employer] ISH 02441-5] Branch Future Scheduled TRICHOMONAS University of Test AMPLIFIED ASSAY [place] [facility] [code = 81118-9] Branch Future Scheduled HSV 1 AND 2 University of Test GLYCOPROTEIN G IGG [place] [facility] ical [code = [id number]] Branch Encounters Start End Encounter Admission Attending Care Care Encounter Source Date/Time Date/Time Type Type Clinicians Facility Department ID 2021-01-09 Emergency [facility] [id number] Univers 17:52:48 ity of [facility] 2021-01-09 Emergency [facility] [id number] Univers 05:35:18 ity of [facility] 2021-02-19 2021-02-19 Outpatient R [facility] [id number] Univers 13:00:00 13:00:00 [id number] ity [facility] 2020-11-27 2020-11-27 Nurse Visit, Kervin Nurse [facility] 1.2 .840.114 [id number] Univers 13:04:57 13:19:13 Visit Aileen Ortiz 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 [address] [facility] [id number] Brian as MATERNAL [phone] [facility] ical & CHILD [address] [place] [address] 2020-11-27 2020-11-27 Outpatient R [facility] [id number] Univers 13:00:00 13:00:00 [id number] ity [facility] 2020-11-27 2020-11-27 [facility] [id number] Univers 13:00:00 13:00:00 AILEEN cox o f [facility] 2020-11-27 2020-11-27 Orders Doctor NOLAN 1.2.840.114 [id number] Univers 00:00:00 00:00:00 Only Unassigned, BRIE [id number] ity of [place] [place] [facility] [id number] Brian as [phone] [address] 2020-11-19 2020-11-19 Outpatient R [facility] [id number] Univers 16:00:00 16:00:00 [id number] ity [facility] 2020-11-19 2020-11-19 Outpatient R [facility] [id number] Univers 16:00:00 16:00:00 ity [facility] 2020-09-21 2020-09-21 Orders Doctor AN 1.2.840.114 [id number] Univers 00:00:00 00:00:00 Only Unassigned, BRIE 350.1.13.10 ity of [place] [place] [facility] [id number] Brian as [phone] [address] 2020-08-27 2020-08-27 Nurse Visit, Kervin Nurse [facility] 1.2 .840.114 [id number] Univers 14:40:13 15:04:54 Visit Aileen Ortiz 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 10 ity of REGIONAL [id number] Brian as MATERNAL [phone] [facility] ical & CHILD [address] [place] [address] 2020-08-27 2020-08-27 Outpatient R [facility] [id number] Univers 14:30:00 14:30:00 [id number] ity [facility] 2020-08-27 2020-08-27 Outpatient R [facility] [id number] Univers 14:30:00 14:30:00 ity [facility] 2020-08-21 2020-08-21 Outpatient R [facility] [id number] Univers 10:30:00 10:30:00 [id number] ity [facility] 2020-08-21 2020-08-21 Outpatient R [facility] [id number] Univers 10:30:00 10:30:00 ity [facility] 2020-08-06 2020-08-06 Outpatient R [facility] [id number] Univers 13:00:00 13:00:00 [id number] ity [facility] 2020-08-06 2020-08-06 Outpatient R [facility] [id number] Univers 13:00:00 13:00:00 ity [facility] 2020-07-17 2020-07-17 Telephone [facility] 1.2.840.114 [id number] Univers 00:00:00 00:00:00 Erica Grimaldo 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10 it y of REGIONAL [id number] Brian as MATERNAL [phone] [facility] & CHILD [address] [place] [address] 2020-07-16 2020-07-16 Office [facility] [id number] [id number] Univers 15:24:15 16:11:00 Visit Erica Grimaldo 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10 it y of REGIONAL [id number] Brian as MATERNAL [phone] [facility] ical & CHILD [address] [place] [address] 2020-07-16 2020-07-16 [facility] [id number] Univers 15:30:00 15:30:00 ERICA [id number] ity [facility] 2020-07-16 2020-07-16 Outpatient R JORGE [facility] [id number] Univers 15:30:00 15:30:00 ERICA ity [facility] 2020-06-02 2020-06-02 Patient Jonathan [facility] 1.2.840.114 [id number] Univers 00:00:00 00:00:00 [facility] 350.1.13.10 i ty of [facility] 4.2.7.2.686 [place] [phone] [address] 2020-05-29 2020-05-29 [facility] 1.2 .840.114 [id number] Univers 10:03:17 10:52:07 Visit Aileen Ortiz 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 [address] [facility] [id number] Brian as MATERNAL [phone] [facility] ical & CHILD [address] [place] [address] 2020-05-29 2020-05-29 Outpatient R [facility] [id number] Univers 10:00:00 10:00:00 [id number] ity [facility] 2020-05-29 2020-05-29 Outpatient R [facility] [id number] Univers 10:00:00 10:00:00 ity [facility] 2020-05-15 2020-05-15 Office Rina [facility] 1.2.840.114 [id number] Univers 09:36:38 10:44:46 Visit Kamilah Olivarez 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[address] [facility] [id number] Brian as MATERNAL [phone] [facility] & CHILD [address] [place] [address] 2020-05-15 2020-05-15 Outpatient RINA [facility] [id number] Univers 09:00:00 09:00:00 KAMILAH [id number] ity o f [facility] 2020-05-15 2020-05-15 [facility] [id number] Univers 09:00:00 09:00:00 KAMILAH jeannay o f [facility] 2020-05-15 2020-05-15 Orders Doctor AN 1.2.840.114 [id number] Univers 00:00:00 00:00:00 Only Unassigned, BRIE 350.1.13.10 ity of [place] [facility] [id number] Brian as [phone] [address] 2020-04-06 2020-04-06 Telephone [facility], [facility] 1.2.840.114 [id number] Univers 00:00:00 00:00:00 Alieen Gee 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[address] [facility] [id number] Brian as MATERNAL [phone] [facility] ical & CHILD [address] [place] [address] 2020-03-30 2020-03-30 Emergency Aufderheide [facility] 1.2.840.114 [id number] Univers 19:54:00 20:46:00 , Maisha [place] 350.1.13.10 i ty of [place]any [place] 4.2.7.2.686 [place] [facility] [phone] [facility] [address] [place] 2020-03-30 2020-03-30 Orders Doctor AN 1.2.840.114 [id number] Univers 00:00:00 00:00:00 Only Unassigned, BRIE 350.1.13.10 ity of [place] [facility] 4.2.7.2.686 Brian as [phone] [address] 2020-03-25 2020-03-25 Outpatient R AKINSIPE, [facility] [id number] Univers 13:15:00 13:15:00 AILEEN [id number] jeannay o f [facility] 2020-03-25 2020-03-25 Outpatient R AKINSIPE, [facility] [id number] Univers 13:15:00 13:15:00 AILEEN cox o f [facility] 2020-03-10 2020-03-10 Outpatient R AKINSIPE, [facility] [id number] Univers 08:15:00 08:15:00 AILEEN [id number] jeannay o f [facility] 2020-03-10 2020-03-10 Outpatient R AKINSIPE, [facility] [id number] Univers 08:15:00 08:15:00 AILEEN meeksy o f [facility] 2020-03-04 2020-03-04 Outpatient R FLYNN, [facility] [id number] Univers 08:15:00 08:15:00 KAMILAH [id number] ity o f [facility] 2020-03-04 2020-03-04 Outpatient R RINA, [facility] [id number] Univers 08:15:00 08:15:00 KAMILAH ity o f [facility] 2020-03-02 2020-03-02 Outpatient R AKINSIPE, [facility] [id number] Univers 09:30:00 09:30:00 AILEEN [id number] ity o f [facility] 2020-02-24 2020-02-24 Outpatient R AKINSIPE, [facility] [id number] Univers 15:30:00 15:30:00 AILEEN [id number] jeannay o f [facility] 2020-02-24 2020-02-24 Outpatient R AKINSIPE, [facility] [id number] Univers 15:30:00 15:30:00 AILEEN meeksy o f [facility] 2020-02-12 2020-02-12 Outpatient R AKINSIPE, [facility] [id number] Univers 09:30:00 09:30:00 AILEEN ity o f [facility] 2020-02-12 2020-02-12 Outpatient R AKINSIPE, [facility] [id number] Univers 09:30:00 09:30:00 AILEEN meeksy o f [facility] 2020-02-11 2020-02-11 Outpatient [facility] [id number] Univers 10:30:00 10:30:00 [id number] ity of [facility] 2020-02-11 2020-02-11 Outpatient R AKINSIPE, [facility] [id number] Univers 10:30:00 10:30:00 AILEEN ity o f [facility] 2020-02-11 2020-02-11 Telephone Akinsipe, [facility] 1.2.840.114 [id number] Univers 00:00:00 00:00:00 Aileen Gee 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10 ity of REGIONAL 4.2.7.2.686 Brian as MATERNAL [phone] [facility] & CHILD [address] [place] [address] 2020-02-03 2020-02-03 Abstract Angel [facility] 1.2.840.114 [id number] Univers 00:00:00 00:00:00 Aileen Marlen 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10 ity of REGIONAL [id number] Brian as MATERNAL [phone] [facility] & [address] 2020-01-31 2020-01-31 Outpatient R [facility] [id number] Univers 10:00:00 10:00:00 ity of [facility] 2020-01-31 2020-01-31 Outpatient P [facility] [id number] Univers 10:00:00 10:00:00 ity of [facility] 2020-01-25 2020-01-25 Emergency [facility] 1.2.062.914 [id number] Univers 19:51:00 22:26:00 Cathryn Abad [place] 350.1.13.10 i ty [facility] 4.2.7.2.686 [place] [id number] [facility] [address] [place] 2020-01-20 2020-01-20 Abstract [facility] 1.2.840.114 [id number] Univers 00:00:00 00:00:00 Kamilah R 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10 ity of REGIONAL 4.2.7.2.686 Brian as MATERNAL [phone] [facility] & CHILD [address] [place] [address] 2020-01-17 2020-01-17 [employer] 3, [facility] Us Room UNIVERSIT 1 .2.840.114 [id number] Univers 11:16:31 12:24:00 Visit Yessenia Castillo [facility] 350.1.13.10 ity of [facility] 4.2.7.2.686 [place] [id number] [facility] [address] 2020-01-17 2020-01-17 Outpatient R [facility] [id number] Univers 11:15:00 11:15:00 ity of [facility] 2020-01-17 2020-01-17 Outpatient P [facility] [id number] Univers 11:15:00 11:15:00 ity of [facility] 2020-01-15 2020-01-15 Routine Angel, [facility] [id number] Univers 10:10:58 11:15:50 Aileen C 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10 ity of Visit REGIONAL [id number] Brian as MATERNAL [phone] [facility] ical & CHILD [address] [place] [address] 2020-01-15 2020-01-15 Outpatient R AKINTRISHPE, [facility] [id number] Univers 10:45:00 10:45:00 AILEEN itrc o [facility] 2020-01-15 2020-01-15 Outpatient R AKINSIPE, [facility] [id number] Univers 10:45:00 10:45:00 AILEEN ity o [facility] 2019-12-24 2019-12-24 [facility] [employer] [facility], [facility] 1.2.840. 114 [id number] Univers 10:58:41 11:14:03 Visit Aileen Ortiz C 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 10 ity of REGIONAL 4.2.7.2.686 Brian as MATERNAL [phone] [address] 2019-12-24 2019-12-24 Outpatient [facility] [id number] Univers 10:30:00 10:30:00 [id number] ity [facility] 2019-12-24 2019-12-24 Outpatient R AKINSIPE, [facility] [id number] Univers 10:30:00 10:30:00 AILEEN ity o [facility] 2019-12-20 2019-12-20 Telephone [facility] 1.2.840.114 [id number] Univers 00:00:00 00:00:00 Aileen C 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10 ity of REGIONAL 4.2.7.2.686 Brian as MATERNAL [phone] [facility] & [address] 2019-12-19 2019-12-19 Telephone [facility] 1.2.840.114 [id number] Univers 00:00:00 00:00:00 Aileen C 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[address] [facility] CARE SYSTEM [id number] Brian as MATERNAL [phone] [facility] ical & CHILD [address] [place] [address] 2019-12-18 2019-12-18 Initial [facility] [id number] Univers 10:13:25 14:20:03 Aileen C 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10 ity of Visit REGIONAL 4.2.7.2.686 Brian as MATERNAL [phone] [address] 2019-12-18 2019-12-18 Outpatient R [facility] [id number] Univers 09:30:00 09:30:00 ity of [facility] 2019-12-18 2019-12-18 [facility] [id number] Univers 09:30:00 09:30:00 AILEEN meeksy o f [facility] 2019-12-18 2019-12-18 Orders Doctor AN 1.2.840.114 [id number] Univers 00:00:00 00:00:00 Only Unassigned, BRIE 350.1.13.10 ity of [place] [facility] 4.2.7.2.686 Brian as [phone] [address] 2019-11-22 2019-11-22 Outpatient R [facility] [id number] Univers 09:00:00 09:00:00 [id number] ity [facility] 2019-11-22 2019-11-22 Outpatient R [facility] [id number] Univers 09:00:00 09:00:00 ity of [facility] 2019-11-12 2019-11-12 Telephone Jorge MNTAY 1.2.840.114 [id number] Univers 00:00:00 00:00:00 Erica Grimaldo 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[address] [facility] [id number] Brian as MATERNAL [phone] [facility] & CHILD [address] [place] [address] 2019-11-11 2019-11-11 Telephone Jorge [facility] 1.2.840.114 [id number] Univers 00:00:00 00:00:00 Erica Grimaldo 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[address] [facility] 4.2.7.2.686 Brian as MATERNAL [phone] [facility] ical & CHILD [address] [place] [address] 2019-11-08 2019-11-08 Office Jorge [facility] [id number] Univers 10:10:32 10:59:47 Visit Erica Grimaldo 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[address] [facility] 4.2.7.2.686 Brian as MATERNAL [phone] [facility] & CHILD [address] [place] [address] 2019-11-08 2019-11-08 [facility] [id number] Univers 10:15:00 10:15:00 ERICA ity [facility] 2019-11-08 2019-11-08 Outpatient R [facility] [id number] -[id number] Univers 09:30:00 09:30:00 [id number] ity [facility] 2019-11-08 2019-11-08 Orders Doctor AN 1.2.840.114 [id number] Univers 00:00:00 00:00:00 Only Unassigned, BRIE 350.1.13.10 ity of [place] [facility] 4.2.7.2.686 Brian as [phone] [facility] [address] 2019-09-20 2019-09-20 Laboratory Lab, Adc Fam Pob I [facility] 1.2. 840.114 [id number] Univers 07:46:27 08:06:27 Only Anene, [facility] 350.1.13.10 ity of [place] 4.2.7.2.686 Brian as Professio [phone] [facility] [address] 2019-09-20 2019-09-20 Letter Doctor AN 1.2.840.114 [id number] Univers 00:00:00 00:00:00 (Out) Unassigned, BRIE 350.1.13.10 ity of [place] [facility] 4.2.7.2.686 Brian as [phone] [facility] [address] 2019-08-27 2019-08-27 Emergency Sina Tapia [facility] 1.2. 840.114 [id number] Univers 12:16:29 15:48:00 Som Haque [place] 350.1.13.10 [facility] 4.2.7.2.686 [facility] [phone] [facility] [address] 2019-08-27 2019-08-27 Emergency X HENRI, [facility] ERT [id number] Univers 11:46:00 11:46:00 SINA [facility] Results Test Description Test Time Test Comments Results Result Comments Source POCT TEST 2020-05-29 15:28:00 Test Item Value Reference Range Interpretation Comme nts POCT PREG (test code = 1605) Negative On board controls acceptable with C Line (test code = 3574) Yes POCT PREG LOT # (test code = 3575) POCT PREG TEST DATE (test code = 3576) [facility] [id number] 15:50:00 Test Item Value Reference Range Interpretation Comments POCT PREG (test code = 1605) Negative On board controls acceptable with C Yes Line (test code = 3574) POCT PREG LOT # (test code = 3575) POCT PREG TEST DATE (test code = 3576) [facility] [id number] 15:50:00 Test Item Value Reference Range Interpretation Comments POCT PREG (test code = 1605) Negative On board controls acceptable with C Yes Line (test code = 3574) POCT PREG LOT # (test code = 3575) POCT PREG TEST DATE (test code = 3576) [facility] [id number] 15:50:00 Test Item Value Reference Range Interpretation Comments POCT PREG (test code = 1605) Negative On board controls acceptable with C Yes Line (test code = 3574) POCT PREG LOT # (test code = 3575) POCT PREG TEST DATE (test code = 3576) [facility] BHCG (QUANTITATIVE)2020-01-26 03:41:00 Test Item Value Reference Range Interpretation Comments BETA HCG (test See_Comment [Automated m essage] code = The system [facility] [id number]) generated this result transmit ivon reference range : Non- fe male and male patien ts: <5 mIU/mL. The reference range was not used to interpret this result as normal/abnormal . KHANH (test code Gestational Age ? ? = KHANH) ?Range (mIU/mL) 1-10 ?Weeks ?[id number] Weeks ?31477-98418173-36 Weeks ?3582-95421093-60 Weeks ?3192-378226 Biotin has been reported to cause a negative bias, interpret results relative to patient's use of biotin. [facility]AP[facility]AT[facility]ABOLIC PANEL (NA, K, CL, CO2, GLUCOSE, BUN, CREATININE, CA)2020-01-26 03:26:00 Test Item Value Reference Range Interpretation Comments NA (test code = 143 mmol/L 135-145 0671144727) K (test code = 3.3 mmol/L 3.5-5 L 9878270453) CL (test code = 108 mmol/L 98-108 3423342788) CO2 TOTAL (test code = 24 mmol/L 23-31 4755739674) AGAP (test code = 2-16 5695281590) BUN (test code = 11 mg/dL 7-23 3165239373) GLUCOSE (test code = 114 mg/dL 70-110 H 2356880222) CREATININE (test code = 0.66 mg/dL 0.5-1.04 9667572018) CALCIUM (test code = 9.9 mg/dL 8.6-10.6 2071104816) eGFR Calculation mL/min/1.73m2 (Non-) (test code = 0384538107) eGFR Calculation mL/min/1.73m2 () (test code = 4189043448) KHANH (test code = KHANH) Association of Glomerular Filtration Rate (GFR) and Staging of Kidney Disease* + --+ --+ ------+| GFR (mL/min/1.73 m2) ?| With Kidney Damage ?| ?Without Kidney Damage+ --------+ --------+ +| ?>90 ?| ?Stage one ?| ? Normal ?+ ---+ ---+ -------+| ?60-89 ?| ?Stage two ?| ? Decreased GFR ? + --+ --+ ------+| ?30-59 ?| ?Stage three ?| ? Stage three ? + --+ --+ ------+| ?15-29 ?| ?Stage four ? | ? Stage four ?+ ---+ ---+ -------+| ?<15 (or dialysis) ? ?| ?Stage five ? | ? Stage five ?+ ---+ ---+ -------+ *Each stage assumes the associated GFR level has been in effect for at least three months. ?Stages 1 to 5, with or without kidney disease, indicate chronic kidney disease. Notes: Determination of stages one and two (with eGFR >59mL/min/1.73 m2) requires estimation of kidney damage for at least three months as defined by structural or functional abnormalities of the kidney, manifested by either:Pathological abnormalities or Markers of kidney damage (including abnormalities in the composition of the blood or urine or abnormalities in imaging tests). Lab Interpretation Abnormal (test code = 98612-3) [facility] and Screen - ONCE [id number] 03:18:40 Test Item Value Reference Range Interpretation Comments ABO & RH (test code B Positive Performe d at [facility] = 20) Laboratory Serv [facility] [place], [place] [id number] Free: [phone] A No. [id number] IAT (test code = Negative Performed a t [facility] 1185) Laboratory Serv [facility] [place], [place] [address]Toll Free: [phone] A No. [id number] [facility]2020-11-15 03:18:00 Test Item Value Reference Range Interpretation Comments APPEARANCE (test code = Hazy Clear A 4011686506) COLOR (test code = Yellow Yellow 7172876147) PH (test code = 4.8-8.0 9799689414) SP GRAVITY (test code = 1.003-1.030 4502442124) GLU U QUAL (test code = Normal Normal 4986821837) BLOOD (test code = 2+ Negative A 6004113814) KETONES (test code = Negative Negative 8289853212) PROTEIN (test code = Negative Negative 2887-8) UROBILIN (test code = Normal Normal 5065474822) BILIRUBIN (test code = Negative Negative 7534872972) NITRITE (test code = Negative Negative 1769939233) LEUK MANI (test code = Negative Negative 9539604377) RBC/HPF (test code = See_Comment H [Autom ated message] 1751574091) The system [employer] generated this result transmitted ref erence range: 0 - 3 HP F. The reference range was not used to int erpret this result as normal/abnormal . WBC/HPF (test code = See_Comment H [Autom ated message] 9123427399) The system [employer] generated this result transmitted ref erence range: 0 - 5 HP F. The reference range was not used to int erpret this result as normal/abnormal . BACTERIA (test code = Few Negative A 2710431583) MUCOUS (test code = Slight Negative LPF A 8534117109) SQ EPITH (test code = HPF 9773223525) Lab Interpretation (test Abnormal code = 37937-8) [facility] WITH [id number] 02:21:00 Test Item Value Reference Range Interpretation Comments WBC (test code = See_Comment [Automated 6690-2) message] The sy stem which generated this result transmitted reference range : 4.30 - 11.10 10*3/?L. The reference range was not used to interpret this result as normal/abnormal . RBC (test code = See_Comment [Automated 559-8) message] The sy stem which generated this result transmitted reference range : 3.93 - 5.25 10*6/?L. The reference range was not used to interpret this result as normal/abnormal . HGB (test code = 13.9 g/dL 11.6-15 718-7) HCT (test code = 38.8 % 35.7-45.2 4544-3) MCV (test code = 87.0 fL 80.6-95.5 787-2) MCH (test code = 31.2 pg 25.9-32.8 785-6) MCHC (test code = 35.8 g/dL 31.6-35.1 H 786-4) RDW-SD (test code = 36.1 fL 39-49.9 L 28123-7) RDW-CV (test code = 11.4 % 12-15.5 L 788-0) PLT (test code = See_Comment [Automated 777-3) message] The sy stem which generated this result transmitted reference range : 166 - 358 10*3/ ?L. The reference r janny was not used to interpret this result as normal/abnormal . MPV (test code = 9.3 fL 9.5-12.9 L 58813-0) NRBC/100 WBC (test See_Comment [Automat ed code = 3362449001) message] The system which generated this result transmitted reference range : 0.0 - 10.0 /100 WBCs. The refer ence range was not u sed to interpret th is result as normal/abnormal . NRBC x10^3 (test code <0.01 See_Comment [Auto mated = 5435211143) message] The s ystem which generated this result transmitted reference range : 10*3/?L. The reference range was not used to interpret this result as normal/abnormal . GRAN MAT (NEUT) % 63.0 % (test code = 770-8) IMM GRAN % (test code 0.30 % = 5154515659) LYMPH % (test code = 30.5 % 736-9) MONO % (test code = 5.1 % 5905-5) EOS % (test code = 0.4 % 713-8) BASO % (test code = 0.7 % 706-2) GRAN MAT x10^3(ANC) 4.65 10*3/uL 1.88-7.09 (test code = 3015273717) IMM GRAN x10^3 (test <0.03 0-0.06 code = 4593025829) LYMPH x10^3 (test code 2.25 10*3/uL 1.32-3.29 = 731-0) MONO x10^3 (test code 0.38 10*3/uL 0.33-0.92 = 742-7) EOS x10^3 (test code = 0.03 10*3/uL 0.03-0.39 711-2) BASO x10^3 (test code 0.05 10*3/uL 0.01-0.07 = 704-7) Lab Interpretation Abnormal (test code = 48897-0) [facility] URINALYSIS W SPECIFIC [id number] 16:29:00 Test Item Value Reference Range Interpretation Comments POCT U SP GRAV (test code = 3255) . 1.005-1.025 POCT PH U (test code = 3254) . 5-8 POCT U LEUK EST (test code = 3263) . Negative - Negative POCT U NIT (test code = 3262) . Negative - Negative POCT U PROT (test code = 3259) Trace Negative - Negative POCT U GLU (test code = 3256) Neg Negative - Negative POCT U KETONE (test code = 3258) . Negative - Negative POCT U UROBILI (test code = 3260) . 0.2-1 POCT U BILI (test code = 3261) . Negative - Negative POCT U BLD (test code = 3257) . Negative - Negative POCT U COLOR (test code = 3266) POCT U APPEAR (test code = 3267) [facility] [id number] 15:20:00 Test Item Value Reference Range Interpretation Comments POCT PREG (test code = 1605) Positive On board controls acceptable with C Yes Line (test code = 3574) POCT PREG LOT # (test code = 3575) POCT PREG TEST DATE (test code = 3576) [facility] URINALYSIS W/O SPECIFIC [id number] 15:20:00 Test Item Value Reference Range Interpretation Comments POCT PH U (test code = 3254) 6 mg/dl 5-8 POCT U LEUK EST (test code = 2+ Negative - Negative 3263) POCT U NIT (test code = 3262) Neg Negative - Negative POCT U PROT (test code = 3259) Trace Negative - Negative POCT U GLU (test code = 3256) Neg Negative - Negative POCT U KETONE (test code = 3258) None Negative - Negative POCT U BLD (test code = 3257) Large Negative - Negative [facility] [id number] 15:20:00 Test Item Value Reference Range Interpretation Comments POCT PREG (test code = 1605) Positive On board controls acceptable with C Yes Line (test code = 3574) POCT PREG LOT # (test code = 3575) POCT PREG TEST DATE (test code = 357) [facility] URINALYSIS W/O SPECIFIC [id number] 15:20:00 Test Item Value Reference Range Interpretation Comments POCT PH U (test code = 3254) 6 mg/dl 5-8 POCT U LEUK EST (test code = 2+ Negative - Negative 3263) POCT U NIT (test code = 3262) Neg Negative - Negative POCT U PROT (test code = 3259) Trace Negative - Negative POCT U GLU (test code = 3256) Neg Negative - Negative POCT U KETONE (test code = 3258) None Negative - Negative POCT U BLD (test code = 3257) Large Negative - Negative [facility] [id number] 15:20:00 Test Item Value Reference Range Interpretation Comments POCT PREG (test code = 1605) Positive On board controls acceptable with C Yes Line (test code = 3574) POCT PREG LOT # (test code = 3575) POCT PREG TEST DATE (test code = 357) [facility] URINALYSIS W/O SPECIFIC [id number] 15:20:00 Test Item Value Reference Range Interpretation Comments POCT PH U (test code = 3254) 6 mg/dl 5-8 POCT U LEUK EST (test code = 2+ Negative - Negative 3263) POCT U NIT (test code = 3262) Neg Negative - Negative POCT U PROT (test code = 3259) Trace Negative - Negative POCT U GLU (test code = 3256) Neg Negative - Negative POCT U KETONE (test code = 3258) None Negative - Negative POCT U BLD (test code = 3257) Large Negative - Negative [facility] [id number] 15:20:00 Test Item Value Reference Range Interpretation Comments POCT PREG (test code = 1605) Positive On board controls acceptable with C Yes Line (test code = 3574) POCT PREG LOT # (test code = 3575) POCT PREG TEST DATE (test code = 357) [facility] URINALYSIS W/O SPECIFIC [id number] 15:20:00 Test Item Value Reference Range Interpretation Comments POCT PH U (test code = 3254) 6 mg/dl 5-8 POCT U LEUK EST (test code = 2+ Negative - Negative 3263) POCT U NIT (test code = 3262) Neg Negative - Negative POCT U PROT (test code = 3259) Trace Negative - Negative POCT U GLU (test code = 3256) Neg Negative - Negative POCT U KETONE (test code = 3258) None Negative - Negative POCT U BLD (test code = 3257) Large Negative - Negative [facility] [id number] 15:20:00 Test Item Value Reference Range Interpretation Comments POCT PREG (test code = 1605) Positive On board controls acceptable with C Yes Line (test code = 3574) POCT PREG LOT # (test code = 3575) POCT PREG TEST DATE (test code = 357) [facility] URINALYSIS W/O SPECIFIC [id number] 15:20:00 Test Item Value Reference Range Interpretation Comments POCT PH U (test code = 3254) 6 mg/dl 5-8 POCT U LEUK EST (test code = 2+ Negative - Negative 3263) POCT U NIT (test code = 3262) Neg Negative - Negative POCT U PROT (test code = 3259) Trace Negative - Negative POCT U GLU (test code = 3256) Neg Negative - Negative POCT U KETONE (test code = 3258) None Negative - Negative POCT U BLD (test code = 3257) Large Negative - [facility] [id number] 15:20:00 Test Item Value Reference Range Interpretation Comments POCT PREG (test code = 1605) Positive On board controls acceptable with C Yes Line (test code = 3574) POCT PREG LOT # (test code = 3575) POCT PREG TEST DATE (test code = 3576) [facility] URINALYSIS W/O SPECIFIC [id number] 15:20:00 Test Item Value Reference Range Interpretation Comments POCT PH U (test code = 3254) 6 mg/dl 5-8 POCT U LEUK EST (test code = 2+ Negative - Negative 3263) POCT U NIT (test code = 3262) Neg Negative - Negative POCT U PROT (test code = 3259) Trace Negative - Negative POCT U GLU (test code = 3256) Neg Negative - Negative POCT U KETONE (test code = 3258) None Negative - Negative POCT U BLD (test code = 3257) Large Negative - Negative [facility] [id number] 15:20:00 Test Item Value Reference Range Interpretation Comments POCT PREG (test code = 1605) Positive On board controls acceptable with C Yes Line (test code = 3574) POCT PREG LOT # (test code = 3575) POCT PREG TEST DATE (test code = 357) [facility] URINALYSIS W/O SPECIFIC [id number] 15:20:00 Test Item Value Reference Range Interpretation Comments POCT PH U (test code = 3254) 6 mg/dl 5-8 POCT U LEUK EST (test code = 2+ Negative - Negative 3263) POCT U NIT (test code = 3262) Neg Negative - Negative POCT U PROT (test code = 3259) Trace Negative - Negative POCT U GLU (test code = 3256) Neg Negative - Negative POCT U KETONE (test code = 3258) None Negative - Negative POCT U BLD (test code = 3257) Large Negative - Negative [facility] [id number] 15:20:00 Test Item Value Reference Range Interpretation Comments POCT PREG (test code = 1605) Positive On board controls acceptable with C Yes Line (test code = 3574) POCT PREG LOT # (test code = 3575) POCT PREG TEST DATE (test code = 357) [facility] URINALYSIS W/O SPECIFIC [id number] 15:20:00 Test Item Value Reference Range Interpretation Comments POCT PH U (test code = 3254) 6 mg/dl 5-8 POCT U LEUK EST (test code = 2+ Negative - Negative 3263) POCT U NIT (test code = 3262) Neg Negative - Negative POCT U PROT (test code = 3259) Trace Negative - Negative POCT U GLU (test code = 3256) Neg Negative - Negative POCT U KETONE (test code = 3258) None Negative - Negative POCT U BLD (test code = 3257) Large Negative - Negative [facility] [id number] 15:24:00 Test Item Value Reference Range Interpretation Comments POCT PREG (test code = 1605) Negative On board controls acceptable with C Yes Line (test code = 3574) POCT PREG LOT # (test code = 3575) POCT PREG TEST DATE (test code = 3576) [facility] [id number] 15:24:00 Test Item Value Reference Range Interpretation Comments POCT PREG (test code = 1605) Negative On board controls acceptable with C Yes Line (test code = 3574) POCT PREG LOT # (test code = 3575) POCT PREG TEST DATE (test code = 3576) [facility]"
[2021-02-11 09:00] LABS: Urine Blood 1+ (Negative); Urine Glucose Negative (Negative); Urine Protein 1+ (Negative); Urine Specific Gravity >=1.030 (1.005-1.030); Urine pH 5.5 (5.0-7.0)
[2021-02-11] MEDS ORDERED: ONDANSETRON 4 MG/2 ML VIAL ONE (09:01)
[2021-02-11 09:08] LABS: Absolute Lymphocytes (CBC) 0.9 K/uL (0.7-4.9); Basophils % 0.3 % (0-1.3); Hematocrit 43.9 % (36.0-45.0); Lymphocytes % 15.3 % (15.3-44.8); RBC Red Blood Cell Count 5.13 M/uL (3.86-4.86)
[2021-02-11] MEDS ORDERED: NA CHLORIDE 0.9% 2,000 ML ONE (09:09)
[2021-02-11 09:28] LABS: Albumin 4.2 g/dL (3.4-5.0); Bilirubin Direct 0.2 mg/dL (0-0.2); Bilirubin Total 0.8 mg/dL (0.2-1.0); Potassium 3.8 mmol/L (3.5-5.1); Protein, Total 8.6 g/dL (6.4-8.2)
[2021-02-11 10:32] LABS: Urine Specific Gravity/Preg >1.030 (1.005-1.030)
--- NOTE | 2021-02-11 13:35 | EDPHYS ---
Physician Documentation [facility] Name: Nabila Quinonez Age: 20 yrs Sex: Female : 2000 Arrival Date: 02/11/2021 Time: 08:35 Bed 19 Private MD: ED Physician Chase Bower HPI: 02/11 10:55 This 20 yrs old Female presents to ER via Ambulatory with complaints of Vomiting, kdr Abdominal Pain, body aches. 10:55 The patient presents to the emergency department with nausea, that is mild, vomiting, kdr that is intermittent, abdominal pain, of the suprapubic area. Onset: The symptoms/episode began/occurred gradually, 2 day(s) ago. Possible causes: unknown. The symptoms are aggravated by movement, pressure, The symptoms are alleviated by nothing. Associated signs and symptoms: Pertinent positives: abdominal pain, nausea, vomiting. Severity of symptoms: At their worst the symptoms were moderate severe today, in the emergency department the symptoms have improved mildly. The patient has not experienced similar symptoms in the past. The patient has not recently seen a physician. 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 - Social history:: Smoking status: Reported history of juuling and/or vaping. ROS: 10:55 Constitutional: Negative for fever, chills, and weight loss, Eyes: Negative for injury, kdr pain, redness, and discharge, ENT: Negative for injury, pain, and discharge, Neck: Negative for injury, pain, and swelling, Cardiovascular: Negative for chest pain, palpitations, and edema, Respiratory: Negative for shortness of breath, cough, wheezing, and pleuritic chest pain, Back: Negative for injury and pain, : Negative for injury, bleeding, discharge, and swelling, MS/Extremity: Negative for injury and deformity, Skin: Negative for injury, rash, and discoloration, Neuro: Negative for headache, weakness, numbness, tingling, and seizure activity. Psych: Negative for depression, anxiety, suicide ideation, homicidal ideation, and hallucinations, Allergy/Immunology: Negative for hives, rash, and allergies, Endocrine: Negative for neck swelling, polydipsia, polyuria, polyphagia, and marked weight changes, Hematologic/Lymphatic: Negative for swollen nodes, abnormal bleeding, and unusual bruising. 10:55 Abdomen/GI: Positive for abdominal pain, nausea and vomiting, Negative for black/tarry stool, rectal pain, rectal bleeding, bowel incontinence. Exam: 10:55 Constitutional: This is a well developed, well nourished patient who is awake, alert, kdr and in no acute distress. Head/Face: Normocephalic, atraumatic. Eyes: Pupils equal round and reactive to light, extra-ocular motions intact. Lids and lashes normal. Conjunctiva and sclera are non-icteric and not injected. Cornea within normal limits. Periorbital areas with no swelling, redness, or edema. Neck: Trachea midline, no thyromegaly or masses palpated, and no cervical lymphadenopathy. Supple, full range of motion without nuchal rigidity, or vertebral point tenderness. No Meningismus. Chest/axilla: Normal chest wall appearance and motion. Nontender with no deformity. No lesions are appreciated. Cardiovascular: Regular rate and rhythm with a normal S1 and S2. No gallops, murmurs, or rubs. Normal PMI, no JVD. No pulse deficits. Respiratory: Lungs have equal breath sounds bilaterally, clear to auscultation and percussion. No rales, rhonchi or wheezes noted. No increased work of breathing, no retractions or nasal flaring. Back: No spinal tenderness. No costovertebral tenderness. Full range of motion. Skin: Warm, dry with normal turgor. Normal color with no rashes, no lesions, and no evidence of cellulitis. MS/ Extremity: Pulses equal, no cyanosis. Neurovascular intact. Full, normal range of motion. Neuro: Awake and alert, GCS 15, oriented to person, place, time, and situation. Cranial nerves II-XII grossly intact. Motor strength 5/5 in all extremities. Sensory grossly intact. Cerebellar exam normal. Normal gait. Psych: Awake, alert, with orientation to person, place and time. Behavior, mood, and affect are within normal limits. 10:55 Abdomen/GI: Inspection: abdomen appears normal, Bowel sounds: diminished, in all quadrants, Palpation: soft, mild abdominal tenderness, in the suprapubic area. Vital Signs: 08:46 BP 118 / 82; Pulse 88; Resp 17; Temp 97.9; Pulse Ox 100% ; Weight 63.5 kg; Height 5 ft. jl7 6 in. (167.64 cm); Pain 6/10; 09:00 BP 117 / 80; Pulse 85; Resp 18; Temp 97.9; Pulse Ox 100% ; sl2 10:00 BP 108 / 70; Pulse 82; Resp 18; Pulse Ox 100% ; sl2 11:00 BP 110 / 76; Pulse 84; Resp 16; Temp 98.6; Pulse Ox 100% ; sl2 12:06 BP 107 / 70; Pulse 82; Resp 16; Temp 98.8; Pulse Ox 100% on R/A; sl2 13:15 BP 108 / 74; Pulse 84; Resp 16; Temp 97.4; Pulse Ox 99% on R/A; sl2 13:15 BP 106 / 68; Pulse 78; Resp 18; Temp 98.4; Pulse Ox 100% on R/A; sl2 08:46 Body Mass Index 22.60 (63.50 kg, 167.64 cm) jl7 MDM: 10:55 Data reviewed: vital signs, nurses notes, lab test result(s), radiologic studies. kdr Counseling: I had a detailed discussion with the patient and/or guardian regarding: the historical points, exam findings, and any diagnostic results supporting the discharge/admit diagnosis, lab results, radiology results, the need for outpatient follow up. 13:35 Patient medically screened. kdr 02/11 08:51 Order name: Basic Metabolic Panel kdr 02/11 08:51 Order name: CBC with Diff kdr 02/11 08:51 Order name: Hepatic Function; Complete Time: 10:54 kdr 02/11 08:51 Order name: Lipase; Complete Time: 10:54 kdr 02/11 08:51 Order name: Basic Metabolic Panel; Complete Time: 10:54 EDMS 02/11 08:51 Order name: CBC with Automated Diff; Complete Time: 09:15 EDMS 02/11 08:51 Order name: IV Saline Lock; Complete Time: 09:03 kdr 02/11 08:51 Order name: Labs collected and sent; Complete Time: 09:03 kdr 02/11 09:00 Order name: Urine Dipstick-Ancillary; Complete Time: 09:15 EDMS 02/11 09:04 Order name: Urine --Ancillary (enter results) em1 02/11 09:04 Order name: Urine --Ancillary; Complete Time: 10:54 EDMS 02/11 12:54 Order name: PO challenge; Complete Time: 12:54 sl2 Administered Medications: 09:03 Drug: Zofran (Ondansetron) 4 mg Route: IVP; Site: right antecubital; sl2 10:00 Follow up: Response: No adverse reaction; Marked relief of symptoms; Nausea is decreasedsl2 09:17 Drug: NS 0.9% 2000 ml Route: IV; Rate: 2 bolus; Site: right antecubital; sl2 10:30 Follow up: IV Status: Completed infusion sl2 12:14 Follow up: Response: No adverse reaction; IV Status: Completed infusion sl2 Disposition Summary: 02/11/21 13:35 Discharge Ordered Location: Home kdr Problem: new kdr Symptoms: have improved kdr Condition: Stable kdr Diagnosis - Vomiting kdr - Dehydration kdr - Abdominal pain, Generalized kdr - Lower abdominal pain, unspecified kdr Followup: kdr - With: Private Physician - When: 2 - 3 days - Reason: If symptoms return, Further diagnostic work-up, Recheck today's complaints, Continuance of care, Re-evaluation by your physician Discharge Instructions: - Discharge Summary Sheet kdr - Dehydration, Adult kdr - Abdominal Pain, Adult, [id number] kdr Forms: - Medication Reconciliation Form kdr - Thank You Letter kdr Prescriptions: - Zofran 4 mg Oral Tablet - take 1 tablet by ORAL route every 4-6 hours As needed; 20 tablet; Refills: 0, kdr Product Selection Permitted Signatures: Dispatcher [employer] [facility] Chase Bower MD MD kdr Seema Torres RN RN jl7 Tegan Terry RN RN sl2
--- NOTE | 2021-02-11 13:35 | ER ---
Nurse's Notes [facility] Name: Nabila Quinonez Age: 20 yrs Sex: Female : 2000 Arrival Date: 02/11/2021 Time: 08:35 Bed 19 Private MD: Diagnosis: Vomiting;Dehydration;Abdominal pain, Generalized;Lower abdominal pain, unspecified Presentation: 02/11 08:46 Chief complaint: Patient states: N/V and intermittent lower abdominal pain x 2 days, jl7 denies fever, denies urinary symptoms. Coronavirus screen: nausea, vomiting. Ebola Screen: No symptoms or risks identified at this time. Initial Sepsis Screen: Does the patient meet any 2 criteria? No. Patient's initial sepsis screen is negative. Does the patient have a suspected source of infection? No. Patient's initial sepsis screen is negative. Risk Assessment: Do you want to hurt yourself or someone else? Patient reports no desire to harm self or others. Onset of symptoms was February 09, 2021. Care prior to arrival: None. 08:46 Method Of Arrival: Ambulatory [facility] 08:46 Acuity: FRENCH 3 jl7 Triage Assessment: 08:47 General: Appears in no apparent distress. uncomfortable, Behavior is calm, cooperative, jl7 appropriate for age. Pain: Complains of pain in right lower quadrant and left lower quadrant Pain currently is 6 out of 10 on a pain scale. GI: Reports nausea, vomiting. 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 - Social history:: Smoking status: Reported history of juuling and/or vaping. Screenin:00 Abuse screen: Denies threats or abuse. Denies injuries from another. Nutritional sl2 screening: No deficits noted. Tuberculosis screening: No symptoms or risk factors identified. Fall Risk None identified. Assessment: 09:05 General: Appears uncomfortable, well groomed, well developed, Behavior is calm, sl2 cooperative, appropriate for age, Reports nausea, vomiting, abdominal pain \T\ fever X 2 days. Pain: Complains of pain in abdomen and left lower quadrant and right lower quadrant Pain does not radiate. Pain currently is 3 out of 10 on a pain scale. Quality of pain is described as aching, crampy, Pain began 2-3 days ago. Neuro: No deficits noted. Cardiovascular: No deficits noted. Respiratory: No deficits noted. GI: Abdomen is flat, Pt is actively vomiting bile, Bowel sounds present X 4 quads. Abd is soft and non tender Reports lower abdominal pain, upper abdominal pain, nausea, vomiting. : No deficits noted. 13:00 Reassessment: Patient offered PO fluids - tolerated well - denies nausea or other sl2 untoward symptoms. VSS. Vital Signs: 08:46 BP 118 / 82; Pulse 88; Resp 17; Temp 97.9; Pulse Ox 100% ; Weight 63.5 kg; Height 5 ft. jl7 6 in. (167.64 cm); Pain 6/10; 09:00 BP 117 / 80; Pulse 85; Resp 18; Temp 97.9; Pulse Ox 100% ; sl2 10:00 BP 108 / 70; Pulse 82; Resp 18; Pulse Ox 100% ; sl2 11:00 BP 110 / 76; Pulse 84; Resp 16; Temp 98.6; Pulse Ox 100% ; sl2 12:06 BP 107 / 70; Pulse 82; Resp 16; Temp 98.8; Pulse Ox 100% on R/A; sl2 13:15 BP 108 / 74; Pulse 84; Resp 16; Temp 97.4; Pulse Ox 99% on R/A; sl2 13:15 BP 106 / 68; Pulse 78; Resp 18; Temp 98.4; Pulse Ox 100% on R/A; sl2 08:46 Body Mass Index 22.60 (63.50 kg, 167.64 cm) jl7 ED Course: 08:35 Patient arrived in ED. as 08:47 Triage completed. jl7 08:47 Arm band placed on right wrist. jl7 08:50 Chase Bower MD is Attending Physician. kdr 08:55 Initial lab(s) drawn, by mt, sent to lab. Inserted saline lock: 22 gauge in right kj1 antecubital area, using aseptic technique. Blood collected. 08:59 Landell, Tegan, RN is Primary Nurse. sl2 09:00 Patient has correct armband on for positive identification. Bed in low position. Call sl2 light in reach. Side rails up X 1. 09:03 Urine collected: clean catch specimen, son colored, sediment noted. gd 10:30 Urine --Ancillary (enter results) Sent. sl2 10:34 No provider procedures requiring assistance completed. sl2 13:46 IV discontinued, intact, bleeding controlled, No redness/swelling at site. Pressure sl2 dressing applied. Administered Medications: 09:03 Drug: Zofran (Ondansetron) 4 mg Route: IVP; Site: right antecubital; sl2 10:00 Follow up: Response: No adverse reaction; Marked relief of symptoms; Nausea is decreasedsl2 09:17 Drug: NS 0.9% 2000 ml Route: IV; Rate: 2 bolus; Site: right antecubital; sl2 10:30 Follow up: IV Status: Completed infusion sl2 12:14 Follow up: Response: No adverse reaction; IV Status: Completed infusion sl2 Outcome: 13:35 Discharge ordered by . kdr 13:45 Discharged to home ambulatory. sl2 13:45 Condition: stable 13:45 Discharge instructions given to patient, Instructed on discharge instructions, the need for admit, medication usage, Demonstrated understanding of instructions, follow-up care, medications, Prescriptions given X 1. 13:50 Patient left the ED. jh5 Signatures: Chase Bower MD MD kdr Martinez, Amelia as Leal, Jahala RN RN jl7 Danika Franco Glynn gd Landell, Sophia, CORIN RN 2 Suzy Orellana RN RN 5
[2021-02-11 14:02] VITALS: O2SAT 100
[2021-02-11 14:12] VITALS: BP 106/68; TEMP 98.4
== END 2021-02-11 13:50 | disposition home or self-care (01) ==
LOC: ER 08:31
DX: E86.0 Dehydration (principal); R10.84 Generalized abdominal pain
CPT/HCPCS: 96361; 85025; 80048; 36415; 81025; 80076; 81003; 83690; 96374; 99284; J7030; J2405

== ENCOUNTER 2021-11-26 18:41 | Emergency (ER) | payer SELFPAY ==
--- OUTSIDE RECORDS SUMMARY | 2021-11-26 18:50 | XMS REPORT | Continuity of Care Document ---
:2000 Author Organization [facility] t Address [address] [place] [address] Care Team Providers Name Role Phone Aileen Mulligan Primary Care Physician [phone] ANIL PARSON Attending Clinician Unavailable NurseHolden Attending Clinician Unavailable Anil Parson MD Attending Clinician KAMILAH FLYNN Attending Clinician Unavailable AILEEN ORTIZ Attending Clinician Unavailable ERICA PATEL Attending Clinician Unavailable Visit, Kervin Nurse Attending Clinician Unavailable Aileen Mulligan Attending Clinician [phone] Doctor Unassigned, [place] Attending Clinician Unavailable Erica Mcdaniels Attending Clinician Goyo Castillo DO Attending Clinician Kamilah Caro Attending Clinician Ambar LINDA, Maisha Soto Attending Clinician [phone] Cathryn Ham Attending Clinician , [facility] Room Attending Clinician Unavailable Yessenia Castillo MD Attending Clinician Lab, Kervin Attending Clinician Unavailable Lab, Adc Fam Pob I Attending Clinician Unavailable Judith Vivar Attending Clinician Sina Mace Attending Clinician Shabnam LINDA, Som Abad Attending Clinician SINA TAPIA Attending Clinician Unavailable Payers Payer Name Policy Type Policy Number Effective Date Expiration Date [place]o OLIVER [id number] 2019 HEALTH 00:00:00 Problems Condition Condition Condition Status Onset Resolution Last Treating Co mments Source Name Details Category Date Date Treatment Clinician Date Positive Positive Disease Active Unive rs test for test for 5-07 ity of herpes herpes 00:00: [place] simplex simplex 00 Medical virus virus Branch (HSV) (HSV) antibody antibody Stress at Stress at Disease Active Uni vers home home 3-05 ity of 00:00: [place] 00 Medical Branch Rubella Rubella Disease Active 2019-03 Overview: Univ ers non-immune non-immune 0-14 Address i ty of status, status, 00:00: [facility] antepartum antepartum 00 Me dical Branch GBS (group GBS (group Disease Active 2019-03 Overview : Univers B B 0-09 Pending ity of streptococ streptococ [place] UTI cus[place] UTI 00 Medica l complicati complicati Br anch ng ng Supervisio Supervisio Disease Active 2019-03 U nivers n of n of 0-07 ity of high-risk high[place] [facility] Branch Nausea and Nausea and Disease Active 2019-03 U nivers vomiting vomiting 0-07 ity of in in 00:00: [place] 00 [facility] lazaro Branch Chlamydia Chlamydia Disease Active Uni vers trachomati trachomati 8 it y of s s 00:00: [place] infection infection 00 Medi lazaro of lower of lower Branch genitourin genitourin tonya sites tonya sites BMI BMI Disease Active 2019- Univers 24.0-24.9, 24.0-24.9, 8 it y of adult adult 00:00: [place] 00 Medical Branch Encounter Encounter Disease Active Uni vers for other for other 8 ity of general general 00:00: [place] counseling counseling 00 Me dical or advice or advice Bran ch on on contracept contracept ion ion Marijuana Marijuana Disease Active Overview: Univers use use 8-28 Formattin ity of 00:00: g of this [place] 00 note Medical might be Branch different from the original. Reports quit 12/12/19, but states daily use prior to finding out about Allergies, Adverse Reactions, Alerts Allergy Allergy Status Severity Reaction(s) Onset Inactive Treating Comm ents Source Name Type Date Date Clinician NO KNOWN Drug Active Univers ALLERGIE Class ity of S [place] [facility] Social History Social Habit Start Date Stop Date Quantity Comments Source ASSERTION 2019-12-10 University of 00:00:00 [place] [facility] History of Occasional University of tobacco use tobacco smoker [place] [facility] ical [facility] Exposure to 2021-10-03 2021-10-13 Not sure [facility] SARS-CoV-2 00:00:00 08:04:00 [facility] (event) Branch Alcohol intake 2020-11-27 2020-11-27 Current drinker Unive rsity of 00:00:00 00:00:00 of alcohol [place] [facility] (finding) Branch Tobacco use and 2020-05-15 2020-05-15 Smokeless tobacco Un iversity of exposure 00:00:00 00:00:00 non-user [place] [facility] History SDOH 2020-05-15 2020-05-15 2 University o f Alcohol Frequency 00:00:00 00:00:00 [place] M edical Branch Alcohol Comment 2020-05-15 2020-05-15 social Universit y of 00:00:00 00:00:00 [place] [facility] History SDOH 2019-11-08 2019-11-08 99 University o f Alcohol Std 00:00:00 00:00:00 [place] Medical Drinks Branch History SDMN 2019-11-08 2019-11-08 99 University o f Alcohol Binge 00:00:00 00:00:00 [place] [facility] al Branch Sex Assigned At 2000 2000 Universit y of 00:00:00 00:00:00 [facility] Branch Smoking Status Start Date Stop Date Source Unknown if ever smoked Universit y of [place] [facility] [place] Occasional tobacco smoker 2020-05-15 00:00:00 Un iversity of [place] [facility] Never smoker [facility] Medical Branch Medications Ordered Filled Start Stop Current Ordering Indication Dosage Frequency Signature Comments Components Source Medication Medication Date Date Medication? Clinician (SIG) Name Name medroxyPROG 2021- No [id number] 150mg Univers ESTERone 3-19 -18 ity of (DEPO-PROVE 16:00: 16:59 [place] RA) 00 :00 Medical injection Branch 150 mg medroxyPROG 1-0 2021- No [id number] 150mg 150 mg, Univers ESTERone 3-01 05-18 Intramuscu ity of (DEPO-PROVE 16:00: 16:59 lar, [place] RA) 00 :00 [id number], Medical injection 4 doses, Branch 150 mg First dose on Mon05/29/20 at 1100, Last dose on Mon02/05/21 at 1100, Routine medroxyPROG 202-0 2021- No [id number] 150mg Univers ESTERone 3-01 05-18 ity of (DEPO-PROVE 16:00: 16:59 [place] RA) 00 :00 Medical injection Branch 150 mg medroxyPROG 1-0 2021- No [id number] 150mg 150 mg, Univers ESTERone 3-18 Intramuscu ity of (DEPO-PROVE 16:00: 16:59 lar, [place] RA) 00 :00 [id number], Medical injection 4 doses, Branch 150 mg First dose on Mon05/29/20 at 1100, Last dose on Mon02/05/21 at 1100, Routine medroxyPROG 1-0 2021- No [id number] 150mg Univers ESTERone 3-01 05-18 ity of (DEPO-PROVE 16:00: 16:59 [place] RA) 00 :00 Medical injection Branch 150 mg medroxyPROG 2021-0 2021- No [id number] 150mg Univers ESTERone 3-19 -18 ity of (DEPO-PROVE 16:00: 16:59 [place] RA) 00 :00 Medical injection Branch 150 mg medroxyPROG 2021-0 2- No [id number] 150mg Univers ESTERone 3-19 -18 ity of (DEPO-PROVE 16:00: 16:59 [place] RA) 00 :00 Medical injection Branch 150 mg medroxyPROG 2021-0 2- No [id number] 150mg Univers ESTERone 3-19 -18 ity of (DEPO-PROVE 16:00: 16:59 [place] RA) 00 :00 Medical injection Branch 150 mg medroxyPROG 2021-0 2022- No [id number] 150mg Univers ESTERone 3-18 ity of (DEPO-PROVE 16:00: 16:59 [place] RA) 00 :00 Medical injection Branch 150 mg medroxyPROG 1-0 2021- No [id number] 150mg Univers ESTERone 3-01 05-18 ity of (DEPO-PROVE 16:00: 16:59 [place] RA) 00 :00 Medical injection Branch 150 mg medroxyPROG 2020-0 2021- No [id number] 150mg 150 mg, Univers ESTERone 3-18 Intramuscu ity of (DEPO-PROVE 16:00: 16:59 lar, [place] RA) 00 :00 [id number], Medical injection 4 doses, Branch 150 mg First dose on Mon05/29/20 at 1100, Last dose on Mon02/05/21 at 1100, Routine medroxyPROG 2020-0 2021- No [id number] 150mg Univers ESTERone 3-18 ity of (DEPO-PROVE 16:00: 16:59 [place] RA) 00 :00 Medical injection Branch 150 mg medroxyPROG 2020-0 2021- No [id number] 150mg Univers ESTERone 05-29-18 ity of (DEPO-PROVE 16:00: 16:59 [place] RA) 00 :00 Medical injection Branch 150 mg medroxyPROG 2020-0 2021- No [id number] 150mg Univers ESTERone 3-01 05-18 ity of (DEPO-PROVE 16:00: 16:59 [place] RA) 00 :00 Medical injection Branch 150 mg medroxyPROG 2020-0 2021- No [id number] 150mg 150 mg, Univers ESTERone 3-18 Intramuscu ity of (DEPO-PROVE 16:00: 16:59 lar, [place] RA) 00 :00 [id number], Medical injection 4 doses, Branch 150 mg First dose on Mon05/29/20 at 1100, Last dose on Mon02/05/21 at 1100, Routine medroxyPROG 2020-0 2- No 150mg Uni vers ESTERone 3-18 control ity of (DEPO-PROVE 16:00: 16:59 counseling [place] RA) 00 :00 Medical injection Branch 150 mg medroxyPROG 2- No 150mg Uni vers ESTERone 3-19 18 control ity of (DEPO-PROVE 16:00: 16:59 counseling [place] RA) 00 :00 Medical injection Branch 150 mg multivitami Yes Take by Uni vers n (DAILY 3-05 mouth. ity of VITAMINS 16:03: [place] ORAL) 28 Medical Branch multivitami Yes Take by Uni vers n (DAILY 3-05 mouth. ity of VITAMINS 16:03: [place] ORAL) 28 Medical Branch multivitami Yes Take by Uni vers n (DAILY 3-05 mouth. ity of VITAMINS 16:03: [place] ORAL) 28 Medical Branch multivitami Yes Take by Uni vers n (DAILY 3-05 mouth. ity of VITAMINS 16:03: [place] ORAL) 28 Medical Branch multivitami Yes Take by Uni vers n (DAILY 3-05 mouth. ity of VITAMINS 16:03: [place] ORAL) 28 Medical Branch multivitami Yes Take by Uni vers n (DAILY 3-05 mouth. ity of VITAMINS 16:03: [place] ORAL) 28 Medical Branch multivitami Yes Take by Uni vers n (DAILY 3-05 mouth. ity of VITAMINS 16:03: [place] ORAL) 28 Medical Branch multivitami Yes Take by Uni vers n (DAILY 3-05 mouth. ity of VITAMINS 16:03: [place] ORAL) 28 Medical Branch multivitami Yes Take by Uni vers n (DAILY 3-05 mouth. ity of VITAMINS 16:03: [place] ORAL) 28 Medical Branch multivitami Yes Take by Uni vers n (DAILY 3-05 mouth. ity of VITAMINS 16:03: [place] ORAL) 28 Medical Branch multivitami Yes Take by Uni vers n (DAILY 3-05 mouth. ity of VITAMINS 16:03: [place] ORAL) 28 Medical Branch multivitami Yes Take by Uni vers n (DAILY 3-05 mouth. ity of VITAMINS 16:03: [place] ORAL) 28 Medical Branch multivitami Yes Take by Uni vers n (DAILY 3-05 mouth. ity of VITAMINS 10:03: [place] ORAL) 28 Medical Branch multivitami Yes Take by Uni vers n (DAILY 3-05 mouth. ity of VITAMINS 10:03: [place] ORAL) 28 Medical Branch multivitami Yes Take by Uni vers n (DAILY 3-05 mouth. ity of VITAMINS 10:03: [place] ORAL) 28 Medical Branch multivitami Yes Take by Uni vers n (DAILY 3-05 mouth. ity of VITAMINS 10:03: [place] ORAL) 28 Medical Branch multivitami Yes Take by Uni vers n (DAILY 3-05 mouth. ity of VITAMINS 10:03: [place] ORAL) 28 Medical Branch amoxicillin 2020- No [id number] 1{tbl} Take 1 Univers -clavulanat -18 -29 tablet by it y of e 875-125 00:00: 05:59 mouth [place] mg per 00 :00 every 12 Medical tablet (twelve) Branch hours for 10 days. amoxicillin 2020- No [id number] 1{tbl} Take 1 Univers -clavulanat -18 - tablet by it y of e 875-125 00:00: 05:59 mouth [place] mg per 00 :00 every 12 Medical tablet (twelve) Branch hours for 10 days. ampicillin 2019-03 2020- No [id number] 500mg Take 1 Univers 500 mg 0-09 10-20 capsule by ity of capsule 00:00: 04:59 mouth 4 [place] 00 :00 (four) Medical times Branch daily for 10 days. ampicillin 2019-03- No [id number] 500mg Take 1 Univers 500 mg 0-09 10-20 capsule by ity of capsule 00:00: 04:59 mouth 4 [place] 00 :00 (four) Medical times Branch daily for 10 days. ampicillin 2019-03 2020- No [id number] 500mg Take 1 Univers 500 mg 0-09 10-20 capsule by ity of capsule 00:00: 04:59 mouth 4 [place] 00 :00 (four) Medical times Branch daily for 10 days. proMETHazin 2019-03 Yes [id number] 25mg Take 1 Univers e 25 mg 0-07 tablet by ity of tablet 00:00: mouth [place] 00 every 6 Medical (six) Branch hours as needed for Nausea and Vomiting (N/V). PNV 67-iron 2019-03 Yes [id number] 1{each} Take 1 Univers ps-folate 0-07 Each by ity of no.1-dha 00:00: mouth [place] (VITAFOL 00 daily. Medical ULTRA) 29 Branch mg iron- 1 mg-200 mg Cap proMETHazin 2020-1 Yes [id number] 25mg Take 1 Univers e 25 mg 0-07 tablet by ity of tablet 00:00: mouth [place] 00 every 6 Medical (six) Branch hours as needed for Nausea and Vomiting (N/V). PNV 67-iron 2020- Yes [id number] 1{each} Take 1 Univers ps-folate 0-07 Each by ity of no.1-dha 00:00: mouth [place] (VITAFOL 00 daily. Medical ULTRA) 29 Branch mg iron- 1 mg-200 mg Cap proMETHazin 2020-1 Yes [id number] 25mg Take 1 Univers e 25 mg 0-07 tablet by ity of tablet 00:00: mouth [place] 00 every 6 Medical (six) Branch hours as needed for Nausea and Vomiting (N/V). PNV 67-iron 2020- Yes [id number] 1{each} Take 1 Univers ps-folate 0-07 Each by ity of no.1-dha 00:00: mouth [place] (VITAFOL 00 daily. Medical ULTRA) 29 Branch mg iron- 1 mg-200 mg Cap proMETHazin 2020-1 Yes [id number] 25mg Take 1 Univers e 25 mg 0-07 tablet by ity of tablet 00:00: mouth [place] 00 every 6 Medical (six) Branch hours as needed for Nausea and Vomiting (N/V). PNV 67-iron 2020- Yes [id number] 1{each} Take 1 Univers ps-folate 0-07 Each by ity of no.1-dha 00:00: mouth [place] (VITAFOL 00 daily. Medical ULTRA) 29 Branch mg iron- 1 mg-200 mg Cap proMETHazin 2020-1 Yes [id number] 25mg Take 1 Univers e 25 mg 0-07 tablet by ity of tablet 00:00: mouth [place] 00 every 6 Medical (six) Branch hours as needed for Nausea and Vomiting (N/V). PNV 67-iron 2020- Yes [id number] 1{each} Take 1 Univers ps-folate 0-07 Each by ity of no.1-dha 00:00: mouth [place] (VITAFOL 00 daily. Medical ULTRA) 29 Branch mg iron- 1 mg-200 mg Cap proMETHazin 2020-1 Yes [id number] 25mg Take 1 Univers e 25 mg 0-07 tablet by ity of tablet 00:00: mouth [place] 00 every 6 Medical (six) Branch hours as needed for Nausea and Vomiting (N/V). PNV 67-iron 2020- Yes [id number] 1{each} Take 1 Univers ps-folate 0-07 Each by ity of no.1-dha 00:00: mouth [place] (VITAFOL 00 daily. Medical ULTRA) 29 Branch mg iron- 1 mg-200 mg Cap proMETHazin 2020-1 Yes [id number] 25mg Take 1 Univers e 25 mg 0-07 tablet by ity of tablet 00:00: mouth [place] 00 every 6 Medical (six) Branch hours as needed for Nausea and Vomiting (N/V). PNV 67-iron 2020- Yes [id number] 1{each} Take 1 Univers ps-folate 0-07 Each by ity of no.1-dha 00:00: mouth [place] (VITAFOL 00 daily. Medical ULTRA) 29 Branch mg iron- 1 mg-200 mg Cap proMETHazin 2020-1 Yes [id number] 25mg Take 1 Univers e 25 mg 0-07 tablet by ity of tablet 00:00: mouth [place] 00 every 6 Medical (six) Branch hours as needed for Nausea and Vomiting (N/V). PNV 67-iron 2020- Yes [id number] 1{each} Take 1 Univers ps-folate 0-07 Each by ity of no.1-dha 00:00: mouth [place] (VITAFOL 00 daily. Medical ULTRA) 29 Branch mg iron- 1 mg-200 mg Cap proMETHazin 2020-1 Yes [id number] 25mg Take 1 Univers e 25 mg 0-07 tablet by ity of tablet 00:00: mouth [place] 00 every 6 Medical (six) Branch hours as needed for Nausea and Vomiting (N/V). PNV 67-iron 2020- Yes [id number] 1{each} Take 1 Univers ps-folate 0-07 Each by ity of no.1-dha 00:00: mouth [place] (VITAFOL 00 daily. Medical ULTRA) 29 Branch mg iron- 1 mg-200 mg Cap proMETHazin 2020-1 Yes [id number] 25mg Take 1 Univers e 25 mg 0-07 tablet by ity of tablet 00:00: mouth [place] 00 every 6 Medical (six) Branch hours as needed for Nausea and Vomiting (N/V). PNV 67-iron 2020-1 Yes [id number] 1{each} Take 1 Univers ps-folate 0-07 Each by ity of no.1-dha 00:00: mouth [place] (VITAFOL 00 daily. Medical ULTRA) 29 Branch mg iron- 1 mg-200 mg Cap proMETHazin 2020-1 Yes [id number] 25mg Take 1 Univers e 25 mg 0-07 tablet by ity of tablet 00:00: mouth [place] 00 every 6 Medical (six) Branch hours as needed for Nausea and Vomiting (N/V). PNV 67-iron 2020-1 Yes [id number] 1{each} Take 1 Univers ps-folate 0-07 Each by ity of no.1-dha 00:00: mouth [place] (VITAFOL 00 daily. Medical ULTRA) 29 Branch mg iron- 1 mg-200 mg Cap proMETHazin 2020-1 Yes [id number] 25mg Take 1 Univers e 25 mg 0-07 tablet by ity of tablet 00:00: mouth [place] 00 every 6 Medical (six) Branch hours as needed for Nausea and Vomiting (N/V). PNV 67-iron 2020-1 Yes [id number] 1{each} Take 1 Univers ps-folate 0-07 Each by ity of no.1-dha 00:00: mouth [place] (VITAFOL 00 daily. Medical ULTRA) 29 Branch mg iron- 1 mg-200 mg Cap proMETHazin 2020-1 Yes [id number] 25mg Take 1 Univers e 25 mg 0-07 tablet by ity of tablet 00:00: mouth [place] 00 every 6 Medical (six) Branch hours as needed for Nausea and Vomiting (N/V). PNV 67-iron 2020-1 Yes [id number] 1{each} Take 1 Univers ps-folate 0-07 Each by ity of no.1-dha 00:00: mouth [place] (VITAFOL 00 daily. Medical ULTRA) 29 Branch mg iron- 1 mg-200 mg Cap proMETHazin 2020-1 Yes [id number] 25mg Take 1 Univers e 25 mg 0-07 tablet by ity of tablet 00:00: mouth [place] 00 every 6 Medical (six) Branch hours as needed for Nausea and Vomiting (N/V). PNV 67-iron 2020-1 Yes [id number] 1{each} Take 1 Univers ps-folate 0-07 Each by ity of no.1-dha 00:00: mouth [place] (VITAFOL 00 daily. Medical ULTRA) 29 Branch mg iron- 1 mg-200 mg Cap proMETHazin 2020-1 Yes [id number] 25mg Take 1 Univers e 25 mg 0-07 tablet by ity of tablet 00:00: mouth [place] 00 every 6 Medical (six) Branch hours as needed for Nausea and Vomiting (N/V). PNV 67-iron 2020- Yes [id number] 1{each} Take 1 Univers ps-folate 0-07 Each by ity of no.1-dha 00:00: mouth [place] (VITAFOL 00 daily. Medical ULTRA) 29 Branch mg iron- 1 mg-200 mg Cap proMETHazin 2020-1 Yes [id number] 25mg Take 1 Univers e 25 mg 0-07 tablet by ity of tablet 00:00: mouth [place] 00 every 6 Medical (six) Branch hours as needed for Nausea and Vomiting (N/V). PNV 67-iron 2020- Yes [id number] 1{each} Take 1 Univers ps-folate 0-07 Each by ity of no.1-dha 00:00: mouth [place] (VITAFOL 00 daily. Medical ULTRA) 29 Branch mg iron- 1 mg-200 mg Cap proMETHazin 2020-1 Yes [id number] 25mg Take 1 Univers e 25 mg 0-07 tablet by ity of tablet 00:00: mouth [place] 00 every 6 Medical (six) Branch hours as needed for Nausea and Vomiting (N/V). PNV 67-iron 2020- Yes [id number] 1{each} Take 1 Univers ps-folate 0-07 Each by ity of no.1-dha 00:00: mouth [place] (VITAFOL 00 daily. Medical ULTRA) 29 Branch mg iron- 1 mg-200 mg Cap proMETHazin 2020-1 Yes [id number] 25mg Take 1 Univers e 25 mg 0-07 tablet by ity of tablet 00:00: mouth [place] 00 every 6 Medical (six) Branch hours as needed for Nausea and Vomiting (N/V). PNV 67-iron 2020- Yes [id number] 1{each} Take 1 Univers ps-folate 0-07 Each by ity of no.1-dha 00:00: mouth [place] (VITAFOL 00 daily. Medical ULTRA) 29 Branch mg iron- 1 mg-200 mg Cap proMETHazin 2020-1 Yes [id number] 25mg Take 1 Univers e 25 mg 0-07 tablet by ity of tablet 00:00: mouth [place] 00 every 6 Medical (six) Branch hours as needed for Nausea and Vomiting (N/V). PNV 67-iron 2020-1 Yes [id number] 1{each} Take 1 Univers ps-folate 0-07 Each by ity of no.1-dha 00:00: mouth [place] (VITAFOL 00 daily. Medical ULTRA) 29 Branch mg iron- 1 mg-200 mg Cap proMETHazin 2020-1 Yes [id number] 25mg Take 1 Univers e 25 mg 0-07 tablet by ity of tablet 00:00: mouth [place] 00 every 6 Medical (six) Branch hours as needed for Nausea and Vomiting (N/V). PNV 67-iron 2020- Yes [id number] 1{each} Take 1 Univers ps-folate 0-07 Each by ity of no.1-dha 00:00: mouth [place] (VITAFOL 00 daily. Medical ULTRA) 29 Branch mg iron- 1 mg-200 mg Cap proMETHazin 2020-1 Yes [id number] 25mg Take 1 Univers e 25 mg 0-07 tablet by ity of tablet 00:00: mouth [place] 00 every 6 Medical (six) Branch hours as needed for Nausea and Vomiting (N/V). PNV 67-iron 2020- Yes [id number] 1{each} Take 1 Univers ps-folate 0-07 Each by ity of no.1-dha 00:00: mouth [place] (VITAFOL 00 daily. Medical ULTRA) 29 Branch mg iron- 1 mg-200 mg Cap proMETHazin 2020-1 Yes [id number] 25mg Take 1 Univers e 25 mg 0-07 tablet by ity of tablet 00:00: mouth [place] 00 every 6 Medical (six) Branch hours as needed for Nausea and Vomiting (N/V). PNV 67-iron 2020- Yes [id number] 1{each} Take 1 Univers ps-folate 0-07 Each by ity of no.1-dha 00:00: mouth [place] (VITAFOL 00 daily. Medical ULTRA) 29 Branch mg iron- 1 mg-200 mg Cap proMETHazin 2020-1 Yes [id number] 25mg Take 1 Univers e 25 mg 0-07 tablet by ity of tablet 00:00: mouth [place] 00 every 6 Medical (six) Branch hours as needed for Nausea and Vomiting (N/V). PNV 67-iron 2020-1 Yes [id number] 1{each} Take 1 Univers ps-folate 0-07 Each by ity of no.1-dha 00:00: mouth [place] (VITAFOL 00 daily. Medical ULTRA) 29 Branch mg iron- 1 mg-200 mg Cap proMETHazin 2020-1 Yes [id number] 25mg Take 1 Univers e 25 mg 0-07 tablet by ity of tablet 00:00: mouth [place] 00 every 6 Medical (six) Branch hours as needed for Nausea and Vomiting (N/V). PNV 67-iron 2020- Yes [id number] 1{each} Take 1 Univers ps-folate 0-07 Each by ity of no.1-dha 00:00: mouth [place] (VITAFOL 00 daily. Medical ULTRA) 29 Branch mg iron- 1 mg-200 mg Cap proMETHazin 2020-1 Yes [id number] 25mg Take 1 Univers e 25 mg 0-07 tablet by ity of tablet 00:00: mouth [place] 00 every 6 Medical (six) Branch hours as needed for Nausea and Vomiting (N/V). PNV 67-iron 2020- Yes [id number] 1{each} Take 1 Univers ps-folate 0-07 Each by ity of no.1-dha 00:00: mouth [place] (VITAFOL 00 daily. Medical ULTRA) 29 Branch mg iron- 1 mg-200 mg Cap proMETHazin 2020-1 Yes [id number] 25mg Take 1 Univers e 25 mg 0-07 tablet by ity of tablet 00:00: mouth [place] 00 every 6 Medical (six) Branch hours as needed for Nausea and Vomiting (N/V). PNV 67-iron 2020-1 Yes [id number] 1{each} Take 1 Univers ps-folate 0-07 Each by ity of no.1-dha 00:00: mouth [place] (VITAFOL 00 daily. Medical ULTRA) 29 Branch mg iron- 1 mg-200 mg Cap proMETHazin 2020-1 Yes [id number] 25mg Take 1 Univers e 25 mg 0-07 tablet by ity of tablet 00:00: mouth [place] 00 every 6 Medical (six) Branch hours as needed for Nausea and Vomiting (N/V). PNV 67-iron 2020-1 Yes [id number] 1{each} Take 1 Univers ps-folate 0-07 Each by ity of no.1-dha 00:00: mouth [place] (VITAFOL 00 daily. Medical ULTRA) 29 Branch mg iron- 1 mg-200 mg Cap proMETHazin 2019-03- No [id number] 25mg Take 1 Univers e 25 mg 0-07 03-05 tablet by ity of tablet 00:00: 00:00 mouth [place] 00 :00 every 6 Medical (six) Branch hours as needed for Nausea and Vomiting (N/V). PNV 67-iron 2019-03- No [id number] 1{each} Take 1 Univers ps-folate 0-07 03-05 Each by ity of no.1-dha 00:00: 00:00 mouth [place] (VITAFOL 00 :00 daily. Medical ULTRA) 29 Branch mg iron- 1 mg-200 mg Cap proMETHazin 2019-03- No [id number] 25mg Take 1 Univers e 25 mg 0-07 03-05 tablet by ity of tablet 00:00: 00:00 mouth [place] 00 :00 every 6 Medical (six) Branch hours as needed for Nausea and Vomiting (N/V). PNV 67-iron 2019-03- No [id number] 1{each} Take 1 Univers ps-folate 0-07 03-05 Each by ity of no.1-dha 00:00: 00:00 mouth [place] (VITAFOL 00 :00 daily. Medical ULTRA) 29 Branch mg iron- 1 mg-200 mg Cap proMETHazin 2019-03- No [id number] 25mg Take 1 Univers e 25 mg 0-07 03-05 tablet by ity of tablet 00:00: 00:00 mouth [place] 00 :00 every 6 Medical (six) Branch hours as needed for Nausea and Vomiting (N/V). PNV 67-iron 2019-03- No [id number] 1{each} Take 1 Univers ps-folate 0-07 03-05 Each by ity of no.1-dha 00:00: 00:00 mouth [place] (VITAFOL 00 :00 daily. Medical ULTRA) 29 Branch mg iron- 1 mg-200 mg Cap azithromyci 2019- No [id number] 1000mg Take 2 Univers n 8-31 09-01 tablets by ity of (ZITHROMAX) 00:00: 04:59 mouth once [place] 500 mg 00 :00 now for 1 Medical tablet dose. Branch No known No Univers medications [facility] No known No Univers medications [facility] No known No Univers medications [facility] Immunizations Ordered Immunization Filled Date Status Comments Sour ce Name Immunization Name Meningococcal 2021-10-13 Completed University [facility] 00:00:00 [place] Med ical (groups A, C, Y and Branc h W-135) conjugate vaccine ([id number]) Influenza Virus 2019-12-18 Completed Universit y of Vaccine Quad .5 mL IM 00:00:00 [place] Medical 6+ MO Branch Influenza Virus 2019-12-18 Completed Universit y of Vaccine Quad .5 mL IM 00:00:00 [place] [facility] 6+ MO Branch Influenza Virus 2019-12-18 Completed Universit y of Vaccine Quad .5 mL IM 00:00:00 [place] [facility] 6+ MO Branch Influenza Virus 2019-12-18 Completed Universit y of Vaccine Quad .5 mL IM 00:00:00 [place] [facility] 6+ MO Branch Influenza Virus 2019-12-18 Completed Universit y of Vaccine Quad .5 mL IM 00:00:00 [place] [facility] 6+ MO Branch Influenza Virus 2019-12-18 Completed Universit y of Vaccine Quad .5 mL IM 00:00:00 [place] [facility] 6+ MO Branch Influenza Virus 2019-12-18 Completed Universit y of Vaccine Quad .5 mL IM 00:00:00 [place] [facility] 6+ MO Branch Influenza Virus 2019-12-18 Completed Universit y of Vaccine Quad .5 mL IM 00:00:00 [place] [facility] 6+ MO Branch Influenza Virus 2019-12-18 Completed Universit y of Vaccine Quad .5 mL IM 00:00:00 [place] [facility] 6+ MO Branch Influenza Virus 2019-12-18 Completed Universit y of Vaccine Quad .5 mL IM 00:00:00 [place] [facility] 6+ MO Branch Influenza Virus 2019-12-18 Completed Universit y of Vaccine Quad .5 mL IM 00:00:00 [facility] Influenza Virus 2019-12-18 Completed [facility] .5 mL IM 00:00:00 [facility] Influenza Virus 2019-12-18 Completed [facility] .5 mL IM 00:00:00 [facility] Influenza Virus 2019-12-18 Completed [facility] .5 mL IM 00:00:00 [facility] Influenza Virus 2019-12-18 Completed [facility] .5 mL IM 00:00:00 [facility] Influenza Virus 2019-12-18 Completed [facility] .5 mL IM 00:00:00 [facility] Influenza Virus 2019-12-18 Completed [facility] .5 mL IM 00:00:00 [facility] Influenza Virus 2019-12-18 Completed [facility] .5 mL IM 00:00:00 [facility] Influenza Virus 2019-12-18 Completed [facility] .5 mL IM 00:00:00 [facility] Influenza Virus 2019-12-18 Completed [facility] .5 mL IM 00:00:00 [facility] Influenza Virus 2019-12-18 Completed [facility] .5 mL IM 00:00:00 [facility] Influenza Virus 2019-12-18 Completed [facility] .5 mL IM 00:00:00 [facility] Influenza Virus 2019-12-18 Completed [facility] .5 mL IM 00:00:00 [facility] Influenza Virus 2019-12-18 Completed [facility] .5 mL IM 00:00:00 [facility] Influenza Virus 2019-12-18 Completed [facility] .5 mL IM 00:00:00 [facility] Influenza Virus 2019-12-18 Completed [facility] .5 mL IM 00:00:00 [facility] Influenza Virus 2019-12-18 Completed [facility] .5 mL IM 00:00:00 [facility] Influenza Virus 2019-12-18 Completed [facility] .5 mL IM 00:00:00 [facility] Influenza Virus 2019-12-18 Completed [facility] .5 mL IM 00:00:00 [facility] Influenza Virus 2019-12-18 Completed [facility] .5 mL IM 00:00:00 [facility] Influenza Virus 2019-12-18 Completed [facility] .5 mL IM 00:00:00 [facility] Influenza Virus 2019-12-18 Completed [facility] .5 mL IM 00:00:00 [facility] Influenza Virus 2019-12-18 Completed [facility] .5 mL IM 00:00:00 [facility] Influenza Virus 2019-12-18 Completed [facility] .5 mL IM 00:00:00 [facility] Influenza Virus 2019-12-18 Completed [facility] .5 mL IM 00:00:00 [facility] Influenza Virus 2019-12-18 Completed [facility] .5 mL IM 00:00:00 [facility] Influenza Virus 2019-12-18 Completed [facility] .5 mL IM 00:00:00 [facility] Influenza Virus 2019-12-18 Completed [facility] .5 mL IM 00:00:00 [facility] Influenza Virus 2019-12-18 Completed [facility] .5 mL IM 00:00:00 [facility] Influenza Virus 2019-12-18 Completed [facility] .5 mL IM 00:00:00 [facility] Influenza Virus 2019-12-18 Completed [facility] .5 mL IM 00:00:00 [facility] Influenza Virus 2019-12-18 Completed [facility] .5 mL IM 00:00:00 [facility] Meningococcal Vaccine 2019-02-13 Completed [facility] 00:00:00 [facility] Meningococcal Vaccine 2019-02-13 Completed [facility] of 00:00:00 [facility] Meningococcal Vaccine 2019-02-13 Completed [facility] of 00:00:00 [facility] Meningococcal Vaccine 2019-02-13 Completed [facility] of 00:00:00 [facility] Meningococcal Vaccine 2019-02-13 Completed [facility] 00:00:00 [facility] Meningococcal Vaccine 2019-02-13 Completed [facility] 00:00:00 [facility] Meningococcal Vaccine 2019-02-13 Completed [facility] 00:00:00 [facility] Meningococcal Vaccine 2019-02-13 Completed [facility] 00:00:00 [facility] Meningococcal Vaccine 2019-02-13 Completed [facility] 00:00:00 [facility] Meningococcal Vaccine 2019-02-13 Completed [facility] 00:00:00 [facility] Meningococcal Vaccine 2019-02-13 Completed [facility] 00:00:00 [facility] Meningococcal Vaccine 2019-02-13 Completed [facility] 00:00:00 [facility] Meningococcal Vaccine 2019-02-13 Completed [facility] 00:00:00 [facility] Meningococcal Vaccine 2019-02-13 Completed [facility] 00:00:00 [facility] Meningococcal Vaccine 2019-02-13 Completed [facility] 00:00:00 [facility] Meningococcal Vaccine 2019-02-13 Completed [facility] 00:00:00 [facility] Meningococcal Vaccine 2019-02-13 Completed [facility] vers[facility] 00:00:00 [facility] HPV 2014-01-02 [...] Branch HPV 2014-01-02 Completed [facility] of 00:00:00 [facility] HPV 2014-01-02 Completed [facility] 00:00:00 [facility] TDAP 2012-12-25 Completed [facility] 00:00:00 [facility] HPV 2012-12-25 Completed [facility] 00:00:00 [facility] Meningococcal Vaccine 2012-12-25 Completed [facility] versity of 00:00:00 [facility] TDAP 2012-12-25 Completed [facility] 00:00:00 [facility] HPV 2012-12-25 Completed [facility] 00:00:00 [facility] Meningococcal Vaccine 2012-12-25 Completed [facility] vers[facility] of 00:00:00 [facility] TDAP 2012-12-25 Completed [facility] 00:00:00 [facility] HPV 2012-12-25 Completed [facility] 00:00:00 [facility] Meningococcal Vaccine 2012-12-25 Completed [facility] vers[facility] of 00:00:00 [facility] TDAP 2012-12-25 Completed [facility] 00:00:00 [facility] HPV 2012-12-25 Completed [facility] 00:00:00 [facility] Meningococcal Vaccine 2012-12-25 Completed [facility] vers[facility] of 00:00:00 [facility] TDAP 2012-12-25 Completed [facility] 00:00:00 [facility] HPV 2012-12-25 Completed [facility] 00:00:00 [facility] Meningococcal Vaccine 2012-12-25 Completed [facility] vers[facility] of 00:00:00 [facility] TDAP 2012-12-25 Completed [facility] 00:00:00 [facility] HPV 2012-12-25 Completed [facility] 00:00:00 [facility] Meningococcal Vaccine 2012-12-25 Completed [facility] vers[facility] of 00:00:00 [facility] TDAP 2012-12-25 Completed [facility] 00:00:00 [facility] HPV 2012-12-25 Completed [facility] 00:00:00 [facility] Meningococcal Vaccine 2012-12-25 Completed [facility] vers[facility] 00:00:00 [facility] TDAP 2012-12-25 Completed [facility] 00:00:00 [facility] HPV 2012-12-25 Completed [facility] 00:00:00 [facility] Meningococcal Vaccine 2012-12-25 Completed [facility] vers[facility] of 00:00:00 [facility] TDAP 2012-12-25 Completed [facility] 00:00:00 [facility] HPV 2012-12-25 Completed [facility] of 00:00:00 [facility] HPV 2012-12-25 Completed [facility] of 00:00:00 [facility] Meningococcal Vaccine 2012-12-25 Completed [facility] versity of 00:00:00 [facility] TDAP 2012-12-25 Completed [facility] of 00:00:00 [facility] HPV 2012-12-25 Completed [facility] of 00:00:00 [facility] Meningococcal Vaccine 2012-12-25 Completed [facility] versity of 00:00:00 [facility] TDAP 2012-12-25 Completed [facility] of 00:00:00 [facility] HPV 2012-12-25 Completed [facility] of 00:00:00 [facility] Meningococcal Vaccine 2012-12-25 Completed [facility] versity of 00:00:00 [facility] TDAP 2012-12-25 Completed [facility] of 00:00:00 [facility] HPV 2012-12-25 Completed [facility] of 00:00:00 [facility] Meningococcal Vaccine 2012-12-25 Completed [facility] versity of 00:00:00 [facility] TDAP 2012-12-25 Completed [facility] of 00:00:00 [facility] HPV 2012-12-25 Completed [facility] of 00:00:00 [facility] Meningococcal Vaccine 2012-12-25 Completed [facility] versity of 00:00:00 [facility] Meningococcal Vaccine 2012-12-25 Completed [facility] versity of 00:00:00 [facility] TDAP 2012-12-25 Completed [facility] of 00:00:00 [facility] HPV 2012-12-25 Completed [facility] of 00:00:00 [facility] Meningococcal Vaccine 2012-12-25 Completed [facility] versity of 00:00:00 [facility] TDAP 2012-12-25 Completed [facility] of 00:00:00 [facility] HPV 2012-12-25 Completed [facility] of 00:00:00 [facility] Meningococcal Vaccine 2012-12-25 Completed [facility] versity of 00:00:00 [facility] TDAP 2012-12-25 Completed [facility] of 00:00:00 [facility] TDAP 2012-12-25 Completed [facility] of 00:00:00 [facility] HPV 2012-12-25 Completed [facility] of 00:00:00 [facility] Meningococcal Vaccine 2012-12-25 Completed [facility] versity of 00:00:00 [facility] Varicella 2006-05-10 Completed [facility] of (varivax)(chicken pox) 00:00:00 [facility] HEPATITIS A 2006-05-10 Completed [facility] of 00:00:00 [facility] Varicella 2006-05-10 Completed [facility] of (varivax)(chicken pox) 00:00:00 [facility] HEPATITIS A 2006-05-10 Completed [facility] of 00:00:00 [facility] Varicella 2006-05-10 Completed [facility] of (varivax)(chicken pox) 00:00:00 [facility] HEPATITIS A 2006-05-10 Completed [facility] of 00:00:00 [facility] Varicella 2006-05-10 Completed [facility] of (varivax)(chicken pox) 00:00:00 [facility] HEPATITIS A 2006-05-10 Completed [facility] of 00:00:00 [facility] Varicella 2006-05-10 Completed [facility] of (varivax)(chicken pox) 00:00:00 [facility] HEPATITIS A 2006-05-10 Completed [facility] of 00:00:00 [facility] Varicella 2006-05-10 Completed [facility] of (varivax)(chicken pox) 00:00:00 [facility] HEPATITIS A 2006-05-10 Completed [facility] of 00:00:00 [facility] Varicella 2006-05-10 Completed [facility] of (varivax)(chicken pox) 00:00:00 [facility] HEPATITIS A 2006-05-10 Completed [facility] of 00:00:00 [facility] Varicella 2006-05-10 Completed [facility] of (varivax)(chicken pox) 00:00:00 [facility] HEPATITIS A 2006-05-10 Completed [facility] of 00:00:00 [facility] Varicella 2006-05-10 Completed [facility] of (varivax)(chicken pox) 00:00:00 [facility] HEPATITIS A 2006-05-10 Completed [facility] of 00:00:00 [facility] Varicella 2006-05-10 Completed [facility] of (varivax)(chicken pox) 00:00:00 [facility] HEPATITIS A 2006-05-10 Completed [facility] of 00:00:00 [facility] Varicella 2006-05-10 Completed [facility] of (varivax)(chicken pox) 00:00:00 [facility] HEPATITIS A 2006-05-10 Completed [facility] of 00:00:00 [facility] Varicella 2006-05-10 Completed [facility] of (varivax)(chicken pox) 00:00:00 [facility] HEPATITIS A 2006-05-10 Completed [facility] of 00:00:00 [facility] HEPATITIS A 2006-05-10 Completed [facility] of 00:00:00 [facility] Varicella 2006-05-10 Completed [facility] of (varivax)(chicken pox) 00:00:00 [facility] HEPATITIS A 2006-05-10 Completed [facility] of 00:00:00 [facility] Varicella 2006-05-10 Completed [facility] of (varivax)(chicken pox) 00:00:00 [facility] HEPATITIS A 2006-05-10 Completed [facility] of 00:00:00 [facility] Varicella 2006-05-10 Completed [facility] of (varivax)(chicken pox) 00:00:00 [facility] HEPATITIS A 2006-05-10 Completed [facility] of 00:00:00 [facility] Varicella 2006-05-10 Completed [facility] of (varivax)(chicken pox) 00:00:00 [facility] Varicella 2006-05-10 Completed [facility] of (varivax)(chicken pox) 00:00:00 [facility] HEPATITIS A 2006-05-10 Completed [facility] of 00:00:00 [facility] MMR 2005-10-12 Completed [facility] of 00:00:00 [facility] Polio (IPV/OPV) 2005-10-12 Completed [facility] 00:00:00 [facility] DTP 2005-10-12 Completed [facility] of 00:00:00 [facility] HEPATITIS A 2005-10-12 Completed [facility] of 00:00:00 [facility] MMR 2005-10-12 Completed [facility] of 00:00:00 [facility] Polio (IPV/OPV) 2005-10-12 Completed [facility] 00:00:00 [facility] DTP 2005-10-12 Completed [facility] of 00:00:00 [facility] HEPATITIS A 2005-10-12 Completed [facility] of 00:00:00 [facility] DTP 2005-10-12 Completed [facility] of 00:00:00 [facility] HEPATITIS A 2005-10-12 Completed [facility] of 00:00:00 [facility] MMR 2005-10-12 Completed [facility] of 00:00:00 [facility] Polio (IPV/OPV) 2005-10-12 Completed [facility] 00:00:00 [facility] DTP 2005-10-12 Completed [facility] 00:00:00 [facility] HEPATITIS A 2005-10-12 Completed [facility] 00:00:00 [facility] MMR 2005-10-12 Completed [facility] 00:00:00 [facility] Polio (IPV/OPV) 2005-10-12 Completed [facility] 00:00:00 [facility] DTP 2005-10-12 Completed [facility] 00:00:00 [facility] HEPATITIS A 2005-10-12 Completed [facility] 00:00:00 [facility] MMR 2005-10-12 Completed [facility] 00:00:00 [facility] Polio (IPV/OPV) 2005-10-12 Completed [facility] 00:00:00 [facility] DTP 2005-10-12 Completed [facility] 00:00:00 [facility] HEPATITIS A 2005-10-12 Completed [facility] 00:00:00 [facility] MMR 2005-10-12 Completed [facility] 00:00:00 [facility] Polio (IPV/OPV) 2005-10-12 Completed [facility] 00:00:00 [facility] DTP 2005-10-12 Completed [facility] of 00:00:00 [facility] HEPATITIS A 2005-10-12 Completed [facility] 00:00:00 [facility] MMR 2005-10-12 Completed [facility] 00:00:00 [facility] Polio (IPV/OPV) 2005-10-12 Completed [facility] 00:00:00 [facility] DTP 2005-10-12 Completed [facility] 00:00:00 [facility] HEPATITIS A 2005-10-12 Completed [facility] 00:00:00 [facility] MMR 2005-10-12 Completed [facility] 00:00:00 [facility] Polio (IPV/OPV) 2005-10-12 Completed [facility] 00:00:00 [facility] DTP 2005-10-12 Completed [facility] 00:00:00 [facility] HEPATITIS A 2005-10-12 Completed [facility] 00:00:00 [facility] MMR 2005-10-12 Completed [facility] 00:00:00 [facility] Polio (IPV/OPV) 2005-10-12 Completed [facility] 00:00:00 [facility] DTP 2005-10-12 Completed [facility] 00:00:00 [facility] HEPATITIS A 2005-10-12 Completed [facility] 00:00:00 [facility] MMR 2005-10-12 Completed [facility] 00:00:00 [facility] Polio (IPV/OPV) 2005-10-12 Completed [facility] 00:00:00 [facility] DTP 2005-10-12 Completed [facility] 00:00:00 [facility] DTP 2005-10-12 Completed [facility] of 00:00:00 [facility] HEPATITIS A 2005-10-12 Completed [facility] 00:00:00 [facility] MMR 2005-10-12 Completed [facility] 00:00:00 [facility] Polio (IPV/OPV) 2005-10-12 Completed [facility] 00:00:00 [facility] DTP 2005-10-12 Completed [facility] 00:00:00 [facility] HEPATITIS A 2005-10-12 Completed [facility] 00:00:00 [facility] HEPATITIS A 2005-10-12 Completed [facility] of 00:00:00 [facility] MMR 2005-10-12 Completed [facility] of 00:00:00 [facility] Polio (IPV/OPV) 2005-10-12 Completed [facility] 00:00:00 [facility] DTP 2005-10-12 Completed [facility] 00:00:00 [facility] HEPATITIS A 2005-10-12 Completed [facility] 00:00:00 [facility] MMR 2005-10-12 Completed [facility] 00:00:00 [facility] Polio (IPV/OPV) 2005-10-12 Completed [facility] 00:00:00 [facility] DTP 2005-10-12 Completed [facility] of 00:00:00 [facility] HEPATITIS A 2005-10-12 Completed [facility] 00:00:00 [facility] MMR 2005-10-12 Completed [facility] 00:00:00 [facility] MMR 2005-10-12 Completed [facility] 00:00:00 [facility] Polio (IPV/OPV) 2005-10-12 Completed [facility] 00:00:00 [facility] DTP 2005-10-12 Completed [facility] 00:00:00 [facility] HEPATITIS A 2005-10-12 Completed [facility] of 00:00:00 [facility] MMR 2005-10-12 Completed [facility] 00:00:00 [facility] Polio (IPV/OPV) 2005-10-12 Completed [facility] 00:00:00 [facility] Polio (IPV/OPV) 2005-10-12 Completed [facility] 00:00:00 [facility] DTP 2005-10-12 Completed [facility] of 00:00:00 [facility] HEPATITIS A 2005-10-12 Completed [facility] of 00:00:00 [facility] MMR 2005-10-12 Completed [facility] of 00:00:00 [facility] Polio (IPV/OPV) 2005-10-12 Completed [facility] 00:00:00 [facility] DTP 2003-10-27 Completed [facility] of 00:00:00 [facility] HIB 4 Dose Schedule 2003-10-27 Completed Unive rsity of 00:00:00 [facility] DTP 2003-10-27 Completed [facility] of 00:00:00 [facility] HIB 4 Dose Schedule 2003-10-27 Completed Unive rsity of 00:00:00 [facility] DTP 2003-10-27 Completed [facility] of 00:00:00 [facility] HIB 4 Dose Schedule 2003-10-27 Completed Unive rsity of 00:00:00 [facility] DTP 2003-10-27 Completed [facility] of 00:00:00 [facility] HIB 4 Dose Schedule 2003-10-27 Completed Unive rsity of 00:00:00 [facility] DTP 2003-10-27 Completed [facility] of 00:00:00 [facility] HIB 4 Dose Schedule 2003-10-27 Completed [facility]ive rsity of 00:00:00 [facility] DTP 2003-10-27 Completed [facility] of 00:00:00 [facility] HIB 4 Dose Schedule 2003-10-27 Completed Unive rsity of 00:00:00 [facility] DTP 2003-10-27 Completed [facility] of 00:00:00 [facility] HIB 4 Dose Schedule 2003-10-27 Completed Unive rsity of 00:00:00 [facility] DTP 2003-10-27 Completed [facility] of 00:00:00 [facility] HIB 4 Dose Schedule 2003-10-27 Completed Unive rsity of 00:00:00 [facility] DTP 2003-10-27 Completed [facility] of 00:00:00 [facility] HIB 4 Dose Schedule 2003-10-27 Completed Unive rsity of 00:00:00 [facility] DTP 2003-10-27 Completed [facility] of 00:00:00 [facility] HIB 4 Dose Schedule 2003-10-27 Completed Unive rsity of 00:00:00 [facility] DTP 2003-10-27 Completed [facility] of 00:00:00 [facility] DTP 2003-10-27 Completed [facility] of 00:00:00 [facility] HIB 4 Dose Schedule 2003-10-27 Completed Unive rsity of 00:00:00 [facility] HIB 4 Dose Schedule 2003-10-27 Completed Unive rsity of 00:00:00 [facility] DTP 2003-10-27 Completed [facility] of 00:00:00 [facility] HIB 4 Dose Schedule 2003-10-27 Completed Unive rsity of 00:00:00 [facility] DTP 2003-10-27 Completed [facility] of 00:00:00 [facility] HIB 4 Dose Schedule 2003-10-27 Completed Unive rsity of 00:00:00 [facility] DTP 2003-10-27 Completed [facility] of 00:00:00 [facility] HIB 4 Dose Schedule 2003-10-27 Completed Unive rsity of 00:00:00 [facility] DTP 2003-10-27 Completed [facility] of 00:00:00 [facility] HIB 4 Dose Schedule 2003-10-27 Completed Unive rsity of 00:00:00 [facility] DTP 2003-10-27 Completed [facility] of 00:00:00 [facility] HIB 4 Dose Schedule 2003-10-27 Completed Unive rsity of 00:00:00 [facility] Varicella 2001-10-10 Completed University of (varivax)(chicken pox) 00:00:00 [facility] Pneumococcal 7 2001-10-10 Completed University of Conjugate, PCV7 00:00:00 [facility] (Prevnar7) [facility] MMR 2001-10-10 Completed [facility] of 00:00:00 [facility] Polio (IPV/OPV) 2001-10-10 Completed [facility] 00:00:00 [facility] Varicella 2001-10-10 Completed [facility] of (varivax)(chicken pox) 00:00:00 [facility] Pneumococcal 7 2001-10-10 Completed [facility] of Conjugate, PCV7 00:00:00 [facility] (Prevnar7) [facility] MMR 2001-10-10 Completed [facility] of 00:00:00 [facility] Polio (IPV/OPV) 2001-10-10 Completed [facility] 00:00:00 [facility] Varicella 2001-10-10 Completed [facility] of (varivax)(chicken pox) 00:00:00 [facility] Pneumococcal 7 2001-10-10 Completed [facility] of Conjugate, PCV7 00:00:00 [facility] (Pre[facility]ar7) [facility] 2001-10-10 Completed [facility] of 00:00:00 [facility] Polio (IPV/OPV) 2001-10-10 Completed [facility] 00:00:00 [facility] Varicella 2001-10-10 Completed [facility] of (varivax)(chicken pox) 00:00:00 [facility] Pneumococcal 7 2001-10-10 Completed [facility] of Conjugate, PCV7 00:00:00 [facility] (Prevnar7) [facility] 2001-10-10 Completed [facility] of 00:00:00 [facility] Polio (IPV/OPV) 2001-10-10 Completed [facility] 00:00:00 [facility] Varicella 2001-10-10 Completed [facility] of (varivax)(chicken pox) 00:00:00 [facility] Pneumococcal 7 2001-10-10 Completed [facility] of Conjugate, PCV7 00:00:00 [facility] (Prevnar7) [facility] 2001-10-10 Completed [facility] of 00:00:00 [facility] Polio (IPV/OPV) 2001-10-10 Completed [facility] 00:00:00 [facility] Varicella 2001-10-10 Completed [facility] of (varivax)(chicken pox) 00:00:00 [facility] Pneumococcal 7 2001-10-10 Completed [facility] of Conjugate, PCV7 00:00:00 [facility] (Prevnar7) [facility] 2001-10-10 Completed [facility] of 00:00:00 [facility] Polio (IPV/OPV) 2001-10-10 Completed [facility] 00:00:00 [facility] Varicella 2001-10-10 Completed University of (varivax)(chicken pox) 00:00:00 [facility] Pneumococcal 7 2001-10-10 Completed University of Conjugate, PCV7 00:00:00 [facility] [place] [facility] (Pre[facility]) [facility] 2001-10-10 Completed [facility] of 00:00:00 [facility] Polio (IPV/OPV) 2001-10-10 Completed [facility]it y of 00:00:00 [facility] Varicella 2001-10-10 Completed [facility] of (varivax)(chicken pox) 00:00:00 [facility] Pneumococcal 7 2001-10-10 Completed [facility] of Conjugate, PCV7 00:00:00 [facility] [place] [facility] (Prevnar7) [facility] MMR 2001-10-10 Completed University of 00:00:00 [facility] Polio (IPV/OPV) 2001-10-10 Completed [facility]it y of 00:00:00 [facility] Varicella 2001-10-10 Completed [facility] of (varivax)(chicken pox) 00:00:00 [facility] Pneumococcal 7 2001-10-10 Completed [facility] of Conjugate, PCV7 00:00:00 [facility] (Prevnar7) [facility] MMR 2001-10-10 Completed [facility] of 00:00:00 [facility] Polio (IPV/OPV) 2001-10-10 Completed [facility]it y of 00:00:00 [facility] Varicella 2001-10-10 Completed [facility] of (varivax)(chicken pox) 00:00:00 [facility] Pneumococcal 7 2001-10-10 Completed [facility] Conjugate, PCV7 00:00:00 [facility] [place] [facility] (Prevnar7) [facility] MMR 2001-10-10 Completed [facility] of 00:00:00 [facility] MMR 2001-10-10 Completed University of 00:00:00 [facility] Polio (IPV/OPV) 2001-10-10 Completed [facility]it y of 00:00:00 [facility] Varicella 2001-10-10 Completed [facility] of (varivax)(chicken pox) 00:00:00 [facility] Pneumococcal 7 2001-10-10 Completed [facility] of Conjugate, PCV7 00:00:00 [facility] [place] [facility] (Prevnar7) [facility] Polio (IPV/OPV) 2001-10-10 Completed [facility]it y of 00:00:00 [facility] MMR 2001-10-10 Completed [facility] of 00:00:00 [facility] Polio (IPV/OPV) 2001-10-10 Completed [facility]it y of 00:00:00 [facility] Varicella 2001-10-10 Completed [facility] of (varivax)(chicken pox) 00:00:00 [facility] Pneumococcal 7 2001-10-10 Completed [facility] of Conjugate, PCV7 00:00:00 [facility] [place] [facility] (Prevnar7) [facility] Varicella 2001-10-10 Completed [facility] of (varivax)(chicken pox) 00:00:00 [facility] Pneumococcal 7 2001-10-10 Completed [facility] Conjugate, PCV7 00:00:00 [facility] [place] [facility] (Prevnar7) [facility] MMR 2001-10-10 Completed [facility] of 00:00:00 [facility] Polio (IPV/OPV) 2001-10-10 Completed [facility]it y of 00:00:00 [facility] Polio (IPV/OPV) 2001-10-10 Completed [facility]it y of 00:00:00 [facility] Varicella 2001-10-10 Completed [facility] of (varivax)(chicken pox) 00:00:00 [facility] Pneumococcal 7 2001-10-10 Completed [facility] of Conjugate, PCV7 00:00:00 [facility] (Prevnar7) Branch [facility] 2001-10-10 Completed University of 00:00:00 [facility] Polio (IPV/OPV) 2001-10-10 Completed Universit y of 00:00:00 [facility] Varicella 2001-10-10 Completed [facility] of (varivax)(chicken pox) 00:00:00 [facility] Pneumococcal 7 2001-10-10 Completed [facility] of Conjugate, PCV7 00:00:00 [facility] [place] [facility] (Prevnar7) [facility] MMR 2001-10-10 Completed [facility] of 00:00:00 [facility] Varicella 2001-10-10 Completed [facility] of (varivax)(chicken pox) 00:00:00 [facility] Pneumococcal 7 2001-10-10 Completed [facility] of Conjugate, PCV7 00:00:00 [facility] [place] [facility] (Prevnar7) [facility] MMR 2001-10-10 Completed [facility] of 00:00:00 [facility] Polio (IPV/OPV) 2001-10-10 Completed [facility]it y of 00:00:00 [facility] Varicella 2001-10-10 Completed [facility] of (varivax)(chicken pox) 00:00:00 [facility] Pneumococcal 7 2001-10-10 Completed [facility] of Conjugate, PCV7 00:00:00 [facility] [place] [facility] (Prevnar7) [facility] 2001-10-10 Completed [facility] of 00:00:00 [facility] Polio (IPV/OPV) 2001-10-10 Completed [facility]it y of 00:00:00 [facility] Hep B, [...] 2001-07-06 Completed Unive rsity of Dosage 00:00:00 [facility] Hep B, Adol or Pedi 2001-07-06 Completed Unive rsity of Dosage 00:00:00 [facility] Hep B, Adol or Pedi 2001-07-06 Completed Unive rsity of Dosage 00:00:00 [facility] Hep B, Adol or Pedi [...] 2001-07-06 Completed Unive rsity of Dosage 00:00:00 [facility] Hep B, Adol or Pedi 2001-07-06 Completed [facility]ive rsity of Dosage 00:00:00 [facility] HIB 4 Dose Schedule 2001-04-10 Completed Unive rsity of 00:00:00 [facility] DTP 2001-04-10 Completed [facility] of 00:00:00 [facility] HIB 4 Dose Schedule 2001-04-10 Completed Unive rsity of 00:00:00 [facility] DTP 2001-04-10 Completed [facility] of 00:00:00 [facility] HIB 4 Dose Schedule 2001-04-10 Completed Unive rsity of 00:00:00 [facility] DTP 2001-04-10 Completed [facility] of 00:00:00 [facility] HIB 4 Dose Schedule 2001-04-10 Completed Unive rsity of 00:00:00 [facility] DTP 2001-04-10 Completed [facility] of 00:00:00 [facility] HIB 4 Dose Schedule 2001-04-10 Completed Unive rsity of 00:00:00 [facility] DTP 2001-04-10 Completed [facility] of 00:00:00 [facility] HIB 4 Dose Schedule 2001-04-10 Completed Unive rsity of 00:00:00 [facility] DTP 2001-04-10 Completed [facility] of 00:00:00 [facility] HIB 4 Dose Schedule 2001-04-10 Completed Unive rsity of 00:00:00 [facility] DTP 2001-04-10 Completed [facility] of 00:00:00 [facility] HIB 4 Dose Schedule 2001-04-10 Completed Unive rsity of 00:00:00 [facility] DTP 2001-04-10 Completed [facility] of 00:00:00 [facility] HIB 4 Dose Schedule 2001-04-10 Completed Unive rsity of 00:00:00 [facility] DTP 2001-04-10 Completed [facility] of 00:00:00 [facility] HIB 4 Dose Schedule 2001-04-10 Completed Unive rsity of 00:00:00 [facility] DTP 2001-04-10 Completed [facility] of 00:00:00 [facility] DTP 2001-04-10 Completed [facility] of 00:00:00 [facility] HIB 4 Dose Schedule 2001-04-10 Completed Unive rsity of 00:00:00 [facility] HIB 4 Dose Schedule 2001-04-10 Completed Unive rsity of 00:00:00 [facility] DTP 2001-04-10 Completed [facility] of 00:00:00 [facility] HIB 4 Dose Schedule 2001-04-10 Completed Unive rsity of 00:00:00 [facility] DTP 2001-04-10 Completed [facility] of 00:00:00 [facility] HIB 4 Dose Schedule 2001-04-10 Completed Unive rsity of 00:00:00 [facility] DTP 2001-04-10 Completed [facility] of 00:00:00 [facility] HIB 4 Dose Schedule 2001-04-10 Completed Unive rsity of 00:00:00 [facility] DTP 2001-04-10 Completed [facility] of 00:00:00 [facility] HIB 4 Dose Schedule 2001-04-10 Completed Unive rsity of 00:00:00 [facility] DTP 2001-04-10 Completed [facility] of 00:00:00 [facility] HIB 4 Dose Schedule 2001-04-10 Completed Unive rsity of 00:00:00 [facility] DTP 2001-04-10 Completed [facility] of 00:00:00 [facility] Polio (IPV/OPV) 2001-02-12 Completed Universit y of 00:00:00 [facility] DTP 2001-02-12 Completed [facility] of 00:00:00 [facility] HIB 4 Dose Schedule 2001-02-12 Completed Unive rsity of 00:00:00 [facility] Polio (IPV/OPV) 2001-02-12 Completed Universit y of 00:00:00 [facility] DTP 2001-02-12 Completed [facility] of 00:00:00 [facility] HIB 4 Dose Schedule 2001-02-12 Completed Unive rsity of 00:00:00 [facility] DTP 2001-02-12 Completed [facility] of 00:00:00 [facility] HIB 4 Dose Schedule 2001-02-12 Completed Unive rsity of 00:00:00 [facility] Polio (IPV/OPV) 2001-02-12 Completed Universit y of 00:00:00 [facility] DTP 2001-02-12 Completed University of [...] (IPV/OPV) 2001-02-12 Completed Universit y of 00:00:00 [facility] DTP 2001-02-12 Completed [facility] of 00:00:00 [facility] HIB 4 Dose Schedule 2001-02-12 Completed Unive rsity of 00:00:00 [facility] Polio (IPV/OPV) 2001-02-12 Completed Universit y of 00:00:00 [facility] DTP 2001-02-12 Completed [facility] of 00:00:00 [facility] HIB 4 Dose Schedule 2001-02-12 Completed Unive rsity of 00:00:00 [facility] Polio (IPV/OPV) 2001-02-12 Completed Universit y of 00:00:00 [facility] DTP 2001-02-12 Completed [facility] of 00:00:00 [facility] HIB 4 Dose Schedule 2001-02-12 Completed Unive rsity of 00:00:00 [facility] Polio (IPV/OPV) 2001-02-12 Completed Universit y of 00:00:00 [facility] DTP 2001-02-12 Completed [facility] of 00:00:00 [facility] HIB 4 Dose Schedule 2001-02-12 Completed Unive rsity of 00:00:00 [facility] Polio (IPV/OPV) 2001-02-12 Completed Universit y of 00:00:00 [facility] DTP 2001-02-12 Completed [facility] of 00:00:00 [facility] DTP 2001-02-12 Completed [facility] of 00:00:00 [facility] HIB 4 Dose Schedule 2001-02-12 Completed Unive rsity of 00:00:00 [facility] Polio (IPV/OPV) 2001-02-12 Completed Universit y of 00:00:00 [facility] DTP 2001-02-12 Completed [facility] of 00:00:00 [facility] HIB 4 Dose Schedule 2001-02-12 Completed Unive rsity of 00:00:00 [facility] HIB 4 Dose Schedule 2001-02-12 Completed Unive rsity of 00:00:00 [facility] Polio (IPV/OPV) 2001-02-12 Completed Universit y of 00:00:00 [facility] DTP 2001-02-12 Completed [facility] 00:00:00 [facility] HIB 4 Dose Schedule 2001-02-12 Completed Unive rsity of 00:00:00 [facility] Polio (IPV/OPV) 2001-02-12 Completed Universit y of 00:00:00 [facility] DTP 2001-02-12 Completed [facility] of 00:00:00 [facility] HIB 4 Dose Schedule 2001-02-12 Completed Unive rsity of 00:00:00 [facility] Polio (IPV/OPV) 2001-02-12 Completed Universit y of 00:00:00 [facility] DTP 2001-02-12 Completed University of 00:00:00 [facility] HIB 4 Dose Schedule 2001-02-12 Completed Unive rsity of 00:00:00 [facility] Polio (IPV/OPV) 2001-02-12 Completed Universit y of 00:00:00 [facility] DTP 2001-02-12 Completed University of 00:00:00 [facility] Polio (IPV/OPV) 2001-02-12 Completed [facility]it y of 00:00:00 [facility] HIB 4 Dose Schedule 2001-02-12 Completed Unive rsity of 00:00:00 [facility] Polio (IPV/OPV) 2001-02-12 Completed [facility]it y of 00:00:00 [facility] DTP 2001-02-12 Completed [facility] of 00:00:00 [facility] HIB 4 Dose Schedule 2001-02-12 Completed Unive rsity of 00:00:00 [facility] Polio (IPV/OPV) 2001-02-12 Completed Universit y of 00:00:00 [facility] Polio (IPV/OPV) 2000 Completed Universit y of 00:00:00 [facility] Pneumococcal 7 2000 Completed [facility] of Conjugate, PCV7 00:00:00 [facility] [place] [facility] (Prevnar7) Branch DTP 2000 Completed University of 00:00:00 [facility] HIB 4 Dose Schedule 2000 Completed Unive rsity of 00:00:00 [facility] Hep B, Adol or Pedi 2000 Completed Unive rsity of Dosage 00:00:00 [facility] Polio (IPV/OPV) 2000 Completed Universit y of 00:00:00 [facility] Pneumococcal 7 2000 Completed [facility] of Conjugate, PCV7 00:00:00 [facility] (Prevnar7) Branch DTP 2000 Completed [facility] of 00:00:00 [facility] HIB 4 Dose Schedule 2000 Completed Unive rsity of 00:00:00 [facility] Hep B, Adol or Pedi 2000 Completed Unive rsity of Dosage 00:00:00 [facility] Polio (IPV/OPV) 2000 Completed Univers[facility] y of 00:00:00 [facility] Pneumococcal 7 2000 Completed [facility] of Conjugate, PCV7 00:00:00 [place] [facility] (Prevnar7) [facility] DTP 2000 Completed [facility] of 00:00:00 [facility] HIB 4 Dose Schedule 2000 Completed Unive rsity of 00:00:00 [facility] Pneumococcal 7 2000 Completed [facility] of Conjugate, PCV7 00:00:00 [facility] (Prevnar7) [facility] Hep B, Adol or Pedi 2000 Completed Unive rsity of Dosage 00:00:00 [facility] Polio (IPV/OPV) 2000 Completed Univers[facility] y of 00:00:00 [facility] Pneumococcal 7 2000 Completed [facility] of Conjugate, PCV7 00:00:00 [facility] (Prevnar7) Branch DTP 2000 Completed [facility] of 00:00:00 [facility] HIB 4 Dose Schedule 2000 Completed Unive rsity of 00:00:00 [facility] Hep B, Adol or Pedi 2000 Completed Unive rsity of Dosage 00:00:00 [facility] Polio (IPV/OPV) 2000 Completed Univers[facility] y of 00:00:00 [facility] Pneumococcal 7 2000 Completed [facility] of Conjugate, PCV7 00:00:00 [facility] [place] [facility] (Prevnar7) [facility] DTP 2000 Completed [facility] of 00:00:00 [facility] HIB 4 Dose Schedule 2000 Completed Unive rsity of 00:00:00 [facility] DTP 2000 Completed University of 00:00:00 [facility] Hep B, Adol or Pedi 2000 Completed Unive rsity of Dosage 00:00:00 [facility] Polio (IPV/OPV) 2000 Completed [facility] y of 00:00:00 [facility] Pneumococcal 7 2000 Completed [facility] of Conjugate, PCV7 00:00:00 [facility] [place] [facility] (Prevnar7) Branch DTP 2000 Completed [facility] of 00:00:00 [facility] HIB 4 Dose Schedule 2000 Completed Unive rsity of 00:00:00 [facility] Hep B, Adol or Pedi 2000 Completed Unive rsity of Dosage 00:00:00 [facility] Polio (IPV/OPV) 2000 Completed [facility] y of 00:00:00 [facility] Pneumococcal 7 2000 Completed [facility] of Conjugate, PCV7 00:00:00 [facility] [place] [facility] (Prevnar7) [facility] DTP 2000 Completed [facility] of 00:00:00 [facility] HIB 4 Dose Schedule 2000 Completed Unive rsity of 00:00:00 [facility] HIB 4 Dose Schedule 2000 Completed Unive rsity of 00:00:00 [facility] Hep B, Adol or Pedi 2000 Completed Unive rsity of Dosage 00:00:00 [facility] Polio (IPV/OPV) 2000 Completed [facility] y of 00:00:00 [facility] Pneumococcal 7 2000 Completed [facility] of Conjugate, PCV7 00:00:00 [facility] [place] [facility] (Prevnar7) Branch DTP 2000 Completed [facility] of 00:00:00 [facility] HIB 4 Dose Schedule 2000 Completed Unive rsity of 00:00:00 [facility] Hep B, Adol or Pedi 2000 Completed Unive rsity of Dosage 00:00:00 [facility] Polio (IPV/OPV) 2000 Completed [facility] y of 00:00:00 [facility] Pneumococcal 7 2000 Completed [facility] of Conjugate, PCV7 00:00:00 [facility] [place] [facility] (Prevnar7) Branch DTP 2000 Completed [facility] of 00:00:00 [facility] DTP 2000 Completed [facility] of 00:00:00 [facility] Hep B, Adol or Pedi 2000 Completed Unive rsity of Dosage 00:00:00 [facility] HIB 4 Dose Schedule 2000 Completed Unive rsity of 00:00:00 [facility] Hep B, Adol or Pedi 2000 Completed Unive rsity of Dosage 00:00:00 [facility] Polio (IPV/OPV) 2000 Completed Univers[facility] y of 00:00:00 [facility] Pneumococcal 7 2000 Completed [facility] of Conjugate, PCV7 00:00:00 [facility] [place] [facility] (Prevnar7) Branch DTP 2000 Completed [facility] of 00:00:00 [facility] HIB 4 Dose Schedule 2000 Completed Unive rsity of 00:00:00 [facility] HIB 4 Dose Schedule 2000 Completed Unive rsity of 00:00:00 [facility] Hep B, Adol or Pedi 2000 Completed Unive rsity of Dosage 00:00:00 [facility] Polio (IPV/OPV) 2000 Completed [facility] y of 00:00:00 [facility] Pneumococcal 7 2000 Completed [facility] of Conjugate, PCV7 00:00:00 [facility] (Prevnar7) Branch DTP 2000 Completed [facility] of 00:00:00 [facility] HIB 4 Dose Schedule 2000 Completed Unive rsity of 00:00:00 [facility] Hep B, Adol or Pedi 2000 Completed Unive rsity of Dosage 00:00:00 [facility] Polio (IPV/OPV) 2000 Completed [facility]it y of 00:00:00 [facility] Pneumococcal 7 2000 Completed [facility] of Conjugate, PCV7 00:00:00 [facility] (Prevnar7) [facility] Hep B, Adol or Pedi 2000 Completed Unive rsity of Dosage 00:00:00 [facility] DTP 2000 Completed University of 00:00:00 [facility] HIB 4 Dose Schedule 2000 Completed Unive rsity of 00:00:00 [facility] Hep B, Adol or Pedi 2000 Completed Unive rsity of Dosage 00:00:00 [facility] Polio (IPV/OPV) 2000 Completed [facility] of 00:00:00 [facility] Pneumococcal 7 2000 Completed [facility] of Conjugate, PCV7 00:00:00 [place] [facility] (Prevnar7) [facility] DTP 2000 Completed [facility] of 00:00:00 [facility] HIB 4 Dose Schedule 2000 Completed Unive rsity of 00:00:00 [facility] Hep B, Adol or Pedi 2000 Completed Unive rsity of Dosage 00:00:00 [facility] Polio (IPV/OPV) 2000 Completed Univers[facility] y of 00:00:00 [facility] Polio (IPV/OPV) 2000 Completed [facility] of 00:00:00 [facility] Pneumococcal 7 2000 Completed [facility] of Conjugate, PCV7 00:00:00 [facility] [place] [facility] (Prevnar7) Branch DTP 2000 Completed [facility] of 00:00:00 [facility] HIB 4 Dose Schedule 2000 Completed Unive rsity of 00:00:00 [facility] Hep B, Adol or Pedi 2000 Completed Unive rsity of Dosage 00:00:00 [facility] Polio (IPV/OPV) 2000 Completed [facility] y of 00:00:00 [facility] Pneumococcal 7 2000 Completed [facility] of Conjugate, PCV7 00:00:00 [facility] (Prevnar7) [facility] Pneumococcal 7 2000 Completed [facility] of Conjugate, PCV7 00:00:00 [facility] (Prevnar7) [facility] DTP 2000 Completed [facility] of 00:00:00 [facility] HIB 4 Dose Schedule 2000 Completed Unive rsity of 00:00:00 [facility] Hep B, Adol or Pedi 2000 Completed Unive rsity of Dosage 00:00:00 [facility] Polio (IPV/OPV) 2000 Completed [facility] y of 00:00:00 [facility] Hep B, Adol or Pedi 2000 Completed Unive rsity of Dosage 00:00:00 [facility] Hep B, Adol or Pedi 2000 Completed Unive rsity of Dosage 00:00:00 [facility] Hep B, Adol or Pedi 2000 Completed [...] 2000 Completed Unive rsity of Dosage 00:00:00 [facility] Hep B, Adol or Pedi 2000 Completed Unive rsity of Dosage 00:00:00 [facility] Hep B, Adol or Pedi 2000 Completed Unive rsity of Dosage 00:00:00 [facility] Hep B, Adol or Pedi 2000 Completed Unive rsity of Dosage 00:00:00 [facility] Hep B, Adol or Pedi 2000 Completed Unive rsity of Dosage 00:00:00 [facility] Hep B, Adol or Pedi 2000 Completed Unive rsity of Dosage 00:00:00 [facility] Hep B, Adol or Pedi 2000 Completed Unive rsity of Dosage 00:00:00 [facility] Hep B, Adol or Pedi 2000 Completed Unive rsity of Dosage 00:00:00 [facility] Vital Signs Vital Name Observation Time Observation Value Comments Source Systolic blood 2020-11-27 18:18:00 115 mm[Hg] Univer [facility]ity of pressure [facility] Diastolic blood 2020-11-27 18:18:00 73 mm[Hg] Unive rsity of pressure [facility] Heart rate 2020-11-27 18:18:00 88 /min [facility] Body temperature 2020-11-27 18:18:00 37 Li [facility] Respiratory rate 2020-11-27 18:18:00 18 /min [facility] Body height 2020-11-27 18:18:00 162.6 cm [facility] Body weight 2020-11-27 18:18:00 67.541 kg [facility] BMI 2020-11-27 18:18:00 25.56 kg/m2 [facility] Systolic blood 2020-08-27 19:52:00 135 mm[Hg] Univer [facility]ity of pressure [facility] Diastolic blood 2020-08-27 19:52:00 85 mm[Hg] Unive rsity of pressure [facility] Heart rate 2020-08-27 19:52:00 88 /min [facility] Body temperature 2020-08-27 19:52:00 36.94 Li [facility] Respiratory rate 2020-08-27 19:52:00 16 /min [facility] Body height 2020-08-27 19:52:00 162.6 cm [facility] Body weight 2020-08-27 19:52:00 65.409 kg [facility] BMI 2020-08-27 19:52:00 24.75 kg/m2 [facility] Systolic blood 2020-07-16 20:47:00 130 mm[Hg] Univer [facility]ity of pressure [facility] Diastolic blood 2020-07-16 20:47:00 80 mm[Hg] Unive rsity of pressure [facility] Heart rate 2020-07-16 20:47:00 95 /min [facility] Body temperature 2020-07-16 20:47:00 37 Li [facility] Respiratory rate 2020-07-16 20:47:00 16 /min [facility] Body height 2020-07-16 20:47:00 167.6 cm [facility] Body weight 2020-07-16 20:47:00 63.73 kg [facility] BMI 2020-07-16 20:47:00 22.68 kg/m2 [facility] Systolic blood 2020-07-16 20:47:00 130 mm[Hg] Univer [facility]ity of pressure [facility] Diastolic blood 2020-07-16 20:47:00 80 mm[Hg] Unive rsity of pressure [facility] Heart rate 2020-07-16 20:47:00 95 /min [facility] Body temperature 2020-07-16 20:47:00 37 Li [facility] Respiratory rate 2020-07-16 20:47:00 16 /min [facility] Body height 2020-07-16 20:47:00 167.6 cm [facility] Body weight 2020-07-16 20:47:00 63.73 kg [facility] BMI 2020-07-16 20:47:00 22.68 kg/m2 [facility] Systolic blood 2020-07-16 20:47:00 130 mm[Hg] Univer [facility]ity of pressure [facility] Diastolic blood 2020-07-16 20:47:00 80 mm[Hg] Unive rsity of pressure [facility] Heart rate 2020-07-16 20:47:00 95 /min [facility] Body temperature 2020-07-16 20:47:00 37 Li [facility] Respiratory rate 2020-07-16 20:47:00 16 /min [facility] Body height 2020-07-16 20:47:00 167.6 cm [facility] Body weight 2020-07-16 20:47:00 63.73 kg [facility] BMI 2020-07-16 20:47:00 22.68 kg/m2 [facility] Systolic blood 2020-07-16 20:47:00 130 mm[Hg] Univer [facility]ity of pressure [facility] Diastolic blood 2020-07-16 20:47:00 80 mm[Hg] [facility] Branch Heart rate 2020-07-16 20:47:00 95 /min [facility] Body temperature 2020-07-16 20:47:00 37 Li [facility] Respiratory rate 2020-07-16 20:47:00 16 /min [facility] Body height 2020-07-16 20:47:00 167.6 cm [facility] Body weight 2020-07-16 20:47:00 63.73 kg [facility] BMI 2020-07-16 20:47:00 22.68 kg/m2 [facility] Systolic blood 2020-05-29 15:26:00 131 mm[Hg] [facility] Diastolic blood 2020-05-29 15:26:00 85 mm[Hg] [facility]ive [facility]ity [facility] Heart rate 2020-05-29 15:26:00 82 /min [facility] Body temperature 2020-05-29 15:26:00 36.67 Li [facility] Respiratory rate 2020-05-29 15:26:00 16 /min [facility] Body height 2020-05-29 15:26:00 167.6 cm [facility] Body weight 2020-05-29 15:26:00 62.71 kg [facility] BMI 2020-05-29 15:26:00 22.31 kg/m2 [facility] Systolic blood 2020-05-15 15:45:00 122 mm[Hg] [facility] Diastolic blood 2020-05-15 15:45:00 83 mm[Hg] Unive rsity of [facility] Heart rate 2020-05-15 15:45:00 109 /min [facility] Body temperature 2020-05-15 15:45:00 37.11 Li [facility] Respiratory rate 2020-05-15 15:45:00 16 /min [facility] Body height 2020-05-15 15:45:00 167.6 cm [facility] [place] [facility] Body weight 2020-05-15 15:45:00 63.56 kg [facility] BMI 2020-05-15 15:45:00 22.62 kg/m2 [facility] Systolic blood 2020-03-31 01:52:00 127 mm[Hg] [facility] Diastolic blood 2020-03-31 01:52:00 84 mm[Hg] [facility] Heart rate 2020-03-31 01:52:00 84 /min [facility] Body temperature 2020-03-31 01:52:00 36.94 Li [facility] Respiratory rate 2020-03-31 01:52:00 16 /min [facility] Body height 2020-03-31 01:52:00 167.6 cm [facility] Body weight 2020-03-31 01:52:00 65.772 kg [facility] BMI 2020-03-31 01:52:00 23.40 kg/m2 [facility] Oxygen saturation in 2020-03-31 01:52:00 100 /min University of Arterial blood by [facility] Pulse oximetry Branch Systolic blood 2020-01-26 04:02:00 120 mm[Hg] [facility] Diastolic blood 2020-01-26 04:02:00 81 mm[Hg] [facility] Heart rate 2020-01-26 04:02:00 88 /min [facility] Respiratory rate 2020-01-26 04:02:00 16 /min [facility] Oxygen saturation in 2020-01-26 04:02:00 99 /min University of Arterial blood by [facility] Pulse oximetry Branch Body temperature 2020-01-26 01:49:00 36.72 Li [facility] Body height 2020-01-26 01:49:00 167.6 cm [facility] Body weight 2020-01-26 01:49:00 65.772 kg [facility] BMI 2020-01-26 01:49:00 23.40 kg/m2 [facility] Systolic blood 2020-01-15 16:27:00 126 mm[Hg] [facility] Diastolic blood 2020-01-15 16:27:00 76 mm[Hg] [facility] Heart rate 2020-01-15 16:27:00 74 /min [facility] Body temperature 2020-01-15 16:27:00 36.22 Li [facility] Respiratory rate 2020-01-15 16:27:00 16 /min [facility] Body height 2020-01-15 16:27:00 165.1 cm [facility] Body weight 2020-01-15 16:27:00 67.586 kg [facility] BMI 2020-01-15 16:27:00 24.79 kg/m2 [facility] Systolic blood 2019-12-18 15:29:00 127 mm[Hg] [facility] Diastolic blood 2019-12-18 15:29:00 70 mm[Hg] [facility]ive [facility] Heart rate 2019-12-18 15:29:00 66 /min [facility] Body temperature 2019-12-18 15:29:00 36.33 Li Univ [facility] Respiratory rate 2019-12-18 15:29:00 16 /min [facility] Body height 2019-12-18 15:29:00 165.1 cm [facility] Body weight 2019-12-18 15:29:00 64.949 kg [facility] BMI 2019-12-18 15:29:00 23.83 kg/m2 [facility] Systolic blood 2019-11-08 15:20:00 125 mm[Hg] [facility] Diastolic blood 2019-11-08 15:20:00 83 mm[Hg] Unive rsity of pressure [facility] Branch Heart rate 2019-11-08 15:20:00 71 /min [facility] Body temperature 2019-11-08 15:20:00 36.67 Li [facility] Respiratory rate 2019-11-08 15:20:00 16 /min Univ [facility] Branch Body height 2019-11-08 15:20:00 165.1 cm [facility] Body weight 2019-11-08 15:20:00 65.97 kg [facility] BMI 2019-11-08 15:20:00 24.20 kg/m2 [facility] Systolic blood 2019-08-27 17:25:47 118 mm[Hg] Univer sity of pressure [facility] Diastolic blood 2019-08-27 17:25:47 77 mm[Hg] [facility] Body temperature 2019-08-27 17:25:47 37.17 Li [facility] Respiratory rate 2019-08-27 17:25:47 16 /min [facility] Heart rate 2019-08-27 17:15:00 83 /min [facility] Body height 2019-08-27 17:15:00 165.1 cm [facility] Body weight 2019-08-27 17:15:00 63.504 kg [facility] BMI 2019-08-27 17:15:00 23.30 kg/m2 [facility] Oxygen saturation in 2019-08-27 17:15:00 98 /min [facility] blood by [facility] Pulse oximetry Branch Procedures Procedure Date / Time Performed Performing Clinician Juanito CHING (MCV4-C) 2021-10-13 13:39:24 Parson, [facility] o f [facility] ASSIGNMENT OF BENEFITS 2020-11-27 18:03:19 Doctor Unassigned, No [facility] CLINIC RECORD / SMR 2020-09-21 05:01:00 Doctor [facility]assigned, [facility] 2020-05-29 15:27:00 Aileen Ortiz [facility] POCT TEST 2020-05-15 15:50:00 Kamilah [facility] ASSIGNMENT OF BENEFITS 2020-05-15 15:29:12 Doctor Unassigned, No [facility] CONSENT/REFUSAL FOR 2020-03-31 01:43:32 Doctor Unassigned, No [facility] [place] DIAGNOSIS AND [facility] TREATMENT BASIC METABOLIC PANEL 2020-01-26 02:58:00 Cathryn Moss [facility] (NA, K, CL, CO2, Medical Branch GLUCOSE, BUN, CREATININE, CA) TOTAL BETA HCG ASSAY 2020-01-26 02:58:00 Cathryn Moss [facility] URINALYSIS 2020-01-26 02:58:00 Cathryn Moss [facility] HB ABO GROUPING 2020-01-26 02:09:00 Cathryn Moss [facility] CBC WITH DIFF 2020-01-26 02:08:00 Cathryn Moss [facility] FIRST TRIMESTER 2020-01-17 18:01:00 Aileen Ortiz Univers ity [facility] ULTRASOUND [facility] Branch POCT URINALYSIS 2020-01-15 16:29:00 Aileen Ortiz Univers ity [facility] FLU VACC ([id number]), 2019-12-18 16:05:36 [facility] IM, QUAD Medical Bran ch POCT URINALYSIS W/O 2019-12-18 15:20:00 Aileen Ortiz [facility] [place] SPECIFIC GRAVITY [facility] POCT TEST 2019-12-18 15:19:00 [facility] REPORT OF 2019-12-18 05:01:00 Doctor Unassigned, No [facility] PO[facility] TEST 2019-11-08 15:23:00 [facility] ASSIGNMENT OF BENEFITS 2019-11-08 15:08:04 Doctor Unassigned, No [facility] NOTICE OF PRIVACY 2019-08-27 16:47:13 Doctor Unassigned, No [facility] CONSENT/REFUSAL FOR 2019-08-27 16:46:57 Doctor Unassigned, No [facility] AND [facility] TREATMENT Plan of Care Planned Activity Planned Date Details Comments Source Future Scheduled 2022-12-25 DTaP,Tdap,and Td Univers ity of Test 00:00:00 Vaccines (7 - Td) [facility] [code = Branch DTaP,Tdap,and Td Vaccines (7 - Td)] Future Scheduled 2022-12-25 DTaP,Tdap,and Td Univers ity of Test 00:00:00 Vaccines (7 - Td) [facility] [code = Branch DTaP,Tdap,and Td Vaccines (7 - Td)] Future Scheduled 2020-12-17 Screening for University of Test 00:00:00 Chlamydia [place] [facility] trachomatis Branch (procedure) [code = 949850228] Future Scheduled 2020-12-17 Screening for University of Test 00:00:00 Chlamydia [place] [facility] trachomatis Branch (procedure) [code = 467709051] Future Scheduled 2020-11-07 Depression screening Uni versity of Test 00:00:00 (procedure) [code = [facility] dical 262686274] Branch Future Scheduled 2020-11-07 MENINGOCOCCAL B Postponed from Univer sity of Test 00:00:00 VACCINES (1 of - 2010 [place] [facility] Risk Bexsero 2-dose (Alternative Branch series) [code = Guidelines) MENINGOCOCCAL B VACCINES (1 of 2 - Risk Bexsero 2-dose series)] Future Scheduled 2020-11-07 Well child visit Univers ity of Test 00:00:00 (procedure) [code = [facility] dical 475926457] Branch Future Scheduled 2020-11-07 Depression screening Uni versity of Test 00:00:00 (procedure) [code = [facility] dical 558842966] Branch Future Scheduled 2020-11-07 MENINGOCOCCAL B Postponed from Univer sity of Test 00:00:00 VACCINES (1 of - 2010 [place] [facility] ical Risk Bexsero 2-dose (Alternative Branch series) [code = Guidelines) MENINGOCOCCAL B VACCINES (1 of 2 - Risk Bexsero 2-dose series)] Future Scheduled 2020-11-07 Well child visit Univers ity of Test 00:00:00 (procedure) [code = [facility] dical 949633033] Branch Future Scheduled 2018 Hepatitis C University of Test 00:00:00 screening [place] [facility] (procedure) [code = Branch 700223212] Future Scheduled 2018 Hepatitis C University of Test 00:00:00 screening [facility] [place] [facility] (procedure) [code = Branch 542349861] Future Scheduled 2016 SARS-CoV-2 University of Test 00:00:00 (COVID-19) Vaccine [place] [facility] (1) [code = Branch SARS-CoV-2 (COVID-19) Vaccine (1)] Future Scheduled 2016 SARS-CoV-2 University of Test 00:00:00 (COVID-19) Vaccine [place] [facility] (1) [code = Branch SARS-CoV-2 (COVID-19) Vaccine (1)] Future Scheduled 2006 PNEUMOCOCCAL 0-64 Univer sity of Test 00:00:00 YEARS COMBINED [place] [facility] SERIES (1 of 1 - Branch PPSV23) [code = PNEUMOCOCCAL 0-64 YEARS COMBINED SERIES (1 of 1 - PPSV23)] Future Scheduled 2006 PNEUMOCOCCAL 0-64 Univer sity of Test 00:00:00 YEARS COMBINED [place] [facility] SERIES (1 of 1 - Branch PPSV23) [code = PNEUMOCOCCAL 0-64 YEARS COMBINED SERIES (1 of 1 - PPSV23)] Future Scheduled HIV 1/2 AG-AB WITH Unive rsity of Test REFLEX [code = [facility] 40924-0] Branch Future Scheduled GALV ONLY - SYPHILIS Uni versity of Test IGG/IGM [code = [facility] 43855-8] Branch Future Scheduled TRICHOMONAS University of Test AMPLIFIED ASSAY [place] [facility] [code = 68612-1] Branch Future Scheduled HSV 1 AND 2 University of Test GLYCOPROTEIN G IGG [place] [facility] [code = NIX379173] Branch Future Scheduled HIV 1/2 AG-AB WITH Unive rsity of Test REFLEX [code = [facility] 91766-8] Branch Future Scheduled GALV ONLY - SYPHILIS Uni versity of Test IGG/IGM [code = [facility] l 40991-1] Branch Future Scheduled TRICHOMONAS University of Test AMPLIFIED ASSAY [employer] [facility] [code = 76661-7] Branch Future Scheduled HSV 1 AND 2 University of Test GLYCOPROTEIN G IGG [place] [facility] ical [code = YZY399995] Branch Encounters Start End Encounter Admission Attending Care Care Encounter Source Date/Time Date/Time Type Type Clinicians Facility Department ID 2021-01-09 Emergency [facility] [id number] Univers 17:52:48 ity of [facility] 2021-01-09 Emergency [facility] [id number] Univers 05:35:18 ity of [facility] 2021-10-13 2021-10-13 Outpatient Sher PARSON [facility] [id number] Univers 08:00:00 08:42:21 ANIL ity [facility] 2021-10-13 2021-10-13 Nurse Nurse, Holden Chatterjee [facility] 1.2.840.114 [id number] Univers 08:00:00 08:20:00 Visit Anil Parson [facility] [id number] [facility] [id number] Brian as ONEIL?BLEA [phone] Ma galen [address] MEDICAL OFFICE BUILDING 2021-10-13 2021-10-13 Outpatient R [facility] [id number] Univers 08:00:00 08:00:00 [id number] [facility] 2021-09-27 2021-09-27 Outpatient R RINA, [facility] [id number] Univers 17:15:00 17:15:00 KAMILAH [id number] ity o [facility] 2021-06-10 2021-06-10 Outpatient R AKINSIPE, [facility] [id number] Univers 09:15:00 09:15:00 AILEEN [id number] ity o [facility] 2021-06-10 2021-06-10 Outpatient R AKINSIPE, [facility] [id number] Univers 09:15:00 09:15:00 AILEEN ity o [facility] 2021-05-11 2021-05-11 Outpatient R RINA, [facility] [id number] Univers 14:30:00 14:30:00 KAMILAH [id number] ity o [facility] 2021-05-07 2021-05-07 Outpatient R AKINSIPE, [facility] [id number] Univers 10:30:00 10:30:00 AILEEN [id number] ity o [facility] 2021-05-07 2021-05-07 Outpatient R AKINSIPE, [facility] [id number] Univers 10:30:00 10:30:00 AILEEN y o [facility] 2021-02-19 2021-02-19 Outpatient R [facility] [id number] Univers 13:00:00 13:00:00 [id number] [facility] 2021-02-19 2021-02-19 Outpatient R JORGE, [facility] [id number] Univers 13:00:00 13:00:00 ERICA [facility] 2020-11-27 2020-11-27 Nurse Visit, Ang-Rmchp Nurse [facility] 1.2 .840.114 [id number] Univers 13:04:57 13:19:13 Visit Aileen Ortiz COMPLAINT INVESTIGATIONS OFFICER [id number]. 10 ity of [facility] [id number] Brian as MATERNAL [phone] [facility] ical & CHILD [address] [facility] 2020-11-27 2020-11-27 Outpatient R [facility] [id number] Univers 13:00:00 13:00:00 [id number] ity of [facility] 2020-11-27 2020-11-27 [facility] [id number] Univers 13:00:00 13:00:00 AILEEN cox o f [facility] 2020-11-27 2020-11-27 Orders Doctor AN 1.2.840.114 [id number] Univers 00:00:00 00:00:00 Only Unassigned, BRIE [id number] ity of [place] [facility] [id number] Brian as [phone] [address] 2020-11-19 2020-11-19 Outpatient R [facility] [id number] Univers 16:00:00 16:00:00 [id number] ity of [facility] 2020-11-19 2020-11-19 Outpatient R [facility] [id number] Univers 16:00:00 16:00:00 ity [facility] 2020-09-21 2020-09-21 Orders Doctor AN 1.2.840.114 [id number] Univers 00:00:00 00:00:00 Only Unassigned, BRIE 350.1.13.10 ity of [place] [facility] [id number] Brian as [phone] [address] 2020-08-27 2020-08-27 Nurse Visit, Gianna Nurse [facility] 1.2 .840.114 [id number] Univers 14:40:13 15:04:54 Visit Aileen Ortiz COMPLAINT INVESTIGATIONS OFFICER 350.1.13. 10 ity of [facility] [id number] Brian as MATERNAL [phone] Med ical & CHILD 107 [place] [facility] 2020-08-27 2020-08-27 Outpatient R [facility] [id number] Univers 14:30:00 14:30:00 [id number] ity [facility] 2020-08-27 2020-08-27 Outpatient R [facility] [id number] Univers 14:30:00 14:30:00 ity [facility] 2020-08-21 2020-08-21 Outpatient R [facility] [id number] Univers 10:30:00 10:30:00 [id number] ity [facility] 2020-08-21 2020-08-21 Outpatient R [facility] [id number] Univers 10:30:00 10:30:00 ity [facility] 2020-08-06 2020-08-06 Outpatient R [facility] [id number] Univers 13:00:00 13:00:00 [id number] ity [facility] 2020-08-06 2020-08-06 Outpatient R [facility] [id number] Univers 13:00:00 13:00:00 ity [facility] 2020-07-17 2020-07-17 [facility] 1.2.840.114 [id number] Univers 00:00:00 00:00:00 Erica Grimaldo COMPLAINT INVESTIGATIONS OFFICER [id number] it y of [facility] [id number] Brian as MATERNAL [phone] [facility] [address] [place] [address] 2020-07-16 2020-07-16 Office [facility] [id number] Univers 15:24:15 16:11:00 Visit Erica Grimaldo COMPLAINT INVESTIGATIONS OFFICER 350.1.13.10 it y of [facility] [id number] Brian as MATERNAL [id number] [facility] [address] [place] [address] 2020-07-16 2020-07-16 [facility] [id number] Univers 15:30:00 15:30:00 ERICA [id number] [facility] 2020-07-16 2020-07-16 [facility] [id number] Univers 15:30:00 15:30:00 ERICA ity [facility] 2020-06-02 2020-06-02 Patient Jonathan [facility] 1.2.840.114 [id number] Univers 00:00:00 00:00:00 Outreach Goyo PRIMARY [id number] i ty of [facility] [id number] [place] [id number] [address] 2020-05-29 2020-05-29 Nurse Visit, Holden-Rmchp Nurse [facility] 1.2 .840.114 [id number] Univers 10:03:17 10:52:07 Visit Aileen Ortiz COMPLAINT INVESTIGATIONS OFFICER 350.1.13. 10 ity of [facility] [id number] Brian as MATERNAL [phone] Med ical & CHILD [address] [place] [address] 2020-05-29 2020-05-29 Outpatient R [facility] [id number] Univers 10:00:00 10:00:00 [id number] [facility] 2020-05-29 2020-05-29 Outpatient R [facility] [id number] Univers 10:00:00 10:00:00 [facility] 2020-05-15 2020-05-15 Office Rina [facility] 1.2.840.114 [id number] Univers 09:36:38 10:44:46 Visit Kamilah Olivarez COMPLAINT INVESTIGATIONS OFFICER [id number] [facility] [id number] Brian as MATERNAL [id number] [facility] ical & CHILD [address] [place] [address] 2020-05-15 2020-05-15 Outpatient RINA [facility] [id number] Univers 09:00:00 09:00:00 KAMILAH [id number] jeannay o [facility] 2020-05-15 2020-05-15 [facility] [id number] Univers 09:00:00 09:00:00 KAMILAH cox o [facility] 2020-05-15 2020-05-15 Orders Doctor NOLAN 1.2.840.114 [id number] Univers 00:00:00 00:00:00 Only Unassigned, BRIE 350.1.13.10 ity of [place] [facility] 4.2.7.2.686 Brian as [phone] [address] 2020-04-06 2020-04-06 Telephone Angel, [facility] 1.2.840.114 [id number] Univers 00:00:00 00:00:00 Aileen Gee COMPLAINT INVESTIGATIONS OFFICER 350.1.13.10 ity of [facility] [id number] Brian as MATERNAL [phone] Med ical & CHILD [address] [place] [address] 2020-03-30 2020-03-30 Emergency Aufderheide [facility] 1.2.840.114 [id number] Univers 19:54:00 20:46:00 , Maisha Silverthorne 350.1.13.10 i ty of [place]any [place] 4.2.7.2.686 [facility] [phone] [facility] [address] [place] 2020-03-30 2020-03-30 Orders Doctor AN 1.2.840.114 [id number] Univers 00:00:00 00:00:00 Only Unassigned, BRIE 350.1.13.10 ity of [place] [facility] [id number] Brian as [phone] [address] 2020-03-25 2020-03-25 Outpatient R AKINSIPE, [facility] [id number] Univers 13:15:00 13:15:00 AILEEN [id number] jeannay o [facility] 2020-03-25 2020-03-25 Outpatient R AKINSIPE, [facility] [id number] Univers 13:15:00 13:15:00 AILEEN cox o f [facility] 2020-03-10 2020-03-10 Outpatient R AKINSIPE, [facility] [id number] Univers 08:15:00 08:15:00 AILEEN [id number] jeannay o [place] [facility] 2020-03-10 2020-03-10 Outpatient R AKINSIPE, [facility] [id number] Univers 08:15:00 08:15:00 AILEEN cox o f [facility] 2020-03-04 2020-03-04 Outpatient R FLYNN, [facility] [id number] Univers 08:15:00 08:15:00 KAMILAH [id number] ity o f [facility] 2020-03-04 2020-03-04 Outpatient R FLYNN, [facility] [id number] Univers 08:15:00 08:15:00 NIMESHVERONICA meeksy o f [facility] 2020-03-02 2020-03-02 Outpatient R AKINSIPE, [facility] [id number] Univers 09:30:00 09:30:00 AILEEN [id number] ity o f [facility] 2020-02-24 2020-02-24 Outpatient R AKINSIPE, [facility] [id number] Univers 15:30:00 15:30:00 AILEEN [id number] ity o f [facility] 2020-02-24 2020-02-24 Outpatient R AKINSIPE, [facility] [id number] Univers 15:30:00 15:30:00 AILEEN meeksy o [facility] 2020-02-12 2020-02-12 Outpatient R AKINSIPE, [facility] [id number] Univers 09:30:00 09:30:00 AILEEN ity o [facility] 2020-02-12 2020-02-12 Outpatient R AKINSIPE, [facility] [id number] Univers 09:30:00 09:30:00 AILEEN meeksy o [facility] 2020-02-11 2020-02-11 Outpatient [facility] [id number] Univers 10:30:00 10:30:00 [id number] ity of [facility] 2020-02-11 2020-02-11 Outpatient R AKINSIPE, [facility] [id number] Univers 10:30:00 10:30:00 AILEEN ity o [facility] 2020-02-11 2020-02-11 Telephone Akinsipe, [facility] 1.2.840.114 [id number] Univers 00:00:00 00:00:00 Aileen Gee COMPLAINT INVESTIGATIONS OFFICER 350.1.13.10 [facility] [id number] Brian as MATERNAL [id number] Med ical & CHILD [address] [place] [address] 2020-02-03 2020-02-03 Abstract Angel, [facility] 1.2.840.114 [id number] Univers 00:00:00 00:00:00 Aileen Gee COMPLAINT INVESTIGATIONS OFFICER 350.1.13.10 ity of [facility] [id number] Brian as MATERNAL [phone] [facility] 107 [facility] 2020-01-31 2020-01-31 Outpatient R [facility] [id number] Univers 10:00:00 10:00:00 ity of [facility] 2020-01-31 2020-01-31 Outpatient P [facility] [id number] Univers 10:00:00 10:00:00 ity [facility] 2020-01-25 2020-01-25 [facility] [id number] [id number] Univers 19:51:00 22:26:00 Cathryn Abad [place] 350.1.13.10 i ty [place] [facility] [facility] [place] [phone] [facility] [address] [place] 2020-01-20 2020-01-20 Abstract Rina, [facility] 1.2.840.114 [id number] Univers 00:00:00 00:00:00 Kamilah Olivarez COMPLAINT INVESTIGATIONS OFFICER 350.1.13.10 ity of [facility] 4.2.7.2.686 Brian as MATERNAL [phone] [facility] [address] [place] [address] 2020-01-17 2020-01-17 Cad Cam Programmer 3, [facility] Us Room UNIVERSIT 1 .2.840.114 [id number] Univers 11:16:31 12:24:00 Visit Yessenia Castillo [facility] 350.1.13.10 ity of [facility] [place]2.7.2.[place] [phone] [facility] [address] [place] 2020-01-17 2020-01-17 Outpatient R [facility] [id number] -[id number] Univers 11:15:00 11:15:00 ity of [facility] 2020-01-17 2020-01-17 Outpatient P [facility] [id number] Univers 11:15:00 11:15:00 ity of [facility] 2020-01-15 2020-01-15 Routine Akinsipe, [facility] 1.2.176.578 [id number] Univers 10:10:58 11:15:50 Aileen C COMPLAINT INVESTIGATIONS OFFICER 350.1.13.10 ity of Visit REGIONAL 4.2.7.2.686 Brian as MATERNAL [phone] [facility] [address] [place] [address] 2020-01-15 2020-01-15 Outpatient R ANGEL, [facility] [id number] Univers 10:45:00 10:45:00 AILEEN itrc o [facility] 2020-01-15 2020-01-15 Outpatient R ANGEL, [facility] [id number] Univers 10:45:00 10:45:00 AILEEN cox o [facility] 2019-12-24 2019-12-24 Cad Cam Programmer Lab, Ang-Rmchp [facility] 1.2.840. 114 [id number] Univers 10:58:41 11:14:03 Visit Aileen Ortiz COMPLAINT INVESTIGATIONS OFFICER 350.1.13. 10 ity of [facility] 4.2.7.2.686 Brian as MATERNAL [phone] [facility] & CHILD [address] [place] [address] 2019-12-24 2019-12-24 Outpatient [facility] [id number] -[id number] Univers 10:30:00 10:30:00 [id number] ity of [facility] 2019-12-24 2019-12-24 Outpatient R MUTRISHSTEVE, [facility] [id number] Univers 10:30:00 10:30:00 AILEEN yap [facility] 2019-12-20 2019-12-20 Telephone [facility] 1.2.840.114 [id number] Univers 00:00:00 00:00:00 Aileen C COMPLAINT INVESTIGATIONS OFFICER 350.1.13.10 ity of REGIONAL 4.2.7.2.686 Brian as MATERNAL [phone] [facility] ical & CHILD [address] [place] [address] 2019-12-19 2019-12-19 Telephone [facility] 1.2.840.114 [id number] Univers 00:00:00 00:00:00 Aileen C COMPLAINT INVESTIGATIONS OFFICER 350.1.13.10 ity of REGIONAL 4.2.7.2.686 Brian as MATERNAL [phone] [facility] [address] [place] [address] 2019-12-18 2019-12-18 Initial Angel [facility] [id number] Univers 10:13:25 14:20:03 Aileen Gee COMPLAINT INVESTIGATIONS OFFICER 350.1.13.10 ity of Visit REGIONAL 4.2.7.2.686 Brian as MATERNAL [phone] [address] 2019-12-18 2019-12-18 Outpatient R [facility] [id number] -[id number] Univers 09:30:00 09:30:00 ity [facility] 2019-12-18 2019-12-18 [facility] [id number] Univers 09:30:00 09:30:00 AILEEN cox o f [facility] 2019-12-18 2019-12-18 Orders Doctor AN 1.2.840.114 [id number] Univers 00:00:00 00:00:00 Only Unassigned, BRIE 350.1.13.10 ity of [place] [facility] 4.2.7.2.686 Brian as [phone] [address] 2019-11-22 2019-11-22 Outpatient R [facility] [id number] -[id number] Univers 09:00:00 09:00:00 [id number] ity [facility] 2019-11-22 2019-11-22 Outpatient R [facility] [id number] Univers 09:00:00 09:00:00 ity [facility] 2019-11-12 2019-11-12 [facility] 1.2.840.114 [id number] Univers 00:00:00 00:00:00 Erica Grimaldo COMPLAINT INVESTIGATIONS OFFICER 350.1.13.10 it y of REGIONAL 4.2.7.2.686 Brian as MATERNAL [phone] [facility] & CHILD [address] [place] [address] 2019-11-11 2019-11-11 Telephone Jorge [facility] 1.2.840.114 [id number] Univers 00:00:00 00:00:00 Erica N COMPLAINT INVESTIGATIONS OFFICER 350.1.13.10 it y of [facility] 4.2.7.2.686 Brian as MATERNAL [phone] Med ical & CHILD 107 [facility] 2019-11-08 2019-11-08 Office Jorge [facility] [id number] Univers 10:10:32 10:59:47 Visit Erica Dillan COMPLAINT INVESTIGATIONS OFFICER 350.1.13.10 it y of [facility] 4.2.7.2.686 Brian as MATERNAL [phone] [facility] ical & CHILD [address] [place] [address] 2019-11-08 2019-11-08 [id number] Univers 10:15:00 10:15:00 ERICA ity [facility] 2019-11-08 2019-11-08 Outpatient R [facility] [id number] Univers 09:30:00 09:30:00 [id number] ity [facility] 2019-11-08 2019-11-08 Orders Doctor AN 1.2.840.114 [id number] Univers 00:00:00 00:00:00 Only Unassigned, BRIE 350.1.13.10 ity of [place] [facility] 4.2.7.2.686 Brian as [phone] [facility] [address] [place] 2019-09-20 2019-09-20 Laboratory Lab, Adc Fam Pob I [facility] 1.2. 840.114 [id number] Univers 07:46:27 08:06:27 Only Judith Florence [facility] 350.1.13.10 ity of [place] 4.2.7.2.686 Brian as Professio [phone] [address] Office Building [facility] 2019-09-20 2019-09-20 Letter Doctor AN 1.2.840.114 [id number] Univers 00:00:00 00:00:00 (Out) Unassigned, BRIE 350.1.13.10 ity of [place] [facility] 4.2.7.2.686 Brian as [phone] [facility] [address] [place] 2019-08-27 2019-08-27 Emergency Sina Tapia [facility] 1.2. 840.114 [id number] Univers 12:16:29 15:48:00 Som Haque [place] 350.1.13.10 ity of [place] 4.2.7.2.686 [facility] [id number] [address] 2019-08-27 2019-08-27 Emergency X REGINA [facility] ERT [id number] Univers 11:46:00 11:46:00 LAWRENCEVLAD [facility] Results Test Description Test Time Test Comments Results Result Comments Source POCT TEST 2020-05-29 15:28:00 Test Item Value Reference Range Interpretation Comme nts POCT PREG (test code = 1605) Negative On board controls acceptable with C Line (test code = 3574) Yes POCT PREG LOT # (test code = 3575) POCT PREG TEST DATE (test code = 3576) [id number] 15:50:00 Test Item Value Reference Range Interpretation Comments POCT PREG (test code = 1605) Negative On board controls acceptable with C Yes Line (test code = 3574) POCT PREG LOT # (test code = 3575) POCT PREG TEST DATE (test code = 3576) [facility] [id number] 15:50:00 Test Item Value Reference Range Interpretation Comments POCT PREG (test code = 1605) Negative On board controls acceptable with C Yes Line (test code = 3574) POCT PREG LOT # (test code = 3575) POCT PREG TEST DATE (test code = 3576) [facility] [id number] 15:50:00 Test Item Value Reference Range Interpretation Comments POCT PREG (test code = 1605) Negative On board controls acceptable with C Yes Line (test code = 3574) POCT PREG LOT # (test code = 3575) POCT PREG TEST DATE (test code = 3576) [facility] BHCG (QUANTITATIVE)2020-01-26 03:41:00 Test Item Value Reference Range Interpretation Comments BETA HCG (test See_Comment [Automated m essage] code = The system ic h 0317474317) generated this result transmit ivon reference range : Non- fe male and male patien ts: <5 mIU/mL. The reference range was not used to interpret this result as normal/abnormal . KHANH (test code Gestational Age ? ? = KHANH) ?Range (mIU/mL) 1-10 ?Weeks ?23-39997227-01 Weeks ?89478-33831931-80 Weeks ?0039-28981779-13 Weeks ?1150-590198 Biotin has been reported to cause a negative bias, interpret results relative to patient's use of biotin. [facility] (NA, K, CL, CO2, GLUCOSE, BUN, CREATININE, CA)2020-01-26 03:26:00 Test Item Value Reference Range Interpretation Comments NA (test code = 143 mmol/L 135-145 2821839369) K (test code = 3.3 mmol/L 3.5-5 L 2319588970) CL (test code = 108 mmol/L 98-108 1429284854) CO2 TOTAL (test code = 24 mmol/L 23-31 0750854706) AGAP (test code = 2-16 8990469979) BUN (test code = 11 mg/dL 7-23 6480152991) GLUCOSE (test code = 114 mg/dL 70-110 H 7573928076) CREATININE (test code = 0.66 mg/dL 0.5-1.04 4679977047) CALCIUM (test code = 9.9 mg/dL 8.6-10.6 5710339102) eGFR Calculation mL/min/1.73m2 (Non-) (test code = 9825974014) eGFR Calculation mL/min/1.73m2 () (test code = 1553415525) KHANH (test code = KHANH) Association of [...] tests). Lab Interpretation Abnormal (test code = 86752-3) [facility] [id number] 03:18:40 Test Item Value Reference Range Interpretation Comments ABO & RH (test code B Positive Performe d at [facility] = 20) Laboratory Serv [facility] [place], [place] [address]Toll Free: [phone] A No. [id number] IAT (test code = Negative Performed a t [facility] 1185) Laboratory Serv [facility] [place], [place] [address]Toll Free: [phone] A No. [id number] [facility]15 03:18:00 Test Item Value Reference Range Interpretation Comments APPEARANCE (test code = Hazy Clear A 3836021675) COLOR (test code = Yellow Yellow 8803933355) PH (test code = 4.8-8.0 2219507158) SP GRAVITY (test code = 1.003-1.030 9601904458) GLU U QUAL (test code = Normal Normal 1682957360) BLOOD (test code = 2+ Negative A 0317544535) KETONES (test code = Negative Negative 0449544916) PROTEIN (test code = Negative Negative 2887-8) UROBILIN (test code = Normal Normal 5174779562) BILIRUBIN (test code = Negative Negative 7148814640) NITRITE (test code = Negative Negative 6005711658) LEUK MANI (test code = Negative Negative 3796068199) RBC/HPF (test code = See_Comment H [Autom ated message] 0455910764) The system [employer] generated this result transmitted ref erence range: 0 - 3 HP F. The reference range was not used to int erpret this result as normal/abnormal . WBC/HPF (test code = See_Comment H [Autom ated message] 4415049960) The system [employer] generated this result transmitted ref erence range: 0 - 5 HP F. The reference range was not used to int erpret this result as normal/abnormal . BACTERIA (test code = Few Negative A 4125970354) MUCOUS (test code = Slight Negative LPF A 5071152997) SQ EPITH (test code = HPF 9317402577) Lab Interpretation (test Abnormal code = 71002-8) [facility] WITH [id number] 02:21:00 Test Item Value Reference Range Interpretation Comments WBC (test code = See_Comment [Automated 6690-2) message] The sy stem which generated this result transmitted reference range : 4.30 - 11.10 10*3/?L. The reference range was not used to interpret this result as normal/abnormal . RBC (test code = See_Comment [Automated 789-8) message] The sy stem which generated this [...] (test code = 36.1 fL 39-49.9 L 61240-7) RDW-CV (test code = 11.4 % 12-15.5 L 788-0) PLT (test code = See_Comment [Automated 777-3) message] The sy stem which generated this result transmitted reference range : 166 - 358 10*3/ ?L. The reference r janny was not used to interpret this result as normal/abnormal . MPV (test code = 9.3 fL 9.5-12.9 L 79547-1) NRBC/100 WBC (test See_Comment [Automat ed code = 9178281718) message] The system which generated this result transmitted reference range : 0.0 - 10.0 /100 WBCs. The refer ence range was not u sed to interpret th is result as normal/abnormal . NRBC x10^3 (test code <0.01 See_Comment [Auto mated = 8728318700) message] The s ystem which generated this result transmitted reference range : 10*3/?L. The reference range was not used to interpret this result as normal/abnormal . GRAN MAT (NEUT) % 63.0 % (test code = 770-8) IMM GRAN % (test code 0.30 % = 7543567932) LYMPH % (test code = 30.5 % 736-9) MONO % (test code = 5.1 % 5905-5) EOS % (test code = 0.4 % 713-8) BASO % (test code = 0.7 % 706-2) GRAN MAT x10^3(ANC) 4.65 10*3/uL 1.88-7.09 (test code = 1395232562) IMM GRAN x10^3 (test <0.03 0-0.06 code = 7287823598) LYMPH x10^3 (test code 2.25 10*3/uL 1.32-3.29 = 731-0) MONO x10^3 (test code 0.38 10*3/uL 0.33-0.92 = 742-7) EOS x10^3 (test code = 0.03 10*3/uL 0.03-0.39 711-2) BASO x10^3 (test code 0.05 10*3/uL 0.01-0.07 = 704-7) Lab Interpretation Abnormal (test code = 20286-6) [facility] URINALYSIS W SPECIFIC [id number] 16:29:00 Test Item Value Reference Range Interpretation [...] POCT U APPEAR (test code = 3267) [facility] [id number] 15:20:00 Test Item Value Reference Range Interpretation Comments POCT PREG (test code = 1605) Positive On board controls acceptable with C Yes Line (test code = 3574) POCT PREG LOT # (test code = 3575) POCT PREG TEST DATE (test code = 3576) [facility] URINALYSIS W/O SPECIFIC [id number] 15:20:00 Test Item Value Reference Range Interpretation [...] code = 3257) Large Negative - Negative [facility] [id number] 15:20:00 Test Item Value Reference Range Interpretation Comments POCT PREG (test code = 1605) Positive On board controls acceptable with C Yes Line (test code = 3574) POCT PREG LOT # (test code = 3575) POCT PREG TEST DATE (test code = 3576) [facility] URINALYSIS W/O SPECIFIC [id number] 15:20:00 Test Item Value Reference Range Interpretation [...] code = 3257) Large Negative - Negative [facility] [id number] 15:20:00 Test Item Value Reference Range Interpretation Comments POCT PREG (test code = 1605) Positive On board controls acceptable with C Yes Line (test code = 3574) POCT PREG LOT # (test code = 3575) POCT PREG TEST DATE (test code = 3575) [facility] URINALYSIS W/O SPECIFIC [id number] 15:20:00 Test Item Value Reference Range Interpretation [...] code = 3257) Large Negative - Negative [facility] [id number] 15:20:00 Test Item Value Reference Range Interpretation Comments POCT PREG (test code = 1605) Positive On board controls acceptable with C Yes Line (test code = 3574) POCT PREG LOT # (test code = 3575) POCT PREG TEST DATE (test code = 3576) [facility] URINALYSIS W/O SPECIFIC [id number] 15:20:00 Test Item Value Reference Range Interpretation [...] code = 3257) Large Negative - Negative [facility] [id number] 15:20:00 Test Item Value Reference Range Interpretation Comments POCT PREG (test code = 1605) Positive On board controls acceptable with C Yes Line (test code = 3574) POCT PREG LOT # (test code = 3575) POCT PREG TEST DATE (test code = 357) [facility] URINALYSIS W/O SPECIFIC [id number] 15:20:00 Test Item Value Reference Range Interpretation [...] code = 3257) Large Negative - Negative [facility] [id number] 15:20:00 Test Item Value Reference Range Interpretation Comments POCT PREG (test code = 1605) Positive On board controls acceptable with C Yes Line (test code = 3574) POCT PREG LOT # (test code = 3575) POCT PREG TEST DATE (test code = 357) [facility] URINALYSIS W/O SPECIFIC [id number] 15:20:00 Test Item Value Reference Range Interpretation [...] code = 3257) Large Negative - Negative [facility] [id number] 15:20:00 Test Item Value Reference Range Interpretation Comments POCT PREG (test code = 1605) Positive On board controls acceptable with C Yes Line (test code = 3574) POCT PREG LOT # (test code = 3575) POCT PREG TEST DATE (test code = 357) [facility] URINALYSIS W/O SPECIFIC [id number] 15:20:00 Test Item Value Reference Range Interpretation [...] code = 3257) Large Negative - Negative [facility] [id number] 15:20:00 Test Item Value Reference Range Interpretation Comments POCT PREG (test code = 1605) Positive On board controls acceptable with C Yes Line (test code = 3574) POCT PREG LOT # (test code = 3575) POCT PREG TEST DATE (test code = 3576) [facility] URINALYSIS W/O SPECIFIC [id number] 15:20:00 Test Item Value Reference Range Interpretation [...] code = 3257) Large Negative - Negative [facility] [id number] 15:24:00 Test Item Value Reference Range Interpretation Comments POCT PREG (test code = 1605) Negative On board controls acceptable with C Yes Line (test code = 3574) POCT PREG LOT # (test code = 3575) POCT PREG TEST DATE (test code = 3576) [facility] [id number] 15:24:00 Test Item Value Reference Range Interpretation Comments POCT PREG (test code = 1605) Negative On board controls acceptable with C Yes Line (test code = 3574) POCT PREG LOT # (test code = 3575) POCT PREG TEST DATE (test code = 3576) [facility]"
[2021-11-26] MEDS ORDERED: IBUPROFEN 100 MG/5 ML UCUP ONE (19:55)
[2021-11-26] MEDS ORDERED: NA CHLORIDE 0.9% 1,000 ML ONE (19:55)
--- NOTE | 2021-11-26 21:25 | ER ---
Nurse's Notes [facility] Name: Nabila Quinonez Age: 21 yrs Sex: Female : 2000 Arrival Date: 11/26/2021 Time: 18:43 Bed Waiting Private MD: Diagnosis: Presentation: 11/26 18:54 Chief complaint: Patient states: end of july took an pill, have been having kr3 periods every twice a month and now every two weeks. Chief complaint:. 18:54 Method Of Arrival: Ambulatory kr3 18:57 Coronavirus screen: Vaccine status: Patient reports being unvaccinated. Coronavirus kr3 screen: Client denies travel out of the [place] in the last 14 days. Ebola Screen: Patient denies travel to an Ebola-affected area in the 21 days before illness onset. Initial Sepsis Screen: Does the patient meet any 2 criteria? No. Patient's initial sepsis screen is negative. Does the patient have a suspected source of infection? No. Patient's initial sepsis screen is negative. Risk Assessment: Do you want to hurt yourself or someone else? Patient reports no desire to harm self or others. Onset of symptoms was August 10, 2021. 18:57 Acuity: FRENCH 4 kr3 Triage Assessment: 18:59 General: Appears in no apparent distress. comfortable, Behavior is calm, cooperative, kr3 appropriate for age. Pain: Complains of pain in back, abdomen and pelvis. Historical: - Allergies: 18:56 No Known Allergies; kr3 - Immunization history:: Client reports having NOT received the Covid vaccine. - Social history:: Smoking status: Reported history of juuling and/or vaping. Vital Signs: 18:57 BP 130 / 74; Pulse 69; Resp 16; Temp 98.2; Pulse Ox 100% on R/A; Weight 65.77 kg; kr3 Height 5 ft. 6 in. (167.64 cm); Pain 5/10; 18:57 Body Mass Index 23.40 (65.77 kg, 167.64 cm) kr3 ED Course: 18:43 Patient arrived in ED. mr 18:59 Triage completed. kr3 18:59 Arm band placed on right wrist. kr3 20:00 Aidan Holland PA is PHCP. cp 20:00 Aidan Kelly MD is Attending Physician. cp Administered Medications: No medications were administered Outcome: 21:25 Patient left the ED. vc1 Signatures: Cornelia Lock mr Aidan Holland PA PA cp Calcote, Vanessa RN RN vc1 Johanna Cole RN RN kr3
[2021-11-28 04:21] VITALS: BP 130/74; TEMP 98.2; O2SAT 100
== END 2021-11-26 21:25 | disposition left against medical advice (07) ==
LOC: ER 18:41
DX: Z53.21 Procedure and treatment not carried out due to patient leaving prior to being seen by health care provider (principal)
CPT/HCPCS: 99281; J7030